=== PATIENT | male | born 1965 | race Caucasian/White ===

== ENCOUNTER 2023-04-11 13:33 | Outpatient (OUT) | payer OTHER, SELFPAY ==
--- NOTE | 2023-04-11 14:00 | CA_ITS ---
Patient: SHELLI MILLIGAN Exam Date: 04/11/2023 : 1965 Gender:M Ordering : [facility] [place] Admission #: [id number] Family : Order #: [id number] CLICK HERE TO VIEW EXAM ECHOCARDIOGRAM REPORT PROCEDURE: CA ECHO DOPPLER COMPLETE INDICATIONS: Chronic diastolic heart failure COMPARISON: None. DESCRIPTION: COMPLETE ECHOCARDIOGRAM Real-time transthoracic echocardiography with 2D, M-mode, spectral and color flow Doppler performed. QUALITY: Technical quality was adequate. LEFT VENTRICLE: Mild dilatation. Thickened septal wall. LV EF: Global left ventricular systolic function is normal; visually estimated ejection fraction is 55 to 60%. DIASTOLIC: Diastolic function is indeterminant. ATRIAL SEPTUM: Inadequately seen. LEFT ATRIUM: Severe dilatation. RIGHT ATRIUM: Severe dilatation. RIGHT VENTRICLE: Mild dilatation. Normal right ventricular systolic function. TRICUSPID VALVE: Normal mobility and thickness. Mild regurgitation. Mild pulmonary hypertension. RVSP 41mmHg MITRAL VALVE: Normal mobility and thickness. No evidence of mitral valve stenosis. There is no mitral annular calcification. Trivial mitral regurgitation. AORTIC VALVE: Normal trileaflet appearance. Thickened aortic valve. Normal leaflet mobility. No evidence of aortic valve stenosis. Trivial aortic regurgitation. AORTIC ROOT: Normal diameter and appearance. PULMONIC VALVE: Normal thickness and mobility. No stenosis. Trivial regurgitation. PERICARDIUM: Anterior free space; trivial effusion versus fat pad. IVC: Collapses with inspirations. Severely dilated measuring 3.1cm. CONCLUSION: 1. Global left ventricular systolic function is normal; visually estimated ejection fraction is 55 to 60%. 2. Diastolic function is indeterminate. 3. Severe biatrial enlargement. 4. The right ventricle is mildly dilated with normal systolic function. 5. Mild tricuspid regurgitation. 6. Mildly elevated right ventricular systolic pressure. 7. Anterior free space; trivial effusion versus fat pad. Adult Echocardiography Procedure Report Left Ventricle LVEDD (3.7 - 5.6 cm): 5.88 cm LVESD (2.2 - 4.0 cm): 4.46 cm LVIVS thickness (0.6 - 1.2 cm): 1.64 cm LVPW thickness (0.5 - 1.0 cm): 1.02 cm e': 0.10 m/s E - e': 4.78 LVOT Max Gradient: 4.45 mm[Hg] LVOT Area (cm2): 1.05 m/s Peak Velocity (LVOT): 1.05 m/s Mean Velocity (LVOT): 0.69 m/s LVOT Diameter 2.23 cm Left Atrium LA Volume Index (2D A2C): 73.31 ml/m2 Left Atrium Systolic Dimension: 5.41 cm Mitral Valve MV E to A Ratio: 1.43 Mitral Valve A-Wave Peak Velocity: 0.35 m/s Mitral Valve E-Wave Peak Velocity: 0.50 m/s Right Ventricle RV Internal Diastolic Dimension: 4.21 cm Aorta AO Root Diam: 3.50 cm Ascending Ao Diam: 3.19 cm Aortic Valve AoV Area (Peak Adryan): 3.52 cm2, 3.52 cm2 AoV Area (VTI): 3.27 cm2, 3.27 cm2 Peak Velocity(Antegrade Flow): 1.17 m/s Peak Gradient(Antegrade Flow): 5.49 mm[Hg] Mean Velocity(Antegrade Flow): 0.83 m/s Mean Gradient(Antegrade Flow): 3.11 mm[Hg] Velocity Time Integral: 26.72 cm Tricuspid Valve Peak Velocity (Regurgitant Flow): 2.45 m/s, 2.85 m/s Pulmonic Valve Peak Velocity: 0.80 m/s Peak Gradient: 2.43 mm[Hg], 2.72 mm[Hg] Right Atrium Right Atrium Systolic Pressure: 112.76 ml, 112.76 ml Dictated by: Sonali Lugo M.D. on 04/12/2023 at 16:52 Approved by: Sonali Lugo M.D. on 04/12/2023 at 16:55
== END 2023-04-11 13:34 ==
LOC: CARD 13:37
PROVIDERS: PCP Family Medicine; Visit Provider Nurse Practitioner Family
DX: I50.32 Chronic diastolic (congestive) heart failure (principal); I07.1 Rheumatic tricuspid insufficiency
CPT/HCPCS: 93306; 93356

== ENCOUNTER 2025-08-12 12:48 | Outpatient (OUT) | payer OTHER, SELFPAY ==
--- OUTSIDE RECORDS SUMMARY | 2025-08-12 12:53 | XMS_ITS | Clinical Summary ---
Author Organization [facility] Address [address] [place] [address] Care Team Providers Care Enrollment Clerk Name Role Phone Nelida Stock HOPPER FILLER-Bi Primary Care Provider [phone] Allergies Active AllergyReactionsCriticalityNoted DateCommentsBee Venom Protein (Honey Bee)Yztpaes3809/05/2023olchicineOther,Lluvaab2910/04/2013 Sleepiness Sleepiness Sleepiness Sleepiness Pollen IiqrkxpqFusrnrz48/14/2023 Medications MedicationSigDispense QuantityRefillsLast FilledStart DateEnd DateStatus buPROPion SR (Wellbutrin SR) 150 mg 12 hr tablet Take 300 mg by mouth in the morning.08/03/2022ctive temazepam (Restoril) 30 mg capsule Take 1 capsule by mouth at bedtime.Active traMADol (Ultram) 50 mg tablet TAKE 1 TABLET BY MOUTH TWICE DAILY NEEDED FOR PAIN (M48.02) DUE NOW 30 DAYS Active baclofen (Lioresal) 20 mg tablet if needed at bedtime.08/10/2022ctive gabapentin (Neurontin) 300 mg capsule 600 mg two times daily.09/06/2023ctive esomeprazole (NexIUM) [address] capsule Take 40 mg by mouth before breakfast. 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 90 tablet 5Active busPIRone (Buspar) 10 mg tablet Take 1 tablet by mouth two times daily.5Active tadalafil (Cialis) 20 mg tablet Take 1 tablet by mouth if needed.5Active apixaban (Eliquis) 5 mg tablet Indications:Cerebrovascular accident (CVA), unspecified mechanism (CMS/HCC)Take 1 tablet (5 mg) by mouth in the morning and at bedtime. 180 tablet ctive furosemide (Lasix) 40 mg tablet Indications:Chronic diastolic heart failure (CMS/HCC)Take 1 tablet (40 mg) by mouth once daily as directed. In addition to 20mg tablets daily = 60mg daily 90 tablet 6Active Additional Information Patient taking differently:40 mg oralAs needed, In addition to 20mg tablets daily = 60mg daily, Reported on 07/23/2025 furosemide (Lasix) 20 mg tablet Indications:Chronic diastolic heart failure (CMS/HCC)Take 1 tablet (20 mg) by mouth once daily as directed. In addition to 40mg tablets = 60mg daily 90 tablet 5Active Additional Information Patient taking differently:20 mg oralAs needed, In addition to 40mg tablets = 60mg daily, Reported on 07/23/2025 metoprolol succinate XL (Toprol-XL) 25 mg 24 hr tablet Indications:Paroxysmal atrial fibrillation (CMS/HCC)Take 1 tablet (25 mg) by mouth in the morning. Do not crush or chew. 90 tablet 506Active dofetilide (Tikosyn) 250 mcg capsule Indications:PAF (paroxysmal atrial fibrillation) (CMS/HCC)TAKE 1 CAPSULE (250 MCG) BY MOUTH TWO TIMES DAILY. 60 capsule 1105Active Active Problems ProblemNoted DateDiagnosed DateCervical niluifytlpuoh09/23/2025Left elbow pain 07/15/2025hest pain07/03/2025ute stress kfbausfi27/10/1975Sioxxxr19/10/2025 Colon cancer ztusphwjg77/10/2025ute ischemia of small intestine due to thrombosis of mesenteric vein10/08/2024trial flxdlitxnkpp82/17/2024History of ecrjqw8310/08/2024Ischemic bowel kkwlgnf4510/08/2024S/P cervical discectomy 10/08/2024Superior mesenteric artery fkuhecgzog31/17/2024trial flutter 08/13/2024cute abdominal pain2024Neck pain06/12/2024t increased risk of exposure to COVID-19 virus04/18/2024trial flutter with rapid ventricular dxeamuni66/27/1437Bmdi97/27/2024Gouty wmonhzcxz01/27/7140Kprbpgld83/27/2024 Ischemia and infarction of iykaqw1304/18/2024Left arm vzaviulg96/27/2024Left shoulder pain04/18/2024Macrocytosis without wergnv1804/18/2024Numbness of fingers 04/18/2024Shortness of cuxujj6804/18/2024cid uclfbt22rthritis arpal tunnel ojibpkfc14hanges in skin aylvgst91DD (degenerative disc disease), qrlsobnt10/08/2023 09/29/2023ysphagia, jxcasnvpete70ystonia musculorum htxvvfstu60MyalgiaRight sided weakness Spasmodic xgjsyiwckts69Stroke due to embolism of basilar zzbsyx65Impairment of kgfhxqw2609/20/2023 09/29/2023Stroke due to occlusion of basilar scfrty21Edema cute on chronic diastolic heart Acute pulmonary edema Overview (09/29/2023): Last Assessment & Plan: Findings on chest x-ray and CT abdomen suggestive of vascular congestion and heart failure. Previous history of heart failure. Reviewed right left heart catheterization from [facility] in 2017. Diastolic heart failure at that time. 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 Can discharge with Lasix 20 mg as needed for 5 pound weight gain or shortness of breath. We can consider spironolactone to help with its potassium sparing effects given his chronic issues with hypokalemia. Also discussed with patient MRI findings suggestive of hypertrophic cardiomyopathy. He has asymmetric septal hypertrophy in the inferior septal wall. He also has scar present. Patient has no obstruction. Patient stated his family history is significant for extensive cardiac disease on his father's s shakila. Said everyone on his father's side has young unfortunately his mother's side she is a [place] immigrant and does not know much about her family history. Elevated dpiddkyp37 Overview (09/29/2023): Last Assessment & Plan: Trivial elevation, unclear etiology Possibly from renal infarct? D-dimer negative, unlikely pulmonary embolism Suspect related to diastolic dysfunction and decompensated diastolic heart failure. No coronary artery disease based on heart catheterization from 12/2016 only with myocardial bridging segments. Renal infarctionHypertensionCHF (congestive heart failure)Coronary-myocardial bridgeAortic root dilationLeft atrial enlargement Encounters DateTypeDepartmentCare ZkbcZrrkjbdfoin54/08/2025Orders Only [facility] V[facility] Center Vascular Lab [address] [place] [address] Bettina Gordon RN Acute on chronic diastolic heart failure (CMS/HCC) (Primary Dx)07/23/2025 8:30 AM EDT - 07/23/2025 12:[address] [facility] Heart and Vascular Center Vascular Lab [address] [place] [address] Jose Miguel Spivey MD Ablation a-fib w/ pvi [41600 (CPT??)]07/23/2025 8:24 AM EDTAnesthesia Event [facility] Heart [facility] [place] [facility] [address] [facility] [place] [address] Luis Alberto David MD Meehl, Austin, MD 07/23/2025 7:22 AM EDT - 07/23/2025 2:25 PM EDTHospital Encounter [facility] [address] [place] [address] Jose Miguel Spivey MD Paroxysmal atrial fibrillation (CMS/HCC) Discharge Disposition: Home or Self Care ()07/23/20253591Avnrtj03/19/2025Telephone [place] [address] [facility] [place] [address] Alecia Rodrigues MA 07/09/20250628Fjqisw72/11/2025[facility] [address] [place] [phone] Jose Miguel Spivey MD PAF (paroxysmal atrial fibrillation) (CMS/HCC)07/01/2025Orders Only [place] [address] [facility] [place] [phone] Alecia Rodrigues MA Paroxysmal atrial fibrillation (CMS/HCC) (Primary Dx)06/30/2025Telephone [facility] [address] [place] [facility] [place] [address] Alecia Rodrigues MA 06/23/2025Orders Only [facility] [address] [place] [phone] Felipe Nathan MD 06/20/2025 8:00 AM EDTAncillary Procedure [facility] [address] [place] [phone] Awareness of xkiglnhctl64/27/2025[facility] [address] [place] [facility] [place] [address] Sabina Lopez MA Chronic diastolic heart failure (CMS/HCC)05/20/2025 6:00 PM EDTAncillary Procedure [facility] [address] [place] [address] Awareness of heartbeatsfrom Last 3 Months Family History Medical HistoryRelationNameCommentsCoronary artery diseaseFatherCancerMaternal GrandfatherCancerMaternal GrandmotherCancerMotherRelationNameStatusComments FatherDeceasedMaternal GrandfatherMaternal GrandmotherMotherAlive Social History Tobacco UseTypesPacks/DayYears UsedDateSmoking Tobacco: FormerCigarettesPassive Smoke Exposure: PastSmokeless Tobacco: Never Tobacco Cessation:Counseling Given: Not Answered Alcohol UseStandard Drinks/WeekCommentsYes3 (1 standard drink = 0.6 oz pure alcohol)3 times per week beerUT Safety & EnvironmentAnswerDate RecordedFear of Current or Ex-PartnerNot on file12/14/2023Emotionally AbusedNot on file 4Physically AbusedNot on file12/14/2023Sexually AbusedNot on file 4Physically or Sexually AbusedNot on file12/14/2023Sex and Gender InformationValueDate RecordedSex Assigned at DefpaAkaj63/01/2025 7:22 AM EDT Legal HupGqed7404/20/2022 11:54 PM EDTGender VytkfwcbQdtk80/01/2025 7:22 AM EDT Sexual OrientationHeterosexual or Mareuznn83/01/2025 7:22 AM EDT Last Filed Vital Signs Vital SignReadingTime TakenCommentsBlood Kakkczvl176/7610 12:15 PM EDT Vmzjs669407/23/2025 12:15 PM JTEEbbdmjtcifr51 ??C (96.8 ??F)07/23/2025 11:15 AM EDTRespiratory Mhnr2210 12:15 PM EDTOxygen Eiqjiswkbb59%07/23/2025 12:15 PM EDTInhaled Oxygen Concentration--Oybldh83.8 kg (220 lb)04/01/2025 10:59 AM KNVXgmfdd953.5 cm (6' 3 )04/01/2025 10:59 AM EDTBody Mass Index27. 10:59 AM EDT Plan of Treatment DateTypeDepartmentCare Team (Latest Contact Info)Egtatvbscbn72/21/2025 1:40 PM EDTFoll-[facility] [address] [place] [facility] [place] [facility] [place] [phone] Jessica Rausch, CLINICAL OPERATIONS CONSULTANT [address] [place] [phone] 08/28/2025 9:00 AM ESTFollow-[facility] [address] [place] [facility] [place] [phone] Cedric Branham, CLINICAL OPERATIONS CONSULTANT [address] [place] [address] Health MaintenanceDue DateLast DoneCommentsCT Sizwdyhaexei1966FIT-DNA 1966FIT1966FOBT07/16/19661932Eoanifhuvyfum1966Depression Screening 1978Pneumococcal Vaccine: Pediatrics (0 to 5 Years) and At-Risk Patients (6 to 64 Years) (1 of 2 - PCV)1985Adult Zfuvayz7007/16/1988Colonoscopy /Colorectal Cancer Whlwiyqme08/14/2024COVID-19 Vaccine ( season)/, 10/21/2021, 01/01/2021, Additional history existsInfluenza Vaccine (#1)06/23/2025Hepatitis B CtbvhctnHsjrqzzup28/30/2008, 11/05/2007, 10/04/2007Zoster JinougmnWcvzhbeeh58/04/2024, 01/09/2024HIB Vaccines Aged OutNo longer eligible based on patient's age to complete this topicHPV VaccinesAged OutNo longer eligible based on patient's age to complete this topic IPV VaccinesAged OutNo longer eligible based on patient's age to complete this topicMeningococcal B VaccineAged OutNo longer eligible based on patient's age to complete this topicMeningococcal VaccineAged OutNo longer eligible based on patient's age to complete this topicRotavirus VaccinesAged OutNo longer eligible based on patient's age to complete this topic Medical Devices ImplantedTypeAreaManufacturerDevice IdentifierShelf Expiration DateModel / Serial / LotMonitor,Cardiac,Lux,Dxii+[facility] - [id number] - [id number] Implanted:Qty: 1 on 09/16/2024 by Jose Miguel Spivey [facility] CenterImplant[facility] Loop RecorderBoston Oatgzmgfjb28/[id number] / [id number] / Procedures Procedure NamePriorityDate/TimeAssociated DiagnosisCommentsECG 12-LEADRoutine 07/23/2025 11:34 AM EDT ABLATION A-FIB W/ XUWJfglvuj93/01/2025 11:07 AM EDT Paroxysmal atrial fibrillation (CMS/HCC) ACTIVATED CLOTTING EJPZUyygfww16/01/2025 10:58 AM EDT NFISCJQXQYUhyaliy98/01/2025 10:32 AM EDT DPCZWSUYSNIDsikwfu01/01/2025 10:32 AM EDT HIGH SENSITIVITY TROPONIN LEcxnrqm28/01/2025 10:32 AM EDT BILIRUBIN, YESIKQFvqyboq84/01/2025 10:32 AM EDT BILIRUBIN, WEOUGYnbkurb11/01/2025 10:32 AM EDT LACTATE AFTYHOVYIREJHAudfhyu92/01/2025 10:32 AM EDT ACTIVATED CLOTTING DFKYUpomqev77/01/2025 10:22 AM EDT ACTIVATED CLOTTING NIMEVlphgjq46/01/2025 10:03 AM EDT ACTIVATED CLOTTING RHQUXtvkbhb17/01/2025 9:43 AM EDT ANESTHESIA ARTERIAL LINE PSETYCMORWyhrgsq65/01/2025 8:56 AM EDT TN AN ELECTIVE ENDOTRACHEAL EMGUHNXvyfvrp36/01/2025 8:46 AM EDT ECG 12-MXHLQrcdpnr17/01/2025 8:31 AM EDT POCT GLUCOSE METER UNSOLICITED CFKVQHIChuvokg11/01/2025 8:00 AM EDT PROTIME-XTKYxbtoni92/01/2025 7:54 AM EDT CARDIAC DEVICE CHECK CHECK - NOVRQBXeuobbp57/04/2025 9:40 AM EDT Awareness of heartbeats CARDIAC DEVICE CHECK - REMOTE - LOOP RECORDER (ILR)Vudurje8906/23/2025 12:00 AM EDTCARDIAC DEVICE CHECK CHECK - MHXBDNFdrtjai30/07/2025 2:54 PM EDT Awareness of heartbeats CARDIAC DEVICE CHECK CHECK - RYMTGAQdiwbzt14/22/2025 12:47 PM EDT Awareness of heartbeats from Last 3 Months Results * ECG 12 lead (07/23/2025 11:34 AM EDT) Only the most recent of2 resultswithin the time period is included. ComponentValueRef RangeTest MethodAnalysis TimePerformed AtPathologist Signature Ventricular Qicf96PZDVK MUSEAtrial Rtnf92LHEPY MUSEPR Jxowdqmy868fyFO MUSEQRS QGXHEXJW477xhPI MUSEQT Oexkqmjs590rpPH MUSEQTC CALCULATION(BAZETT)510msGE MUSEP Ccxf30oltmjtcHV ZDSAX-Swln-05llmuvykSE MUSET Wave Kket173zhdgubiKV MUSESpecimen (Source)Anatomical Location / LateralityCollection Method / VolumeCollection TimeReceived Time07/23/2025 11:29 AM EDT1 4:37 PM EDT Impressions GE MUSE - 07/23/2025 4:37 PM EDT Normal sinus rhythm Incomplete right bundle branch block ST & T wave abnormality, consider anterolateral ischemia Prolonged QT Abnormal ECG When compared with ECG of 23-JUL-2025 08:17, No significant change was found Confirmed by Demetrice NATHAN SAMER J. ([id number]) on 07/23/2025 4:37:20 PM Narrative Procedure Note Felipe Nathan MD - 07/23/2025 IMPRESSION: Normal sinus rhythm Incomplete right bundle branch block ST & T wave abnormality, consider anterolateral ischemia Prolonged QT Abnormal ECG When compared with ECG of 23-JUL-2025 08:17, No significant change was found Confirmed by Demetrice NATHAN SAMER J. (57) on 07/23/2025 4:37:20 PM Authorizing ProviderResult TypeResult StatusPamichelle ZABALA ORDERABLESFinal ResultPerforming OrganizationAddressCity/State/ZIP CodePhone Number GE MUSE * ABLATION A-FIB W/ PVI (07/23/2025 11:07 AM EDT)Anatomical RegionLaterality ModalityOtherSpecimen (Source)Anatomical Location / LateralityCollection Method / VolumeCollection TimeReceived Time Narrative 07/23/2025 11:08 AM EDT Table formatting from the original result was not included. ATRIAL FIBRILLATION ABLATION PROCEDURE NOTE DATE OF PROCEDURE: ??07/23/2025 PERFORMING PHYSICIAN: Dr. Jose Miguel Spivey HOSPICE MANAGER: LORIN CONSENT: Patient NAME OF THE PROCEDURE: Pulmonary Vein Isolation and Comprehensive EP study. INDICATIONS FOR PROCEDURE: 1. Paroxysmal atrial fibrillation. PROCEDURES PERFORMED: 1. Sonosite guided venous access as noted below and images stored. 2. Comprehensive EP study and catheter ablation for persistent atrial fibrillation through the pulmonary vein isolation technique. This includes right atrial recording and pacing, His bundle recording and right ventricular recording and pacing. 3. Intracardiac EP 3D mapping. 4. Intracardiac echocardiogram 5. Left atrial and coronary sinus recording and pacing to assess ablation results. 6. Left heart pressure measurements and LV pacing and recording. 7. Induction of arrhythmia and testing of ablation results using intravenous adenosine infusion. 8. Fluroscopy. FLUROSCOPY: 12.4min/92mGray EBL: 25cc ?? PROCEDURE NOTE: Pt was brought to EP lab and she was in sinus rhythm, so SHIV was deferred. Thereafter, we proceeded to do atrial fibrillation ablation. ??Both the groins were then prepared and draped. Ultrasound was used to determine the course and patency of the femoral veins on both sides and they were noted to be patent and the image stored in PACS. After infiltration with 1% lidocaine, 3 venous sheaths were placed in the right as noted below. RFV: 8Fx1 CS Catheter (EZ Steer) 9Fx1: ICE catheter. 8F -->17F: Faradrive sheath for PFA catheter Heparin bolus was given followed by additional bolus and continuous intravenous drip to target ACT around 350. An intracardiac ultrasound catheter was inserted into the right atrium to examine the right atrial anatomy, atrial septum, pulmonary vein anatomy and to monitor for pericardial effusion and guide transseptal access. ICE revealed that the patient had a significantly dilated right atrium and left atrium and no pericardial effusion. At this point I decided to proceed with the transseptal puncture to perform A. fib ablation. Single transseptal access technique was used to cross to the left side. Following the first transeptal access, which was achieved via puncture of the thinner aspect of the septum using Nicole needle, Octoray catheter was placed in the left atrium. Pulmonary vein and left atrial anatomic mapping were performed using a 3-D CARTO computer-based mapping system. Identification of the pulmonary vein ostia was assisted by the left atrial signals on the ablation catheter, the ICE catheter and the Octoray catheter placed in the individual pulmonary veins. Mapping revealed a small low voltage area in the posterior LA of size 3cms diameter. I then proceeded to exchange the SL1 for 17F Faradrive sheath. Farawave multipolar catheter was advanced over a wire with negative aspiration in periodic fashion to avoid any air bubbles. Thereafter the catheter was advanced to each of the veins over the wire to maintain coaxial placement of catheter. 2-3 PFA energy pulses were given in each position and then position rotated to 36degrees to get new location and repeat PFA energy were provided. Then this process was repeated in the flower configuration in each veins. ??This led to complete isolation of each vein. Repeat mapping with Octoray catheter revealed isolation of all 4 veins. ?? Exit block verified with pacing from each vein as well as different locations around the vein.LV pacing revealed no left sided retrograde accessory pathway. Adenosine did not reveal any reconnection. Burst pacing down to 300ms induced non sustained atrial fibrillation of few beats and then self terminated. I decided to proceed to the right atrium and then proceeded to verify prior CTI ablation which was still noted. Bidirectional block was demonstrated with pacing revealing a timing of 194ms. The ICE catheter was used to reexamine the intracardiac anatomy and this showed no pericardial effusion. ICE catheter and all catheters were removed. Venous sheaths were pulled, and hemostasis achieved with Perclose sutures and Vascade closure device.He was transferred to observation bay for observation.Esophagus was mapped towards the left side with change of temp from basleline of 35.1 to 35.6C. LA baseline (mmHg) ??33/17 HR 53bpm LA 600ms pacing (mmHg) 22/15 LA 500ms pacing (mmHg) 26/15 AHms 73, 77 HVms 46, 47 VERPms 600/310, VA condunction+ AV Wenkebach ms 390ms ?? AH jump ms NA AVNERP ms NA AERP ms 600/320 POST PROCEDURE DIAGNOSIS 1. Paroxysmal atrial fibrillation s/p PVI (WACA) with PFA. ?? 2. CTI flutter s/p prior ablation with bidirectional block demonstrated again 2. EP study revealing no retrograde accessory pathway. 3. Normal LA voltage except small area noted in the posterior aspect that is 2-3cms diameter. 4. Elevated LA pressures. SPECIMEN REMOVED: None PLAN: 1. Anticoagulation after 2 hrs of sheath removal. 2. Protonix 40mg bid x 1 month. 3. Groin precautions. Jose Miguel Spivey MD Cardiac Electrophysiology ?? Authorizing ProviderResult TypeResult StatusPaul Patric [facility] ELECTROPHYSIOLOGY PROCEDURESFinal Result * Activated clotting time (07/23/2025 10:58 AM EDT) Only the most recent of4 resultswithin the time period is included. ComponentValueRef RangeTest MethodAnalysis TimePerformed AtPathologist Signature Activated Clotting Bdrw00736 - 152 07/23/2025 11:00 AM [facility] ([facility])Specimen (Source)Anatomical Location / LateralityCollection Method / VolumeCollection TimeReceived TimeBloodVenous blood specimen / Moleudx3207/23/2025 10:58 AM EDT1 11:00 AM EDT Narrative Authorizing ProviderResult TypeResult Francia BOTELLO POINT OF CARE TEST DOCKED DEVICE UNSOLICITED RESULTSFinal ResultPerforming OrganizationAddress City/State/ZIP CodePhone Number [facility]) [place] [address] * (ABNORMAL) High Sensitivity Troponin I (07/23/2025 10:32 AM EDT)ComponentValue Ref RangeTest MethodAnalysis TimePerformed AtPathologist SignatureHigh Sensitivity Troponin I84(HH)<20 ng/L1 12:25 PM [facility] ([facility])Specimen (Source)Anatomical Location / LateralityCollection Method / VolumeCollection TimeReceived TimeBloodVenous blood specimen / UnknownArterial Line / Oiiutop0107/23/2025 10:32 AM EDT1 10:32 AM EDT Narrative Authorizing ProviderResult TypeResult Francia BOTELLO BLOOD ORDERABLES Final ResultPerforming OrganizationAddressCity/State/ZIP CodePhone Number [facility]) [address] [place] [phone] * (ABNORMAL) Hemoglobin (07/23/2025 10:32 AM EDT)ComponentValueRef RangeTest MethodAnalysis TimePerformed AtPathologist UhgbwvkfzNxyzoangkx81.2(L)13.0 - 17.0 g/dL07/23/2025 10:53 AM [facility] ([facility])Specimen (Source) Anatomical Location / LateralityCollection Method / VolumeCollection Time Received TimeBloodVenous blood specimen / UnknownArterial Line / Unknown 07/23/2025 10:32 AM EDT1 10:32 AM EDT Narrative Authorizing ProviderResult TypeResult StatusJose Miguel BOTELLO BLOOD ORDERABLES Final ResultPerforming OrganizationAddressCity/State/ZIP CodePhone Number [facility]) [address] [place] [phone] * (ABNORMAL) Lactate dehydrogenase (07/23/2025 10:32 AM EDT)ComponentValueRef RangeTest MethodAnalysis TimePerformed AtPathologist JyizratieNF902(L)140 - 271 U/L1 11:11 AM [facility] ([facility])Specimen (Source) Anatomical Location / LateralityCollection Method / VolumeCollection Time Received TimeBloodVenous blood specimen / UnknownArterial Line / Unknown 07/23/2025 10:32 AM EDT1 10:32 AM EDT Narrative Authorizing ProviderResult TypeResult Francai BOTELLO BLOOD ORDERABLES Final ResultPerforming OrganizationAddressCity/State/ZIP CodePhone Number [facility] ([facility]) [address] [place] [address] * Haptoglobin (07/23/2025 10:32 AM EDT)ComponentValueRef RangeTest Method Analysis TimePerformed AtPathologist VgxsmsxckRdnmgvzfara805.032.0 - 197.0 mg/dL07/23/2025 1:17 PM [facility] ([facility])Comment:Testing performed using a new methodology, turbidimetry. Normal ranges have been updated. Old normal range was 26-164 mg/dL.Specimen (Source)Anatomical Location / LateralityCollection Method / VolumeCollection TimeReceived TimeBloodVenous blood specimen / UnknownArterial Line / Zrezxwe8407/23/2025 10:32 AM EDT 07/23/2025 10:32 AM EDT Narrative Authorizing ProviderResult TypeResult Francia BOTELLO BLOOD ORDERABLES Final ResultPerforming OrganizationAddressCity/State/ZIP CodePhone Number [facility]) [address] [place] [address] * Bilirubin, direct (07/23/2025 10:32 AM EDT)ComponentValueRef RangeTest Method Analysis TimePerformed AtPathologist SignatureBilirubin, Direct0.10 - 0.2 mg/dL07/23/2025 11:11 AM [facility] ([facility])Specimen (Source) Anatomical Location / LateralityCollection Method / VolumeCollection Time Received TimeBloodVenous blood specimen / UnknownArterial Line / Unknown 07/23/2025 10:32 AM EDT1 10:32 AM EDT Narrative Authorizing ProviderResult TypeResult Francia BOTELLO BLOOD ORDERABLES Final ResultPerforming OrganizationAddressCity/State/ZIP CodePhone Number [facility]) [place] [address] * Bilirubin, total (07/23/2025 10:32 AM EDT)ComponentValueRef RangeTest Method Analysis TimePerformed AtPathologist SignatureTotal Bilirubin0.60.3 - 1.0 mg/dL07/23/2025 11:11 AM [facility] ([facility])Specimen (Source) Anatomical Location / LateralityCollection Method / VolumeCollection Time Received TimeBloodVenous blood specimen / UnknownArterial Line / Unknown 07/23/2025 10:32 AM EDT1 10:32 AM EDT Narrative Authorizing ProviderResult TypeResult Francia BOTELLO BLOOD ORDERABLES Final ResultPerforming OrganizationAddressCity/State/ZIP CodePhone Number [facility]) [place] [address] * ANESTHESIA ARTERIAL LINE PLACEMENT (07/23/2025 8:56 AM EDT) Narrative Luis Alberto David MD - 07/23/2025 8:56 AM EDT Luis Alberto David MD 07/23/2025 12:28 PM Arterial Line: Date/Time: 07/23/2025 8:56 AM An arterial line was placed Procedure performed using ultrasound guidance.in the OR for the following indication(s): continuous blood pressure monitoring and blood sampling needed. A 20 G (size), 5 cm (length), Angiocath (type) catheter was placed, into the Right radial artery, secured by Tegaderm and tape. Events: patient tolerated procedure well with no complications. Staffing Performed: resident/SITE DIRECTOR/CAA Anesthesiologist: Luis Alberto David MD Resident/SITE DIRECTOR: Jarret Perez MD Performed by: Jarret Perez MD Authorized by: Luis Alberto David MD ?? Authorizing ProviderResult TypeResult Teresita David MDANESTHESIA ORDERABLESFinal Result * TN AN ELECTIVE ENDOTRACHEAL AIRWAY (07/23/2025 8:46 AM EDT) Luis Alberto Gerard MD - 07/23/2025 8:46 AM EDT Luis Alberto David MD 07/23/2025 12:28 PM Airway Date/Time: 07/23/2025 8:46 AM Reason: elective Airway not difficult General Information and Staff Patient location during procedure: OR Anesthesiologist: Luis Alberto David MD Resident/SITE DIRECTOR/CAA: Jarret Perez MD Performed: resident/SITE DIRECTOR/CAA Patient Condition Indications for airway management: anesthesia Patient position: sniffing Planned trial extubation Sedation level: deep Final Airway Details Preoxygenated: yes Final airway type: endotracheal airway Successful airway: ETT Cuffed: yes Successful intubation technique: video laryngoscopy Adjuncts used in placement: intubating stylet Endotracheal tube insertion site: oral Blade: Hamilton Blade size: #4 ETT size (mm): 8.0 Cormack-Lehane Classification: grade I - full view of glottis Placement verified by: chest auscultation and capnometry Measured from: lips ETT to lips (cm): 23 Number of attempts at approach: 1 Number of other approaches attempted: 0 Authorizing ProviderResult TypeResult StatusMutiffany David MDANESTHESIA ORDERABLESFinal Result * POCT glucose meter (07/23/2025 8:00 AM EDT)ComponentValueRef RangeTest Method Analysis TimePerformed AtPathologist SignatureGlucose IMF22717 - 105 mg/dL 07/23/2025 8:15 AM [facility]TM[facility] ([facility])Comment:ngrothaSpecimen (Source)Anatomical Location / LateralityCollection Method / VolumeCollection TimeReceived TimeBloodCapillary blood specimen / Zcbrhup6207/23/2025 8:00 AM EDT 07/23/2025 8:15 AM EDT Narrative [facility] ([facility]) - 07/23/2025 8:15 AM EDT Waived Testing in the ED is performed under the ED CLIA certificate #[id number]. Authorizing ProviderResult TypeResult StatusJose Miguel BOTELLO BLOOD ORDERABLES Final ResultPerforming OrganizationAddressCity/State/ZIP CodePhone Number [facility] ([facility]) [address] [place] [address] * Protime-INR (07/23/2025 7:54 AM EDT)ComponentValueRef RangeTest MethodAnalysis TimePerformed AtPathologist XbhqepszzVgqbbhq49.912.3 - 14.8 Vuyefkb6807/23/2025 8:23 AM EDTMIMBRES [facility] ([place])INR1.070.90 - 1.1010 8:23 AM EDT [facility] ([facility])Comment: [facility] RECOMMENDED INR FOR WARFARIN THERAPY CONDITION ?INR PROPHYLAXIS OF VENOUS THROMBOSIS ? 2-3 (HIGH-RISK SURGERY) TREATMENT OF VENOUS THROMBOSIS ? 2-3 TREATMENT OF PULMONARY EMBOLISM ?2-3 PREVENTION OF SYSTEMIC EMBOLISM: ? 2-3 ?ACUTE MYOCARDIAL INFARCTION ?TISSUE HEART VALVES ?VALVULAR HEART DISEASE ?ATRIAL FIBRILLATION ?RECURRENT SYSTEMIC EMBOLISM MECHANICAL HEART VALVE ? 2.5-3.5 FROM: ORAL ANTICOAGULANTS. ??MECHANISM OF ACTION, CLINICAL EFFECTIVENESS, AND OPTIMAL THERAPEUTIC RANGE. ??CHEST 1995;108:231S-246S. Specimen (Source)Anatomical Location / LateralityCollection Method / Volume Collection TimeReceived TimeBloodVenous blood specimen / UnknownVenipuncture / Cjptqjj4807/23/2025 7:54 AM EDT1 8:04 AM EDT Narrative Authorizing ProviderResult TypeResult StatusJose Miguel Spivey MDLAB BLOOD ORDERABLES Final ResultPerforming OrganizationAddressCity/State/ZIP CodePhone Number [facility] ([facility]) [address] [place] [address] * CARDIAC DEVICE CHECK - REMOTE - LOOP RECORDER (ILR) (06/26/2025 9:40 AM EDT) Only the most recent of3 resultswithin the time period is included. Specimen (Source)Anatomical Location / LateralityCollection Method / Volume Collection TimeReceived Time Narrative Authorizing ProviderResult TypeResult StatusJose Miguel Spivey MDCV IMPLANTABLE CARDIAC DEVICE PROCEDURESFinal ResultPerforming OrganizationAddressCity/State/ZIP Code Phone Number [facility] * Cardiac device check - Remote loop recorder (ILR) (06/23/2025 12:00 AM EDT) Anatomical RegionLateralityModalityOtherSpecimen (Source)Anatomical Location / LateralityCollection Method / VolumeCollection TimeReceived Time06/23/2025 Narrative Authorizing ProviderResult TypeResult StatusFelipe Nathan [facility] IMPLANTABLE CARDIAC DEVICE PROCEDURESFinal Result from Last 3 Months Insurance Advance Directives * Full Code (Latest Code Status on File) Date ActivatedDate PsekgjvrokoAttikehw81/1/2025 11:18 AM07/23/2025 5:38 PM Care Teams Team MemberRelationshipSpecialtyStart DateEnd Date Nelida Stock FNP-C [address] [place], [place] [id number] PCP - GeneralNurse Aqxaxhtiwknr11/20/25
--- OUTSIDE RECORDS SUMMARY | 2025-08-12 12:53 | XMS_ITS | Clinical Summary ---
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 Name Role Phone Taina Colindres MD Primary Care Provider [phone] Allergies Active AllergyReactionsCriticalityNoted DateCommentsBeesOther: See Comments 12/26/2012 Mild, swelling,reddness ColchicineOther: See Mnjzlhxh01/13/2013 Sleepiness Medications MedicationSigDispense QuantityRefillsLast FilledStart DateEnd DateStatus clonazePAM (KLONOPIN) 1 mg tablet Take 1 tablet by mouth twice daily.12/26/2012ctive baclofen 20 mg tablet Take 20 mg by mouth three times daily as needed.12/26/2012ctive methylPREDNISolone (MEDROL, BELL,) 4 mg Dose-Pack Indications:Diarrhea,Weight loss,Elevated serum GGT levelTake by mouth. As Instructed per packageActive lansoprazole (PREVACID) 30 mg capsule Indications:Diarrhea,Weight loss,Elevated serum GGT levelTake 30 mg by mouth once daily.Active oxyCODONE-acetaminophen 7.5-325 mg tablet Indications:Diarrhea,Weight loss,Elevated serum GGT levelTake 1 tablet by mouth every 4 hours as needed.Active ondansetron (ZOFRAN) 4 mg tablet Indications:Diarrhea,Weight loss,Elevated serum GGT levelTake 4 mg by mouth every 8 hours as needed.Active pantoprazole 40 mg tablet Indications:Diarrhea,Weight loss,Elevated serum GGT levelTake 40 mg by mouth once daily.Active LORazepam (ATIVAN) 0.5 mg tab Indications:Diarrhea,Weight loss,Elevated serum GGT levelTake 1 tablet by mouth every 8 hours. 10 tablet ctive Active Problems ProblemNoted DateDiagnosed DateSpasmodic torticollisDysphagia, unspecified(787.20)MyalgiaDDD (degenerative disc disease), lumbarDDD (degenerative disc disease), cervicalLumbar radiculopathyCervical radiculopathy Carpal tunnel syndromeDystonia musculorum deformansAcid refluxArthritis Family History Medical HistoryRelationCommentsHeartMaternal Aunt 1heart attackDiabetesMaternal Aunt 2CancerMaternal Aunt 3HeartMaternal Uncle 1heart attackDiabetesMaternal Uncle 2CancerMaternal Uncle 3ArthritisMotherCancerMotherHeartPaternal Aunt 1 heart attackDiabetesPaternal Aunt 2CancerPaternal Aunt 3HeartPaternal Uncle 1 heart attackDiabetesPaternal Uncle 2CancerPaternal Uncle 3RelationStatusComments FatherDeceasedMaternal Aunt 1Maternal Aunt 2Maternal Aunt 3Maternal Uncle 1 Maternal Uncle 2Maternal Uncle 3MotherDeceasedPaternal Aunt 1Paternal Aunt 2 Paternal Aunt 3Paternal Uncle 1Paternal Uncle 2Paternal Uncle 3 Social History Tobacco UseTypesPacks/DayYears UsedDateSmoking Tobacco: Every DayCigarettes0.820 Alcohol UseStandard Drinks/WeekCommentsYes5 (1 standard drink = 0.6 oz pure alcohol)Sex and Gender InformationValueDate RecordedSex Assigned at BirthNot on fileLegal JviUiof1012/04/2012 4:09 PM ESTGender IdentityNot on fileSexual OrientationNot on file Last Filed Vital Signs Vital SignReadingTime TakenCommentsBlood Tdarkmpt773/8704 2:17 PM EDT Iblbt714101/23/2014 2:17 PM HZLGvvlciknapc86.7 ??C (98.1 ??F)01/23/2014 2:17 PM EDTRespiratory Rate--Oxygen Spymkqoeow82%12/26/2012 11:09 AM ESTInhaled Oxygen Concentration--Zqrwfq93.6 kg (197 lb 9.6 oz)01/23/2014 2:17 PM QMVFxqney995.3 cm (6' 2.92 )01/23/2014 2:17 PM EDTBody Mass Index24.75001/23/2014 2:17 PM EDT Plan of Treatment Health MaintenanceDue DateLast DoneCommentsAnxiety Ujlcksrkh04/24/1984Depression Parzsxqbz61/24/1984HIV Qqqwyuwrd59/24/1984Hepatitis C Ndgvgokod99/24/1984 DTaP,Tdap,Td Vaccine (1 - Tdap)1985Hepatitis B Vaccine (1 of 3 - 19+ 3- dose series)1985Lipid Ziekwmvhf03/24/2001CT Jpotptcnavra75/24/2011 Cologuard (FIT-DNA)07/16/20114796Jnjipiugkvj73/24/2011Colorectal Cancer Screening 2011Diabetes Djirogyth63/24/2011Fecal Occult Blood2011Prostate Cancer Screening Ohpvupziwe85/24/8884Tzfzqephxicyg40/24/2011Pneumococcal Vaccine: 50+ (1 of 1 - PCV)2016Shingrix Vaccine (1 of 2)2016Covid-19 Vaccine (1 - 2024- season)2025Influenza Vaccine (#1)2025 Insurance Care Teams Team MemberRelationshipSpecialtyStart DateEnd Taina Colindres MD [address] [place] [address] PCP - GeneralFamily Medicine12/04/12
--- OUTSIDE RECORDS SUMMARY | 2025-08-12 12:53 | XMS_ITS | Encounter Summary ---
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 Name Role Phone Slim Mosher MD Primary Care Provider [phone] Encounter Details DateTypeDepartmentCare Team (Latest Contact Info)Zfqnotyfeon42/08/2025Orders Only [facility] [address] [place] [address] Bettina Gordon RN Acute on chronic diastolic heart failure (CMS/HCC) (Primary Dx) Social History Tobacco UseTypesPacks/DayYears UsedDateSmoking Tobacco: FormerCigarettesPassive Smoke Exposure: PastSmokeless Tobacco: NeverAlcohol UseStandard Drinks/Week CommentsYes3 (1 standard drink = 0.6 oz pure alcohol)3 times per week beerUT Safety & EnvironmentAnswerDate RecordedFear of Current or Ex-PartnerNot on file 12/14/2023Emotionally AbusedNot on file12/14/2023hysically AbusedNot on file 12/14/2023Sexually AbusedNot on file4Physically or Sexually AbusedNot on file12/14/2023Sex and Gender InformationValueDate RecordedSex Assigned at BykhgUrin01/01/2025 7:22 AM EDTLegal RtrGzbj1404/20/2022 11:54 PM EDTGender AqprqcxxAoov72/01/2025 7:22 AM EDTSexual OrientationHeterosexual or Straight 07/23/2025 7:22 AM EDTdocumented as of this encounter Nursing Notes * Bettina Gordon RN - 07/30/2025 11:31 AM EDT Patient called for 1 week post A-fib ablation follow up. Dr. Spivey made aware of patients concern of retaining fluids. Patient states he takes Lasix 60mg oral daily PRN but yesterday the dose only made him urinate once after he took the Lasix. Patient reports lower extremity swelling (states he has been watching salt intake). He said his weight is usually 215-217 when he gets up in the AM and around 222 at night. However, his weight is staying at 225-226 now. Patient also reports feeling winded walking from his house to his car and has to sit to catch his breath. Patient also talked to staff from his PCP's office this AM and they suggested that he take the Lasix dose daily for now. Per Dr. Spivey, patient can take the Lasix daily and will need a BMP drawn in 1 week. Patient also to be seen by a Cardiology Nurse Practitioner at [facility]. Lab order faxed to [facility] and appointment scheduled with STANDARDS ANALYST in the cardiology clinic. documented in this encounter Plan of Treatment DateTypeDepartmentCare Team (Latest Contact Info)Rtsmopuffjv07/21/2025 1:40 PM EDTFollow-[facility] [address] [facility] [place] [address] Jessica Rausch CNP [address] [place] [phone] 08/28/2025 9:00 AM ESTFollow-[facility] [address] [facility] [place] [address] Cedric Branham CNP [address] [place] [address] NameTypePriorityAssociated DiagnosesOrder ScheduleBasic metabolic panelLab Routine Acute on chronic diastolic heart failure (CMS/HCC) Expected: 07/30/2025 (Approximate), Expires: 07/30/2026documented as of this encounter Visit Diagnoses Diagnosis Acute on chronic diastolic heart failure (CMS/HCC)- Primary Acute on chronic diastolic heart failure documented in this encounter Care Teams Team MemberRelationshipSpecialtyStart DateEnd Date Slim Mosher MD [address] [place] [address] PCP - GeneralFamily Medicine03/27/2310documented as of this encounter
--- OUTSIDE RECORDS SUMMARY | 2025-08-12 12:53 | XMS_ITS | Clinical Summary ---
Author Organization [facility] Address [address] [place] [address] Care Team Providers Care Quad Stayer Name Role Phone No, Physician Primary Care Provider Unavailabl e Allergies Active AllergyReactionsCriticalityNoted DateCommentsBee Venom Protein (Honey Bee)IazoruagsysSgkz05/11/6676XarzzgzwwkDckvcmm43/11/2025 Medications MedicationSigDispense QuantityRefillsLast FilledStart DateEnd DateStatus temazepam (RESTORIL) 15 mg capsule Take 2 (two) capsules (30 mg total) by mouth nightly as needed for sleep .Active esomeprazole magnesium (NEXIUM ORAL) Take by mouth every morning .Active buPROPion (WELLBUTRIN XL) 300 MG 24 hr tablet Take 1 (one) tablet (300 mg total) by mouth daily .Active febuxostat (ULORIC) 40 mg tablet Take 1 (one) tablet (40 mg total) by mouth daily .Active baclofen (LIORESAL) 20 MG tablet Take 1 (one) tablet (20 mg total) by mouth 4 (four) times a day .Active apixaban (ELIQUIS) 5 mg Tab Take 1 (one) tablet (5 mg total) by mouth 2 (two) times a day . 60 tablet 06/29/2019Active lisinopril (PRINIVIL,ZESTRIL) 2.5 MG tablet Take 1 (one) tablet (2.5 mg total) by mouth daily with lunch Start: 06/30/19. 30 tablet 06/30/2019Active metoprolol succinate (TOPROL-XL) 25 MG 24 hr tablet Take 1 (one) tablet (25 mg total) by mouth daily Start: 06/30/19. 30 tablet 06/30/2019Active furosemide (LASIX) 20 MG tablet Take 1 (one) tablet (20 mg total) by mouth daily as needed (SOB /> 5 pounds weight gain) . 10 tablet 06/29/2019Active potassium chloride (K-DUR) 10 MEQ CR tablet Take 1 (one) tablet (10 mEq total) by mouth daily as needed (WITH LASIX) TAKE POTASSIUM IF YOU TAKELASIX, OTHERWISE HOLD IT . 20 tablet 06/29/2019Active atorvastatin (LIPITOR) 40 MG tablet Take 1 (one) tablet (40 mg total) by mouth nightly . 30 tablet 06/29/2019Active ondansetron (ZOFRAN-ODT) 4 MG disintegrating tablet Indications:NauseaDissolve 1 (one) tablet (4 mg total) on top of tongue every 8 (eight) hours as needed for nausea . 20 tablet 4Active allopurinoL (ZYLOPRIM) 300 MG tablet Take 1 (one) tablet (300 mg total) by mouth daily .Active busPIRone (BUSPAR) 10 MG tablet Take 1 (one) tablet (10 mg total) by mouth 3 (three) times a day .03/07/2025 Active gabapentin (NEURONTIN) 600 MG tablet Take 1 (one) tablet (600 mg total) by mouth 3 (three) times a day .05/27/2025 Active pantoprazole (PROTONIX) 40 MG tablet Take 1 (one) tablet (40 mg total) by mouth every night at bedtime .06/18/2025 Active dofetilide (TIKOSYN) 250 MCG capsule Take 1 (one) capsule (250 mcg total) by mouth every 12 (twelve) hours . 5Active aspirin 81 MG EC tablet Take 1 (one) tablet (81 mg total) by mouth daily Start: 07/05/25. 30 tablet 07/04/2025 2:44 PM EDTExpired Active Problems ProblemNoted DateDiagnosed DateChest pain07/03/2025Renal foowxnk5806/26/2019 Assessment & Plan (06/29/2019 3:54 PM EDT): Possibly embolic. Agree with systemic anticoagulation and hypercoagulable work- up. Can be complete as an outpatient. Patient is at high risk for atrial fibrillation given his severe left atrial enlargement. Recommended 30-day event monitor. If this is negative then consider an implantable loop recorder. We will arrange for 30-day event monitor. Elevated acdxnkmg21/04/2019 Assessment & Plan (06/29/2019 3:53 PM EDT): Trivial elevation, unclear etiology Possibly from renal infarct? D-dimer negative, unlikely pulmonary embolism Suspect related to diastolic dysfunction and decompensated diastolic heart failure. No coronary artery disease based on heart catheterization from 12/2016 only with myocardial bridging segments. Acute pulmonary edema06/26/2019 Assessment & Plan (06/29/2019 4:05 PM EDT): Findings on chest x-ray and CT abdomen suggestive of vascular congestion and heart failure. Previous history of heart failure. Reviewed right left heart catheterization from [facility] in 2016. Diastolic heart failure at that time. Elevated [...] unfortunately his mother's side she is a [place] immigrant and does not know much about her family history. Resolved Problems ProblemNoted DateDiagnosed DateResolved DateShortness of didrhz4506/28/2019 06/29/2019 Assessment & Plan (06/28/2019 2:48 PM EDT): Unexplained shortness of breath Mild pulmonary hypertension Mild elevation of troponin Rule out pulmonary embolism. Given renal infarction, will plan ventilation/perfusion scan. Encounters DateTypeDepartmentCare WzedGkebikdbasx42/12/2025 12:25 PM EDT - 07/04/2025 1:40 PM EDTSur[facility] [address] [place] [address] Terrence Medina MD Coronary Yraqhxdwa36/11/2025 12:06 AM EDT - 07/04/2025 6:54 PM EDTHospital Encounter [facility] [address] [place] [address] [facility] Hospitalists, Generic Prashant Taylor MD Kiza, Thiago Anna, DO Discharge Disposition: Homefrom Last 3 Months Social History Tobacco UseTypesPacks/DayYears UsedDateSmoking Tobacco: FormerCigarettes Smokeless Tobacco: Never Tobacco Cessation:Counseling Given: Not Answered Alcohol UseStandard Drinks/WeekCommentsYes4 (1 standard drink = 0.6 oz pure alcohol)only during events and when he goes out every mondaySELECT [facility]ICAL [facility] UtilitiesAnswer Date RecordedIn the past 12 months has the [employer] gas, oil, or water [employer] threatened to shut off services in your home?No07/03/2025Humiliation, Afraid, Rape, and Kick questionnaireAnswerDate RecordedWithin the last year, have you been afraid of your partner or ex-partner?No07/03/2025Within the last year, have you been humiliated or emotionally abused in other ways by your partner or ex-partner?No07/03/2025Within the last year, have you been kicked, hit, slapped, or otherwise physically hurt by your partner or ex-partner?No07/03/2025Within the last year, have you been raped or forced to have any kind of sexual activity by your partner or ex-partner?No07/03/2025PHQ-2AnswerDate RecordedPHQ-2 Score0 06/27/2019Hunger Vital SignAnswerDate RecordedWithin the past 12 months, you worried that your food would run out before you got the money to buymore.Never true07/03/2025Within the past 12 months, the food you bought just didn't last and you didn't have money to get more.Never true07/03/2025PRAPARE - TransportationAnswerDate RecordedIn the past 12 months, has lack of transportation kept you from medical appointments or from getting medications?No 07/03/2025In the past 12 months, has lack of transportation kept you from meetings, work, or from getting things needed for daily living?No07/03/2025 Housing Stability Vital SignAnswerDate RecordedIn the last 12 months, was there a time when you were not able to pay the mortgage or rent on time?No07/03/2025In the past 12 months, how many times have you moved where you were living?1 07/03/2025t any time in the past 12 months, were you homeless or living in a fci (including now)?No07/03/2025Sex and Gender InformationValueDate Recorded Sex Assigned at BirthNot on fileLegal NpmDmap0803/08/2014 3:14 PM EDTGender VxjlmgdnAgpw94/04/2019 8:32 AM EDTSexual DbjtrfxgipkKzvtgkee16/04/2019 9:16 AM EDT Last Filed Vital Signs Vital SignReadingTime TakenCommentsBlood Qwdoolxw151/8209 4:31 PM EDT Boigt637607/04/2025 4:31 PM QWALacgjsbhzro01.4 ??C (97.5 ??F)07/04/2025 3:24 PM EDTRespiratory Nmsb3057 4:31 PM EDTOxygen Euwvxpkkre15%07/04/2025 3:24 PM EDTInhaled Oxygen Concentration--Yovbag64.8 kg (220 lb)07/03/2025 12:21 AM XKNOphocj061.5 cm (6' 3 )07/03/2025 12:21 AM EDTBody Mass Index27.509 12:21 AM EDT Plan of Treatment DateTypeDepartmentCare Team (Latest Contact Info)Mmdwiamfcax25/23/2025 10:20 AM ESTOffice Visit [facility] [address], 3rd [place] [id number] Day, [place] [address] Health MaintenanceDue DateLast DoneCommentsCT Ifdvcnqkdinu1966Fecal DNA 1966Fecal occult blood test (FOBT,FIT)1966PSA Level1966MMR Vaccines (1 of 1 - Standard series)1967Wellness Visit1969HIV Zxeblevma74/24/1981Hepatitis C Cguxmvnex12/24/1984Tetanus/Diphtheria/Pertussis (1 - Tdap)1985Flexible ngmqnsuqtoxbo34/24/2016Pneumococcal Vaccine: 50+ Years (1 of 1 - PCV)2016Depression Screening/Follow-Up (PHQ-12/01)06/26/2020 06/26/20191943Etxpavdrfrv97/14/202402/Colorectal Cancer Screening/Monitoring 4CLASS III : OFFICE VISIT/OVID-19 Vaccine ( season), 10/21/2021, 01/01/2021, Additional history existsInfluenza Vaccine (#1)06/23/2025LASS III : YMBPJRBOXC66/12/2025 07/04/2025, 07/03/2025, 06/29/2019, Additional history existsCLASS III : CDJMJNCGE28, 07/03/2025, 06/29/2019, Additional history exists Class III: Errpmajmc13/12/98252307/04/2025, 5CLASS III : EKG0307/04/2025, 07/03/2025, 07/03/2025, Additional history existsRSV Vaccines (1 - 1-dose 75+ series)2041Hepatitis B NxkukanwOtdvknwhi77/30/2008, 11/05/2007, 10/04/2007Zoster JoqzdipwIaaaggqei26/04/2024, 01/09/2024HIB VaccinesAged OutNo longer eligible based on patient's age to complete this topicHPV VaccinesAged OutNo longer eligible based on patient's age to complete this topicHepatitis A VaccinesAged OutNo longer eligible based on patient's age to complete this topic IPV VaccinesAged OutNo longer eligible based on patient's age to complete this topicMeningococcal ACWY VaccineAged OutNo longer eligible based on patient's age to complete this topicMeningococcal B VaccineAged OutNo longer eligible based on patient's age to complete this topicRotavirus VaccinesAged OutNo longer eligible based on patient's age to complete this topic Procedures Procedure NamePriorityDate/TimeAssociated DiagnosisCommentsLEFT HEART CATH Bivupcb2407/04/2025 1:59 PM EDT CORONARY KYNRLTACYIIMxpgihu56/12/2025 1:59 PM EDT EKG007/04/2025 11:37 AM EDTCBC WITH AUTO ZNFIQQDMPREJSsjqoau35/12/2025 7:30 AM EDT HNKQBcxlm52/12/2025 7:30 AM EDT CBC AND HCHKAJXTUFOXKpzkmxh21/12/2025 7:30 AM EDT BASIC METABOLIC IUATQLouphpv48/12/2025 7:30 AM EDT MAGNESIUM MTFRAJxnprzt51/12/2025 7:30 AM EDT YGMWTSAMWZFimwqjm69/12/2025 7:30 AM EDT JWSYSgoow69/11/2025 11:42 PM EDT ZPEKTpzfa72/11/2025 5:15 PM EDT ECHOCARDIOGRAM 2D VBPSFTSCZpifihs87/11/2025 8:10 AM EDT XUWCGzyvm03/11/2025 6:29 AM EDT ECG 12-QDYRKYCS09/11/2025 5:09 AM EDT CBC WITH AUTO KMULINNJJKVIWggoqkn42/11/2025 2:41 AM EDT CBC AND QSDUDOMUHOLNBwkiolw85/11/2025 2:41 AM EDT BASIC METABOLIC BWXTSWbwjcww62/11/2025 2:41 AM EDT MAGNESIUM FYBJAGkdttnm49/11/2025 2:41 AM EDT YCSUTTXHKGHfgxkcu56/11/2025 2:41 AM EDT TROPONIN X 2 (NOW AND REPEAT IN 2 HOURS)Timed07/03/2025 2:41 AM EDT ECG 12-UWUFKTHV33/11/2025 1:53 AM EDT QSXZqxuhny83/11/2025 12:58 AM EDT HEMOGLOBIN X7HJybldyf90/11/2025 12:58 AM EDT LIPID DRFPLXIZD93/11/2025 12:58 AM EDT TROPONIN X 2 (NOW AND REPEAT IN 2 HOURS)STAT07/03/2025 12:58 AM EDT from Last 3 Months Results * CORONARY ANGIOGRAPHY, LEFT HEART CATH (07/04/2025 1:59 PM EDT)Specimen (Source)Anatomical Location / LateralityCollection Method / VolumeCollection TimeReceived Time Narrative FUJI SYNAPSE CV - 07/04/2025 2:00 PM EDT Impression: Non obstructive coronary artery disease Normal left heart filling pressures Recommendations: Continue medical therapy Follow-up with primary care physician Evaluate for non-cardiac etiologies Coronary Findings Diagnostic Dominance: Right Left Main: The vessel was visualized by angiography and is angiographically normal. Left Anterior Descending: The vessel was visualized by angiography and is angiographically normal. Left Circumflex: The vessel was visualized by angiography and is angiographically normal. Right Coronary Artery: The vessel was visualized by angiography and is angiographically normal. Intervention No interventions have been documented. Left Ventricle LV systolic pressure is normal. LV end diastolic pressure is normal. Authorizing ProviderResult TypeResult StatusCordelia Jade Roberto CNPCV CARDIAC CATH ORDERABLESFinal ResultPerforming OrganizationAddressCity/State/ZIP Code Phone Number GLENYSI BREANNE CV * EKG (07/04/2025 11:37 AM EDT)Specimen (Source)Anatomical Location / Laterality Collection Method / VolumeCollection TimeReceived Time Narrative Authorizing ProviderResult TypeResult StatusGeneric [facility] HospitalistsSCANNED ORDERSFinal Result * (ABNORMAL) APTT Heparin Coverage (07/04/2025 7:30 AM EDT) Only the most recent of4 resultswithin the time period is included. ComponentValueRef RangeTest MethodAnalysis TimePerformed AtPathologist Signature APTT92(H)23 - 34 idbewzz8207/04/2025 8:35 AM EDTMH LABSpecimen (Source)Anatomical Location / LateralityCollection Method / VolumeCollection TimeReceived TimeBlood BLOOD SPECIMEN / UnknownVenipuncture / Phgvdct4507/04/2025 7:30 AM EDT07/04/2025 7:51 AM EDT Narrative LAB - 07/04/2025 8:35 AM EDT Therapeutic range for APTT's is 68 - 104 seconds Authorizing ProviderResult TypeResult StatusPrashant BOTELLO BLOOD ORDERABLES Final ResultPerforming OrganizationAddressCity/State/ZIP CodePhone Number LAB [address] [place] [address] * (ABNORMAL) CBC Auto Differential (07/04/2025 7:30 AM EDT) Only the most recent of2 resultswithin the time period is included. ComponentValueRef RangeTest MethodAnalysis TimePerformed AtPathologist Signature WBC6.004.50 - 11.00 K/mcL07/04/2025 7:55 AM EDTMH LABRBC3.97(L)4.50 - 5.90 M/mcL 07/04/2025 7:55 AM EDTMH SPZXelvxsanny13.113.5 - 17.5 g/dL07/04/2025 7:55 AM EDT BHJBaibhapyuq46.341.0 - 53.0 %07/04/2025 7:55 AM EDTMH URNMGV163.5(H)80.0 - 100.0 fL07/04/2025 7:55 AM EDTM PZZICP03.5(H)26.0 - 34.0 pg07/04/2025 7:55 AM [facility] AUEDDWG51.331.0 - 37.0 g/dL07/04/2025 7:55 AM EDTM LBYAhgtuhcnu550687 - 400 K/[facility]07/04/2025 7:55 AM EDTM LABRDW - CV12.411.6 - 14.8 %07/04/2025 7:55 AM EDTM YIFWTC55.79.4 - 12.4 fL07/04/2025 7:55 AM EDTM ENPXecfxfqxjvk82.8% 07/04/2025 7:55 AM EDTM WKWSyuobplqnfb84.0%07/04/2025 7:55 AM EDTM LAB Monocytes6.7%07/04/2025 7:55 AM EDTM LABEosinophils1.8%07/04/2025 7:55 AM [facility] LABBasophils0.5%07/04/2025 7:55 AM EDTM LABIG Percent0.20%07/04/2025 7:55 AM [facility]AT[facility] LABComment:The IG parameter is the percentage of metamyelocytes, myelocytes and promyelocytes. An immature granulocyte count (IG) of 1% or more suggests the possibility of infection, an IG count of 3% is very likely related to an infection.Neutrophils Abs3.351.70 - 7.00 K/[facility]07/04/2025 7:55 AM EDTM LAB Lymphocytes Abs2.100.90 - 4.00 K/[facility]07/04/2025 7:55 AM EDTM LABMonocytes Abs 0.400.30 - 0.90 K/[facility]07/04/2025 7:55 AM EDTM LABEosinophils Abs0.110.00 - 0.50 K/[facility]07/04/2025 7:55 AM EDTM LABBasophils Abs0.030.00 - 0.30 K/[facility]07/04/2025 7:55 AM EDTM LABIG Absolute0.010.00 - 0.30 K/mcL07/04/2025 7:55 AM [facility] LAB Nucleated RBC0.0%07/04/2025 7:55 AM [facility] LABNucleated RBC Abs0.000.00 - 0.00 K/mcL07/04/2025 7:55 AM [facility]AT[facility] LABSpecimen (Source)Anatomical Location / LateralityCollection Method / VolumeCollection TimeReceived TimeBloodBLOOD SPECIMEN / UnknownVenipuncture / Cdbmtlf9807/04/2025 7:30 AM EDT07/04/2025 7:51 AM EDT Narrative Authorizing ProviderResult TypeResult StatusEric Wilfrido CASTAÑEDA BLOOD ORDERABLESFinal ResultPerforming OrganizationAddressCity/State/ZIP CodePhone Number LAB [address] [place] [address] * Phosphorus (07/04/2025 7:30 AM EDT) Only the most recent of2 resultswithin the time period is included. ComponentValueRef RangeTest MethodAnalysis TimePerformed AtPathologist Signature Phosphorus3.02.7 - 4.5 mg/dL07/04/2025 8:27 AM [facility]AT[facility] LABSpecimen (Source) Anatomical Location / LateralityCollection Method / VolumeCollection Time Received TimeBloodBLOOD SPECIMEN / UnknownVenipuncture / Kdsazhv5207/04/2025 7:30 AM EDT07/04/2025 7:51 AM EDT Narrative Authorizing ProviderResult TypeResult StatusEric Wilfrido CASTAÑEDA BLOOD ORDERABLESFinal ResultPerforming OrganizationAddressty/State/ZIP CodePhone Number LAB [address] [place] [address] * Magnesium Level (07/04/2025 7:30 AM EDT) Only the most recent of2 resultswithin the time period is included. ComponentValueRef RangeTest MethodAnalysis TimePerformed AtPathologist Signature Magnesium1.81.6 - 2.4 mg/dL07/04/2025 8:27 AM [facility]AT[facility] LABSpecimen (Source) Anatomical Location / LateralityCollection Method / VolumeCollection Time Received TimeBloodBLOOD SPECIMEN / UnknownVenipuncture / Lwdohmv5007/04/2025 7:30 AM EDT07/04/2025 7:51 AM EDT Narrative Authorizing ProviderResult TypeResult StatusEric Wilfrido CASTAÑEDA BLOOD ORDERABLESFinal ResultPerforming OrganizationAddressCity/State/ZIP CodePhone Number LAB [address] [place] [address] * (ABNORMAL) Basic Metabolic Panel (07/04/2025 7:30 AM EDT) Only the most recent of2 resultswithin the time period is included. ComponentValueRef RangeTest MethodAnalysis TimePerformed AtPathologist Signature Yyiyod129161 - 145 mmol/L07/04/2025 8:27 AM EDTMH LABPotassium3.93.5 - 5.1 mmol/L07/04/2025 8:27 AM EDTMH HKYZeeunybq10576 - 108 mmol/L07/04/2025 8:27 AM EDTMH GIUGwayiegyrvg1734 - 32 mmol/L07/04/2025 8:27 AM EDTMH LABAnion Uqn7987 - 20 mmol/L07/04/2025 8:27 AM EDTMH SLPJbiymxu213(H)65 - 99 mg/dL07/04/2025 8:27 AM EDTMH YKZYVQ330 - 25 mg/dL07/04/2025 8:27 AM EDTMH LABCreatinine0.950.50 - 1.30 mg/dL07/04/2025 8:27 AM EDTMH FSRgQJB03>=60 mL/min/1.73 m207/04/2025 8:27 AM EDTMH LABComment:Estimated GFR was calculated using the 2020 CKD-EPI creatinine equation.BUN/Creatinine Ratio10.510.0 - 20.009 8:27 AM EDTMH LABCalcium9.28.4 - 10.2 mg/dL07/04/2025 8:27 AM EDTMH LABSpecimen (Source) Anatomical Location / LateralityCollection Method / VolumeCollection Time Received TimeBloodBLOOD SPECIMEN / UnknownVenipuncture / Mbkmgct8807/04/2025 7:30 AM EDT07/04/2025 7:51 AM EDT Narrative LAB - 07/04/2025 8:27 AM EDT [facility] Services has implemented the eGFR calculation approach that does not have a coefficient for race that conforms to the NKF-ASN Task Force Recommendations. Authorizing ProviderResult TypeResult StatusThiago CASTAÑEDA BLOOD ORDERABLESFinal ResultPerforming OrganizationAddressCity/State/ZIP CodePhone Number LAB [address] [place] [address] * Echocardiogram complete w contrast (07/03/2025 8:10 AM EDT)ComponentValueRef RangeTest MethodAnalysis TimePerformed AtPathologist SignatureEF 52.3868225462031%[employer] CVAortic valve area3.24536275550441hp?[employer] CVAV peak gradient3.330661070598rlKnPQKC SYNAPSE CVAV mean gradient 1.6100617598482qqKaHFTU SYNAPSE CVSpecimen (Source)Anatomical Location / LateralityCollection Method / VolumeCollection TimeReceived Time07/03/2025 7:31 AM EDT Narrative [facility] CV - 07/03/2025 9:40 AM EDT Summary ??1. This study was technically limited, Definity IV contrast was used to enhance endocardial definition. ??2. LV is enlarged with mild LVH and segmental wall motion abnormalities as outlined below. ??LVEF 50-55%. ??3. RV is enlarged with normal RV function. ??4. No significant valvular heart disease is present. ??5. There is borderline pulmonary hypertension, estimated right ventricle systolic pressure is 38 mmHg. ??6. The aortic root is dilated measuring 4.1 cm with an index of 1.8 cm/m2. ??7. No atrial level shunt with saline contrast with free breathing or Valsalva. Ordering Physician: ? Thiago Bob Referring Physician: ? Rajan Gallegos Outer Diameter Grinder Tool: ? Jennifer Grace RDCS, RVT Attending Physician: ? Generic [facility] Hospitalists Patient Info Site Location: ? Exam Location: ? [facility] Name: ? Syed Howard Age: ? 59 years : ? 1965 Gender: ? Male Accession #: ? [id number] Ht: ? 191 cm Wt: ? 100 kg BSA: ? 2.31 m2 HR: ? 63 bpm BP: ? 126 / ? 82 mmHg Heart Rhythm: ? Sinus Rhythm Technical Quality: ? Fair, Technically difficult Exam Date: ? 07/03/2025 7:31 AM Patient Status: ? INPATIENT Exam Type: ? ECHOCARDIOGRAM COMPLETE W CONTRAST Study Info Indications ?R07.9 - Chest pain, ??unspecified [id number] BMI: ? 27.50 kg/m2 History/Risk Factors Chest Pain: ? Yes Congestive Heart Failure (CHF): ? Hx CHF Tobacco Use: ? Former Cerebrovascular Disease: ? CVA Atrial Fibrillation: ? Yes History/Risk Factors ??elevated troponin, GERD. Procedure(s): ??Complete two-dimensional, color flow and Doppler transthoracic echocardiogram is performed with contrast. Definity explained to patient. Patient verbalizes understanding and agrees to proceed. Definity 1.3ml/8.7ml normal sterile saline 2.0 ml total given IV over 30-60 seconds. 9ml Saline agitated with 1ml air, injected IV push per Lab Protocol. Left Ventricle ??LV is enlarged with mild LVH and segmental wall motion abnormalities as outlined below. ??LVEF 50-55%. Indeterminate diastolic function. The basal inferolateral wall, and mid inferolateral wall are akinetic. All other domingo appear normal. Left ventricular segmental wall motion is abnormal. The left ventricular diastolic function is indeterminate. Right Ventricle ??RV is enlarged with normal RV function. Left Atria ??Left atrial chamber is severely enlarged with a left atrial volume index of 56 ml/m2 by BP MOD. Right Atria ??Right atrial chamber dimension is enlarged. Atrial Septum ??No atrial level shunt with saline contrast with free breathing or Valsalva. Aortic Valve ??The aortic valve is trileaflet. There is no aortic valve sclerosis. There is no aortic valve stenosis. There is no aortic valve regurgitation. Pulmonic Valve ??The pulmonic valve is normal. There is no pulmonic valve stenosis. There is trace pulmonic regurgitation. Mitral Valve ??The mitral valve has normal leaflets. There is no mitral valve stenosis. There is no mitral valve regurgitation. Tricuspid Valve ??The tricuspid valve leaflets are normal. There is no significant tricuspid valve stenosis. There is trace tricuspid valve regurgitation. There is borderline pulmonary hypertension, estimated right ventricle systolic pressure is 38 mmHg. Pericardium/Pleural ??There is no pericardial effusion. Inferior Vena Cava ??Inferior vena cava is not well visualized. Aorta ??The aortic measurements are indexed to age and body surface area. The aortic root is dilated measuring 4.1 cm with an index of 1.8 cm/m2. The proximal ascending aorta is normal measuring 3.7 cm with an index of 1.6 cm/m2. Left Ventricular Outflow Tract Name ? Value ?Normal LVOT 2D LVOT Diameter ? 2.1 cm ? LVOT Ejection Time ?317 ms ? LVOT Doppler LVOT Peak Velocity ? 1.0 m/s ? LVOT Peak Gradient ?4 mmHg ? LVOT Mean Gradient ?2 mmHg ? LVOT VTI ? 20 cm ? LVOT VTI/AV VTI Ratio ?1.0 ? LVOT Stroke Volume ? 70 ml ? LVOT Stroke Index ? 30.44 ml/m2 Pulmonic Valve Name ? Value ?Normal RVOT Doppler RVOT Peak Velocity ? 56 cm/s ? RVOT Peak Gradient ?1 mmHg ? RVOT Mean Gradient ?1 mmHg ? RVOT VTI ? 16 cm ? PV Doppler PV Peak Velocity ?0.56 m/s ? PV Peak Gradient ?1 mmHg ? PV Mean Gradient ?1 mmHg ? PV VTI ? 12 cm ? PV Regurgitation Doppler MD Peak Gradient ?7 mmHg ? MD Peak End Diastolic Velocity ?133 cm/s Mitral Valve Name ? Value ?Normal MV Doppler MV Peak Velocity ?0.57 m/s ? MV Peak Gradient ?1 mmHg ? MV Mean Gradient ?0 mmHg ? MV VTI ? 15 cm ? MV Decel [place] ? 401 cm/s2 ? MV PHT ? 39 ms ? MV Area (PHT) ?5.7 cm2 ? 4.0-5.0 MV Area (Cont Eq VTI) ?4.6 cm2 ? MV Area Index (Cont Eq VTI) ? 2.00 cm2/m2 ? MV DVI ?0.75 ? MV Diastolic Function MV E Peak Velocity ?0.54 m/s ? MV A Peak Velocity ?0.22 m/s ? MV E/A ? 2.4 ? MV Decel Time ? 134 ms ? MV Annular TDI MV Septal e' Velocity ? 4.8 cm/s ? MV E/e' (Septal) ?11.1 ? MV Lateral e' Velocity 6.8 cm/s >=9.5 MV E/e' (Lateral) ?7.9 ? MV e' Average ?5.80 cm/s ? MV E/e' (Average) 9.5 <=13.5 Tricuspid Valve Name ? Value ?Normal TV Regurgitation Doppler TR Peak Velocity 2.73 m/s <=2.80 TR Peak Gradient ? 30 mmHg ? Estimated PAP/RSVP RA Pressure 8 mmHg <=5 PA Systolic Pressure 38 mmHg <=36 RV Systolic Pressure 38 mmHg <36 TV Annular TDI RV s' Velocity 0.1 m/s >=0.1 Aorta Name ? Value ?Normal Ascending Aorta Ao Root Diameter (2D) ? 4.1 cm ? 3.1-3.7 Ao Root Diam Index (2D) ?1.8 cm/m2 ? 1.5-1.9 Prox Asc Ao Diameter ?3.7 cm ? 2.6-3.4 Prox Asc Ao Diameter Index ? 1.6 cm/m2 ? 1.3-1.7 Aortic Valve Name ? Value ?Normal AV Doppler AV Peak Velocity ? 0.9 m/s ? AV Peak Gradient ?4 mmHg ? AV Mean Gradient ?2 mmHg ? AV VTI ? 20 cm ? AV Area (Cont Eq VTI) ?3.5 cm2 ? AV Area Index (Cont Eq VTI) ? 2 cm2/m2 ? AV Area (Cont Eq Adryan) ?3.7 cm2 ? AV Area Index (Cont Eq Adrayn) ? 2 cm2/m2 ? LVOT Vmax/AV Vmax ? 1.07 ? LVOT VTI/AV VTI Ratio ?1.0 ? AV Regurgitation 2D LVOT Area ?3.5 cm2 Ventricles Name ? Value ?Normal LV Dimensions 2D/MM IVS Diastolic Thickness (2D) ?1.1 cm ? 0.6-1.0 LVID Diastole (2D) ?6.1 cm ? 4.2-5.8 LVIW Diastolic Thickness (2D) ?1.2 cm ? 0.6-1.0 LVID Systole (2D) ? 4.5 cm ? 2.5-4.0 LVOT Diameter ? 2.1 cm ? LV Mass (2D Cubed) ?303.94 g ??88.00-224.00 LV Mass Index (2D Cubed) ?132 g/m2 ?49-115 Relative Wall Thickness (2D) 0.38 <=0.42 LV Fractional Shortening/Ejection Fraction 2D/MM LV Fractional Shortening (2D) ?26 % ? 25-43 LV EF (2D Teichholz) ?50 % ? LV Diastolic Volume (4C MOD) ?139 ml ? LV Systolic Volume (4C MOD) ?73 ml ? LV EF (4C MOD) ?48 % ? LV Diastolic Volume (2C MOD) ?151 ml ? LV Systolic Volume (2C MOD) ?71 ml ? LV EF (2C MOD) ?53 % ? LV Diastolic Volume (BP MOD) ?153 ml ?62-150 LV Diastolic Volume Index (BP MOD) ?66 ml/m2 ? 34-74 LV Systolic Volume (BP MOD) ?72 ml ? 21-61 LV Systolic Volume Index (BP MOD) ?31 ml/m2 ? 11-31 LV EF (BP MOD) ?53 % ? 52-72 LV Diastolic Length (4C) ?7.5 cm ? LV Systolic Length (4C) ? 6.6 cm ? LV Stroke Volume (4C MOD) ?67 ml ? LV Stroke Index (4C MOD) ?28.81 ml/m2 ? RV Dimensions 2D/MM RVID Diastole (2D) 4.4 cm <3.5 RV Diastolic Length (4C) ?6.8 cm ? 5.9-8.3 RV Basal Diastolic Dimension ? 4.4 cm ? 2.5-4.1 RV Mid-Cavity Diastolic Dimension ? 2.6 cm ? 1.9-3.5 TAPSE 2.9 cm >=1.7 RV Systolic Function RV s' Velocity 0.13 m/s >=0.10 Diastology TR Peak Velocity 2.73 m/s <=2.80 MV Septal e' Velocity ? 4.8 cm/s ? LA Volume Index (BP A-L) ?60 ml/m2 ? 16-34 LA Volume Index (2C MOD) ?56 ml/m2 ? LA Volume Index (4C MOD) ?56 ml/m2 ? LA Volume Index (BP MOD) ?56 ml/m2 ? 16-34 MV Lateral e' Velocity 6.8 cm/s >=9.5 MV E/e' (Average) 9.5 <=13.5 MV E/A ? 2.4 ? MV E/e' (Lateral) ?7.9 ? MV E/e' (Septal) ?11.1 ? MV e' Average ?5.80 cm/s Atria Name ? Value ?Normal LA Dimensions LA Area (4C) ?34.8 cm2 ? LA Volume (4C MOD) ?129 ml ? LA Volume (2C MOD) ?129 ml ? LA Volume (2C A-L) ?136 ml ? LA Volume (BP A-L) ?139 ml ? LA Volume Index (BP A-L) ?60 ml/m2 ? 16-34 LA Volume (BP MOD) ?131 ml ? LA Volume Index (BP MOD) ?56 ml/m2 ? 16-34 RA Dimensions RA Systolic [place] Length (4C) ? 6.6 cm ? 2.1-2.7 RA Area (4C) 27.8 cm2 <=18.0 RA Area (4C) Index ? 12 cm2/m2 ? RA ESV (4C MOD) ?98 ml ? RA ESV Index (4C MOD) ? 43 ml/m2 ? Report Signatures Finalized by Taina Mireles ?? on 07/03/2025 09:40 AM Procedure Note Taina Mireles MD - 07/03/2025 Summary 1. This study was technically limited, Definity IV contrast was usedto enhance endocardial definition. 2. LV is enlarged with mild LVH and segmental wall motion abnormalitiesas outlined below. LVEF 50-55%. 3. RV is enlarged with normal RV function. 4. No significant valvular heart disease is present. 5. There is borderline pulmonary hypertension, estimated rightventricle systolic pressure is 38 mmHg. 6. The aortic root is dilated measuring 4.1 cm with an index of 1.8cm/m2. 7. No atrial level shunt with saline contrast with free breathing or Valsalva. Ordering Physician: Thiago Bob Referring Physician: Rajan Gallegos Outer Diameter Grinder Tool: Jennifer Grace RDCS, RVT Attending Physician: [facility] Patient Info Site Location: Exam Location: [facility] Name: Syed Howard Age: 59 years : 1965 Gender: Male Ht: 191 cm Wt: 100 kg BSA: 2.31 m2 HR: 63 bpm BP: 126 / 82 mmHg Heart Rhythm: Sinus Rhythm Technical Quality: Fair, Technically difficult Exam Date: 07/03/2025 7:31 AM Patient Status: INPATIENT Exam Type: ECHOCARDIOGRAM COMPLETE W CONTRAST Study Info Indications R07.9 - Chest pain, unspecified [id number] BMI: 27.50 kg/m2 History/Risk Factors Chest Pain: Yes Congestive Heart Failure (CHF): Hx CHF Tobacco Use: Former Cerebrovascular Disease: CVA Atrial Fibrillation: Yes History/Risk Factors elevated troponin, GERD. Procedure(s): Complete two-dimensional, color flow and Doppler transthoracic echocardiogram is performed with contrast. Definity explained topatient. Patient verbalizes understanding and agrees to proceed. Definity1.3ml/8.7ml normal sterile saline 2.0 ml total given IV over 30-60 seconds. 9mlSaline agitated with 1ml air, injected IV push per Lab Protocol. Left Ventricle LV is enlarged with mild LVH and segmental wall motion abnormalitiesas outlined below. LVEF 50-55%. Indeterminate diastolic function. Thebasal inferolateral wall, and mid inferolateral wall are akinetic. All otherwalls appear normal. Left ventricular segmental wall motion is abnormal. Theleft ventricular diastolic function is indeterminate. Right Ventricle RV is enlarged with normal RV function. Left Atria Left atrial chamber is severely enlarged with a left atrial volume indexof 56 ml/m2 by BP MOD. Right Atria Right atrial chamber dimension is enlarged. Atrial Septum No atrial level shunt with saline contrast with free breathing orValsalva. Aortic Valve The aortic valve is trileaflet. There is no aortic valve sclerosis.There is no aortic valve stenosis. There is no aortic valve regurgitation. Pulmonic Valve The pulmonic valve is normal. There is no pulmonic valve stenosis. Thereis trace pulmonic regurgitation. Mitral Valve The mitral valve has normal leaflets. There is no mitral valvestenosis. There is no mitral valve regurgitation. Tricuspid Valve The tricuspid valve leaflets are normal. There is no significanttricuspid valve stenosis. There is trace tricuspid valve regurgitation. There is borderline pulmonary hypertension, estimated right ventricle systolicpressure is 38 mmHg. Pericardium/Pleural There is no pericardial effusion. Inferior Vena Cava Inferior vena cava is not well visualized. Aorta The aortic measurements are indexed to age and body surface area. Theaortic root is dilated measuring 4.1 cm with an index of 1.8 cm/m2. Theproximal ascending aorta is normal measuring 3.7 cm with an index of 1.6 cm/m2. Left Ventricular Outflow Tract Name Value Normal LVOT 2D LVOT Diameter 2.1 cm LVOT Ejection Time 317 ms LVOT Doppler LVOT Peak Velocity 1.0 m/s LVOT Peak Gradient 4 mmHg LVOT Mean Gradient 2 mmHg LVOT VTI 20 cm LVOT VTI/AV VTI Ratio 1.0 LVOT Stroke Volume 70 ml LVOT Stroke Index 30.44 ml/m2 Pulmonic Valve Name Value Normal RVOT Doppler RVOT Peak Velocity 56 cm/s RVOT Peak Gradient 1 mmHg RVOT Mean Gradient 1 mmHg RVOT VTI 16 cm PV Doppler PV Peak Velocity 0.56 m/s PV Peak Gradient 1 mmHg PV Mean Gradient 1 mmHg PV VTI 12 cm PV Regurgitation Doppler MD Peak Gradient 7 mmHg MD Peak End Diastolic Velocity 133 cm/s Mitral Valve Name Value Normal MV Doppler MV Peak Velocity 0.57 m/s MV Peak Gradient 1 mmHg MV Mean Gradient 0 mmHg MV VTI 15 cm MV Decel [place] 401 cm/s2 MV PHT 39 ms MV Area (PHT) 5.7 cm2 4.0-5.0 MV Area (Cont Eq VTI) 4.6 cm2 MV Area Index (Cont Eq VTI) 2.00 cm2/m2 MV DVI 0.75 MV Diastolic Function MV E Peak Velocity 0.54 m/s MV A Peak Velocity 0.22 m/s MV E/A 2.4 MV Decel Time 134 ms MV Annular TDI MV Septal e' Velocity 4.8 cm/s MV E/e' (Septal) 11.1 MV Lateral e' Velocity 6.8 cm/s >=9.5 MV E/e' (Lateral) 7.9 MV e' Average 5.80 cm/s MV E/e' (Average) 9.5 <=13.5 Tricuspid Valve Name Value Normal TV Regurgitation Doppler TR Peak Velocity 2.73 m/s <=2.80 TR Peak Gradient 30 mmHg Estimated PAP/RSVP RA Pressure 8 mmHg <=5 PA Systolic Pressure 38 mmHg <=36 RV Systolic Pressure 38 mmHg <36 TV Annular TDI RV s' Velocity 0.1 m/s >=0.1 Aorta Name Value Normal Ascending Aorta Ao Root Diameter (2D) 4.1 cm 3.1-3.7 Ao Root Diam Index (2D) 1.8 cm/m2 1.5-1.9 Prox Asc Ao Diameter 3.7 cm 2.6-3.4 Prox Asc Ao Diameter Index 1.6 cm/m2 1.3-1.7 Aortic Valve Name Value Normal AV Doppler AV Peak Velocity 0.9 m/s AV Peak Gradient 4 mmHg AV Mean Gradient 2 mmHg AV VTI 20 cm AV Area (Cont Eq VTI) 3.5 cm2 AV Area Index (Cont Eq VTI) 2 cm2/m2 AV Area (Cont Eq Adryan) 3.7 cm2 AV Area Index (Cont Eq Adryan) 2 cm2/m2 LVOT Vmax/AV Vmax 1.07 LVOT VTI/AV VTI Ratio 1.0 AV Regurgitation 2D LVOT Area 3.5 cm2 Ventricles Name Value Normal LV Dimensions 2D/MM IVS Diastolic Thickness (2D) 1.1 cm 0.6-1.0 LVID Diastole (2D) 6.1 cm 4.2-5.8 LVIW Diastolic Thickness (2D) 1.2 cm 0.6-1.0 LVID Systole (2D) 4.5 cm 2.5-4.0 LVOT Diameter 2.1 cm LV Mass (2D Cubed) 303.94 g 88.00-224.00 LV Mass Index (2D Cubed) 132 g/m2 49-115 Relative Wall Thickness (2D) 0.38 <=0.42 LV Fractional Shortening/Ejection Fraction 2D/MM LV Fractional Shortening (2D) 26 % 25-43 LV EF (2D Teichholz) 50 % LV Diastolic Volume (4C MOD) 139 ml LV Systolic Volume (4C MOD) 73 ml LV EF (4C MOD) 48 % LV Diastolic Volume (2C MOD) 151 ml LV Systolic Volume (2C MOD) 71 ml LV EF (2C MOD) 53 % LV Diastolic Volume (BP MOD) 153 ml 62-150 LV Diastolic Volume Index (BP MOD) 66 ml/m2 34-74 LV Systolic Volume (BP MOD) 72 ml 21-61 LV Systolic Volume Index (BP MOD) 31 ml/m2 11-31 LV EF (BP MOD) 53 % 52-72 LV Diastolic Length (4C) 7.5 cm LV Systolic Length (4C) 6.6 cm LV Stroke Volume (4C MOD) 67 ml LV Stroke Index (4C MOD) 28.81 ml/m2 RV Dimensions 2D/MM RVID Diastole (2D) 4.4 cm <3.5 RV Diastolic Length (4C) 6.8 cm 5.9-8.3 RV Basal Diastolic Dimension 4.4 cm 2.5-4.1 RV Mid-Cavity Diastolic Dimension 2.6 cm 1.9-3.5 TAPSE 2.9 cm >=1.7 RV Systolic Function RV s' Velocity 0.13 m/s >=0.10 Diastology TR Peak Velocity 2.73 m/s <=2.80 MV Septal e' Velocity 4.8 cm/s LA Volume Index (BP A-L) 60 ml/m2 16-34 LA Volume Index (2C MOD) 56 ml/m2 LA Volume Index (4C MOD) 56 ml/m2 LA Volume Index (BP MOD) 56 ml/m2 16-34 MV Lateral e' Velocity 6.8 cm/s >=9.5 MV E/e' (Average) 9.5 <=13.5 MV E/A 2.4 MV E/e' (Lateral) 7.9 MV E/e' (Septal) 11.1 MV e' Average 5.80 cm/s Atria Name Value Normal LA Dimensions LA Area (4C) 34.8 cm2 LA Volume (4C MOD) 129 ml LA Volume (2C MOD) 129 ml LA Volume (2C A-L) 136 ml LA Volume (BP A-L) 139 ml LA Volume Index (BP A-L) 60 ml/m2 16-34 LA Volume (BP MOD) 131 ml LA Volume Index (BP MOD) 56 ml/m2 16-34 RA Dimensions RA Systolic [place] Length (4C) 6.6 cm 2.1-2.7 RA Area (4C) 27.8 cm2 <=18.0 RA Area (4C) Index 12 cm2/m2 RA ESV (4C MOD) 98 ml 18-32 RA ESV Index (4C MOD) 43 ml/m2 18-32 Report Signatures Finalized by Taina Mireles MD on 07/03/2025 09:40 AM Authorizing ProviderResult TypeResult StatusEric Wilfrido DAMON [place] ORDERABLESFinal ResultPerforming OrganizationAddressCity/State/ZIP CodePhone Number FUJI SYNAPSE CV * ECG 12 Lead NOW (07/03/2025 5:09 AM EDT) Only the most recent of2 resultswithin the time period is included. ComponentValueRef RangeTest MethodAnalysis TimePerformed AtPathologist Signature Ventricular Ocwc45YAHRASXSkxvio Tcrs69BGQSAUET-S Krvzsnnn989mhHPSPLVG Duration 110msMUSEQ-T Brvepvoo312rcMYYLSUX Calculation (Bezet)462msMUSEP Llyb32losbwln MUSER [place]-21degreesMUSET Zlkb01bktjuqrZBCLMgrovnkd (Source)Anatomical Location / LateralityCollection Method / VolumeCollection TimeReceived Time07/03/2025 5:09 AM EDT07/03/2025 2:12 PM EDT Narrative MUSE - 07/03/2025 2:12 PM EDT Sinus rhythm with 1st degree AV block Minimal voltage criteria for LVH, may be normal variant Nonspecific ST and T wave abnormality Prolonged QT Abnormal ECG Confirmed by Taina Mireles MD ([id number]) on 07/03/2025 2:12:28 PM Authorizing ProviderResult TypeResult StatusEric Wilfrido Bob DOECG ORDERABLESFinal ResultPerforming OrganizationAddressCity/State/ZIP CodePhone Number MUSE * (ABNORMAL) Troponin x 2 (Now and Repeat in 2 Hours) (07/03/2025 2:41 AM EDT) Only the most recent of2 resultswithin the time period is included. ComponentValueRef RangeTest MethodAnalysis TimePerformed AtPathologist Signature Troponin T32(HH)<=22 ng/L07/03/2025 3:39 AM EDTMH LABInterp Troponin T Delta ChangeDelta troponin requires at least 2 hours between collections.07/03/2025 3:39 AM EDTMH LABSpecimen (Source)Anatomical Location / LateralityCollection Method / VolumeCollection TimeReceived TimeBloodBLOOD SPECIMEN / Unknown Venipuncture / Jejrcig5007/03/2025 2:41 AM EDT07/03/2025 2:46 AM EDT Narrative Authorizing ProviderResult TypeResult StatusEric Wilfrido Bob DOLAB BLOOD ORDERABLESFinal ResultPerforming OrganizationAddressCity/State/ZIP CodePhone Number LAB [address] [place] [phone] * (ABNORMAL) CBC (07/03/2025 12:58 AM EDT)ComponentValueRef RangeTest Method Analysis TimePerformed AtPathologist SignatureWBC6.104.50 - 11.00 K/mcL 07/03/2025 1:08 [facility] LABRBC4.00(L)4.50 - 5.90 M/mcL07/03/2025 1:08 AM EDT LGCJrudetyems94.213.5 - 17.5 g/dL07/03/2025 1:08 AM [facility] XPSApokqycdre89.8 41.0 - 53.0 %07/03/2025 1:08 AM EDTM YFENYF966.5(H)80.0 - 100.0 fL07/03/2025 1:08 AM EDTM GCHIBI42.5(H)26.0 - 34.0 pg07/03/2025 1:08 [facility] GUVHLLC93.0 31.0 - 37.0 g/dL07/03/2025 1:08 AM [facility] ZDLVhnufqdoz531624 - 400 K/[facility] 07/03/2025 1:08 AM [facility] LABRDW - CV12.511.6 - 14.8 %07/03/2025 1:08 AM [facility] GQZERH73.69.4 - 12.4 fL07/03/2025 1:08 AM EDTM LABNucleated RBC0.0%07/03/2025 1:08 AM [facility] LABNucleated RBC Abs0.000.00 - 0.00 K/[facility]07/03/2025 1:08 AM EDT LABSpecimen (Source)Anatomical Location / LateralityCollection Method / VolumeCollection TimeReceived TimeBloodBLOOD SPECIMEN / UnknownVenipuncture / Mjbnwce8407/03/2025 12:58 AM EDT07/03/2025 1:03 AM EDT Narrative Authorizing ProviderResult TypeResult StatusEric Tamelaelsagianna [employer]ke [email or web address] BLOOD ORDERABLESFinal ResultPerforming OrganizationAddressCity/State/ZIP CodePhone Number LAB [address] [place] [address] * Hemoglobin A1c (07/03/2025 12:58 AM EDT)ComponentValueRef RangeTest Method Analysis TimePerformed AtPathologist SignatureHemoglobin A1C5.04.2 - 5.6 % 07/03/2025 2:12 AM EDTM LABEstimated Average Ubifnhn7829 - 114 mg/dL 07/03/2025 2:12 AM [facility] LABComment:Specimen (Source)Anatomical Location / LateralityCollection Method / VolumeCollection TimeReceived TimeBloodBLOOD SPECIMEN / UnknownVenipuncture / Ubytmda2907/03/2025 12:58 AM EDT07/03/2025 1:03 AM EDT Narrative Authorizing ProviderResult TypeResult StatusEric Brittza Kiza DOLAB BLOOD ORDERABLESFinal ResultPerforming OrganizationAddressCity/State/ZIP CodePhone Number LAB [address] [place] [address] * (ABNORMAL) Lipid Panel (07/03/2025 12:58 AM EDT)ComponentValueRef RangeTest MethodAnalysis TimePerformed AtPathologist AdvhrcgeaQhzoilmfqka322403 - 199 mg/dL07/03/2025 1:40 AM [facility] LABComment: National Cholesterol Education Program Guidelines: Cholesterol Desirable: <200 mg/dL Borderline High: ?200-239 mg/dL High: ? greater than or equal to 240 mg/dL Ogcqfetzbdqcl160(H)30 - 150 mg/dL07/03/2025 1:40 AM [facility] LABComment: National Cholesterol Education Program Guidelines: ??Triglyceride Normal: <150 mg/dL Borderline High: ?150-199 mg/dL High: ? 200-499 mg/dL Very High: ?greater than or equal to 500 mg/dL ABA4421 - 59 mg/dL07/03/2025 1:40 AM [facility] LABComment: National Cholesterol Education Program Guidelines: HDL Cholesterol Low: <40 mg/dL Near Optimal: ?40-59 mg/dL High: ?greater than or equal to 60 mg/dL Chol/HDL Ratio2.3vwcmx4607/03/2025 1:40 AM [facility] LABComment: Males Cholesterol/HDL Ratio: Average risk: ? 5.0 1/2 average risk: ?? 3.4 2 x average risk: ?? 9.6 LDL Icvwryanwr5645 - 130 mg/dL07/03/2025 1:40 AM [facility] LABComment: National Cholesterol Education Program Guidelines: LDL Cholesterol Optimal: <100 mg/dL Near Optimal/above Optimal: ?100-129 mg/dL Borderline High: ? 130-159 mg/dL High: ?160-189 mg/dL Very High: ? greater than or equal to 190 mg/dL Non HDL Ndynhopdpbm96gp/dL07/03/2025 1:40 AM EDH LABComment: National Cholesterol Education Program Guidelines: NON HDL Cholesterol Desirable: <130 mg/dL Borderline High: ? 130-159 mg/dL High: ?160-189 mg/dL Very High: > or = 190 mg/dL Specimen (Source)Anatomical Location / LateralityCollection Method / Volume Collection TimeReceived TimeBloodBLOOD SPECIMEN / UnknownVenipuncture / Unknown 07/03/2025 12:58 AM EDT07/03/2025 1:03 AM EDT Narrative Authorizing ProviderResult TypeResult StatusEric Wilfrido CASTAÑEDA BLOOD ORDERABLESFinal ResultPerforming OrganizationAddressCity/State/ZIP CodePhone Number LAB [address] [facility] [place] [place] [address] from Last 3 Months Insurance Advance Directives For more information, please contact: [phone] * Full Code (Latest Code Status on File) Date ActivatedDate InactivatedComments07/04/2025 1:56 PM07/04/2025 9:05 PM * Full Code Date ActivatedDate InactivatedComments07/03/2025 12:30 AM07/04/2025 1:56 PM * Full Code Date ActivatedDate InactivatedComments06/26/2019 1:45 PM07/03/2025 12:06 AM Care Teams Team MemberRelationshipSpecialtyStart DateEnd Date No, Physician [facility] PCP - General07/03/25
--- OUTSIDE RECORDS SUMMARY | 2025-08-12 12:53 | XMS_ITS | Continuity of Care Document ---
Author Organization [facility], Teresa benoit. Address [address] [place] [id number] Phone [phone] Care Team Providers Care Automobile Service Writer Name Role Phone Taina Colindres Care Team Information Metaphysics Teacher + [phone] Assessments Date Code Description Provider 06/28/2019 N28.0 Ischemia and infarction of k augustinaney Don Hunter MD 06/28/2019 E87.6 Hypokalemia Tish Wilson 06/28/2019 I50.9 Heart failure, unspecified S ankur Hunter MD 06/28/2019 R74.8 Abnormal levels of other ser um enzymes Don Hunter MD
--- OUTSIDE RECORDS SUMMARY | 2025-08-12 12:53 | XMS_ITS | Patient Health Record ---
Author Organization [facility] Address [address] [place] [address] Care Team Providers Care Health Teacher Name Role Phone Flaco Molinaie Primary Care Provider [phone] Reason For Referral No Information Problems Problem Type SNOMED Code ICD Code Onset Dates Problem Status W/U Status Risk Notes Problem Acute stress disorder (47938656) Acute st ress disorder (F43.0) Activeconfirmed Plan Of Treatment No Information Insurance Providers Payer Name Payer Address Payer Phone Subscriber Number Group Number Insured Name Patient Relationship to Insured Coverage Start Date Coverage End Date [employer] [address] [place] [address] [id number] SHELLI MILLIGAN Self - patient is the insured 3
--- OUTSIDE RECORDS SUMMARY | 2025-08-12 12:54 | XMS_ITS | Clinical Summary ---
Author Organization [facility] Address [address] [place] [address] Phone Care Team Providers Care Nitrate Operator Name Role Phone Nelida Stock APRN-SINGER SONGWRITER Primary Care Provider [phone] Allergies Active AllergyReactionsCriticalityNoted DateCommentsBee Venom Protein (Honey Bee)Bwhdyoe0109/05/20238416MxugyiwbtoJoxjk41/13/2013 Sleepiness Pollen MovdgocuYbofkfl66/14/2023 Medications MedicationSigDispense QuantityRefillsLast FilledStart DateEnd DateStatus traMADol (Ultram) 50 mg tablet Take 1 tablet (50 mg) by mouth 2 times a day as needed.Active temazepam (Restoril) 30 mg capsule Take 1 capsule (30 mg) by mouth as needed at bedtime for sleep.Active baclofen (Lioresal) 20 mg tablet Take 2 tablets (40 mg) by mouth once daily at bedtime.Active buPROPion XL (Wellbutrin XL) 300 mg 24 hr tablet Take 1 tablet (300 mg) by mouth once daily in the morning. 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 Do not start before September 13, 2023. 60 tablet ctive atorvastatin (Lipitor) 40 mg tablet Indications:Status post CVATake 1 tablet (40 mg) by mouth once daily. No fill hx 30 tablet 10/12/2023ctive tadalafil (Cialis) 20 mg tablet Take 1 tablet (20 mg) by mouth once daily.Active pantoprazole (ProtoNix) 40 mg EC tablet Take 1 tablet (40 mg) by mouth early in the morning..5Active metoprolol succinate XL (Toprol-XL) 25 mg 24 hr tablet Take 1 tablet (25 mg) by mouth once daily.5Active dofetilide (Tikosyn) 250 mcg capsule Take 1 capsule (250 mcg) by mouth every 12 hours.Active busPIRone (Buspar) 10 mg tablet Take 1 tablet (10 mg) by mouth 3 times a day.Active allopurinol (Zyloprim) 300 mg tablet Take 1 tablet (300 mg) by mouth once daily.Active gabapentin (Neurontin) 600 mg tablet Indications: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 (Multi),Thalamic pain syndromeTAKE 1 TABLET BY MOUTH THREE TIMES A DAY 90 tablet 5Active gabapentin (Neurontin) 600 mg tablet Indications: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 (Multi),Thalamic pain syndromeTAKE 1 TABLET BY MOUTH THREE TIMES A DAY 90 tablet Discontinued Active Problems ProblemNoted DateDiagnosed DateCerebrovascular accident (CVA)09/20/2023 Impairment of nbyzrxq1909/20/2023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 09/04/2023 Resolved Problems ProblemNoted DateDiagnosed DateResolved DateTIA (transient ischemic attack) /Status post CVA1/ Encounters DateTypeDepartmentCare SxxzOgmtyrnqwqe47/04/2025Refill [facility] [address] [facility] [address] [place] [id number] Terell Enriquez MD 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 (Multi); Thalamic pain vjsyncxn59/10/2025 3:11 PM EDT - 07/02/2025 11:22 PM EDTEmergency [facility] [address] [place] [address] Rajan Gallegos, NSTEMI (non-ST elevated myocardial infarction) (Multi) (Primary Dx) Discharge Disposition: Short Term Acute Eknzpgln42/10/3881Fksfod41/03/2025Refill [facility] [address] [facility] [address] [place] [phone] Terell Enriquez MD 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 (Multi); Thalamic pain syndromefrom Last 3 Months Immunizations ImmunizationAdministration DatesNext DueHepatitis B vaccine, adult *Check Product/Dose*03/21/2008,11/05/2007,10/04/2007Pfizer COVID-19 vaccine, bivalent, age 12 years and older (30 mcg/0.3 mL)07/18/2022 Social History Tobacco UseTypesPacks/DayYears UsedDateSmoking Tobacco: FormerCigarettesQuit: 2018Smokeless Tobacco: Never Tobacco Cessation:Counseling Given: Not Answered Alcohol UseStandard Drinks/WeekCommentsYes0 (1 standard drink = 0.6 oz pure alcohol)beer dailyAUDIT-CAnswerDate RecordedQ1: How often do you have a drink containing alcohol?Patient jmtdytuh56/20/2023Q2: How many drinks containing alcohol do you have on a typical day when you are drinking?Patient declined 10/11/2023Q3: How often do you have six or more drinks on one occasion?Patient myxgadqj25/20/2023Overall Financial Resource Strain (CARDIA)AnswerDate Recorded How hard is it for you to pay for the very basics like food, housing, medical care, and heating?Not hard at all3PHQ-2AnswerDate RecordedPatient Health Questionnaire-2 Tuiwg602/20/2023PRAPARE - TransportationAnswerDate RecordedIn the past 12 months, has lack of transportation kept you from medical appointments or from getting medications?No10/12/2023In the past 12 months, has lack of transportation kept you from meetings, work, or from getting things needed for daily living?No10/12/2023Housing Stability Vital SignAnswerDate RecordedIn the last 12 months, was there a time when you were not able to pay the mortgage or rent on time?No10/12/2023In the last 12 months, how many places have you lived?In the last 12 months, was there a time when you did not have a steady place to sleep or slept in ashelter (including now)?No 10/12/2023Sex and Gender InformationValueDate RecordedSex Assigned at BirthNot on fileLegal ZriJnfx97/25/2022 1:29 PM ESTGender IdentityNot on fileSexual OrientationNot on file Last Filed Vital Signs Vital SignReadingTime TakenCommentsBlood Wpxemlcs347/8109 11:00 PM EDT Gtlcr643707/02/2025 11:00 PM GJKMkjbtzzmawg70.6 ??C (97.9 ??F)07/02/2025 3:24 PM EDTRespiratory Arqz946807/02/2025 11:00 PM EDTOxygen Ucfqpoluhq11%07/02/2025 11:00 PM EDTInhaled Oxygen Concentration--Opbzzt50.8 kg (220 lb)07/02/2025 3:24 PM EDT Xucwre263.5 cm (6' 3 )07/02/2025 3:24 PM EDTBody Mass Index27.509 3:24 PM EDT Plan of Treatment Health MaintenanceDue DateLast DoneCommentsCT Vvrprjsmpuab1966FIT-DNA (Cologuard)1966FIT1966HIV Qfjckvcia93/24/1067Oooczkwqflhao1966 Yearly Adult Xbwepzto1966MMR Vaccines (1 of 1 - Standard series)1967 Hepatitis C Xkivihaib80/24/1984Pneumococcal Vaccine (1 of 2 - PCV)1985 DTaP/Tdap/Td Vaccines (1 - Tdap)1988PSA Prostate Cancer Screening 07/16/20166448Kwsulqcnxem33/14/202402/Colorectal Cancer Axsrujoyr94/14/2024 Opiwrdhyrofdqn08/19/202506/, 10/12/2023, 09/05/2023Influenza Vaccine (#1) 5COVID-19 Vaccine (2 - season)09/01/reatinine Level/07/2025, 09/11/2024, 10/11/2023, Additional history exists Diabetes Khbeesloy16, 09/11/2024, 10/12/2023, Additional history existsPotassium Level, 09/11/2024, 10/11/2023, Additional history existsLipid Panel, 09/04/2023Hepatitis B DbieblwxObrnkmgex49/30/2008, 11/05/2007, 10/04/2007Zoster VaccinesCompleted 03/26/2024, 01/09/2024HIB VaccinesAged OutNo longer eligible based on patient's age to complete this topicHPV VaccinesAged OutNo longer eligible based on patient's age to complete this topicHepatitis A VaccinesAged OutNo longer eligible based on patient's age to complete this topicIPV VaccinesAged OutNo longer eligible based on patient's age to complete this topicMeningococcal VaccineAged OutNo longer eligible based on patient's age to complete this topic Rotavirus VaccinesAged OutNo longer eligible based on patient's age to complete this topic Procedures Procedure NamePriorityDate/TimeAssociated DiagnosisCommentsSERIAL TROPONIN, 1 DBFGNPYN78/10/2025 4:34 PM EDT ECG 12-CJTLPFNW16/10/2025 4:15 PM EDT SERIAL TROPONIN-ZSYPGJVYBCF66/10/2025 3:37 PM EDT PROTIME-DCYXIDA7507/02/2025 3:37 PM EDT TROPONIN SERIES- (INITIAL, 1 HR)STAT07/02/2025 3:37 PM EDT COMPREHENSIVE METABOLIC ZWMMHMZMD08/10/2025 3:37 PM EDT CBC WITH AUTO QNCMLJDCBTFFHHLH23/10/2025 3:37 PM EDT XR CHEST 1 LCZBGBFC56/10/2025 3:32 PM EDT ECG 12-JHZZESCD84/10/2025 3:20 PM EDT QMLRJTCHIUUKBL06/19/2024 LIPID RJMIKTMLM60/20/2023 5:24 PM EST from Last 3 Months or Most Recently Relevant to Health Maintenance Results * (ABNORMAL) Troponin, High Sensitivity, 1 Hour (07/02/2025 4:34 PM EDT) ComponentValueRef RangeTest MethodAnalysis TimePerformed AtPathologist SignatureTroponin I, High Bqvrhbsccgv77(HH)0 - 20 ng/L LAB IMMUNOASSAY METHOD 07/02/2025 5:[address] [facility] [place] LABComment:Previous result verified on 07/02/2025 1559 on specimen/case [id number] called with component RUST for procedure Troponin I, High Sensitivity, Initial with value 89 ng/L.Specimen (Source)Anatomical Location / LateralityCollection Method / VolumeCollection TimeReceived TimeBloodVenous blood specimen / Unknown Venipuncture / Oackolb5707/02/2025 4:34 PM EDT07/02/2025 4:43 PM EDT [facility] - 07/02/2025 5:24 PM EDT Less than 99th percentile of normal range cutoff- Female and children under 18 years old <14 ng/L; Male <21 ng/L: Negative Repeat testing should be performed if clinically indicated. Female and children under 18 years old 14-50 ng/L; Male 21-50 ng/L: Consistent with possible cardiac damage and possible increased clinical risk. Serial measurements may help to assess extent of myocardial damage. >50 ng/L: Consistent with cardiac damage, increased clinical risk and myocardial infarction. Serial measurements may help assess extent of myocardial damage. NOTE: Children less than 1 year old may have higher baseline troponin levels and results should be interpreted in conjunction with the overall clinical context. NOTE: Troponin I testing is performed using a different testing methodology at [facility] than at other [facility]. Direct result comparisons should only be made within the same method. Authorizing ProviderResult TypeResult StatusRajan Gallegos [facility] BLOOD ORDERABLESFinal ResultPerforming OrganizationAddressCity/State/ZIP CodePhone Number [facility] [address] [place] [address] * ECG 12 lead (07/02/2025 4:15 PM EDT) Only the most recent of2 resultswithin the time period is included. ComponentValueRef RangeTest MethodAnalysis TimePerformed AtPathologist Signature Ventricular Mgog05ZGJSXUSXpurlu Ajyi97XDBKKOQQG Vamrybxm660lgCQTBJUQ Sizyuywr175 msMUSEQT Ftpittrg918cbPODKEOP Calculation(Bazett)494msMUSEP Bdza50febbsjgXQNKP Morton-36degreesMUSET Mllj29clcxzqxGHCUGHQ Vwsmo86vicexINCTT Vflnr717vzSMKFV Onset 114msMUSEP Kxntrx328gbKNOKF Gtjdqt987pxCXBWJVW Jrrpbrwslu363orEDHVAucyxwlv (Source)Anatomical Location / LateralityCollection Method / VolumeCollection TimeReceived Time07/02/2025 4:10 PM EDT07/03/2025 6:06 PM EDT Narrative MUSE - 07/03/2025 6:06 PM EDT Normal sinus rhythm Left axis deviation Incomplete right bundle branch block Nonspecific ST and T wave abnormality QTcB >= 480 msec Abnormal ECG When compared with ECG of 02-JUL-2025 15:15, (unconfirmed) Nonspecific T wave abnormality no longer evident in Lateral leads See ED provider note for full interpretation and clinical correlation Confirmed by Estephanie Gomez ([id number]) on 07/03/2025 6:06:16 PM Procedure Note Estephanie Gomez PA-C - 07/03/2025 Normal sinus rhythm Left axis deviation Incomplete right bundle branch block Nonspecific ST and T wave abnormality QTcB >= 480 msec Abnormal ECG When compared with ECG of 02-JUL-2025 15:15, (unconfirmed) Nonspecific T wave abnormality no longer evident in Lateral leads See ED provider note for full interpretation and clinical correlation Confirmed by Estephanie Gomez ([id number]) on 07/03/2025 6:06:16 PM Authorizing ProviderResult TypeResult StatusCameron Becca Gallegos DOECG ORDERABLES Final ResultPerforming OrganizationAddressCity/State/ZIP CodePhone Number MUSE * (ABNORMAL) CBC with Differential (07/02/2025 3:37 PM EDT)ComponentValueRef RangeTest MethodAnalysis TimePerformed AtPathologist SignatureWBC6.24.4 - 11.3 x10*3/uL LAB HEMATOLOGY METHOD 07/02/2025 3:[address] [facility] [place] LABnRBC0.00.0 - 0.0 /100 WBCs LAB HEMATOLOGY METHOD 07/02/2025 3:[address] [facility] [place] LABRBC4.09(L)4.50 - 5.90 x10*6/uL LAB HEMATOLOGY METHOD 07/02/2025 3:[address] [facility] [place] CVSEywtrwovqt70.513.5 - 17.5 g/dL LAB HEMATOLOGY METHOD 07/02/2025 3:[address] [facility] [place] YLSZmdkrkixiv40.041.0 - 52.0 % LAB HEMATOLOGY METHOD 07/02/2025 3:[address] [facility] [place] NUFZUK463(H)80 - 100 fL LAB HEMATOLOGY METHOD 07/02/2025 3:[address] [facility] [place] AROHOK82.5(H)26.0 - 34.0 pg LAB HEMATOLOGY METHOD 07/02/2025 3:[address] [facility] [place] WLJZZRN39.532.0 - 36.0 g/dL LAB HEMATOLOGY METHOD 07/02/2025 3:[address] [facility] [place] MIHGFS65.211.5 - 14.5 % LAB HEMATOLOGY METHOD 07/02/2025 3:[address] [facility] [place] LGQVtykfhyae054358 - 450 x10*3/uL LAB HEMATOLOGY METHOD 07/02/2025 3:[address] [facility] [place] LABNeutrophils %68.040.0 - 80.0 % LAB HEMATOLOGY METHOD 07/02/2025 3:[address] [facility] [place] LABImmature Granulocytes %, Automated0.30.0 - 0.9 % LAB HEMATOLOGY METHOD 07/02/2025 3:[address] [facility] [place] LABComment:Immature Granulocyte Count (IG) includes promyelocytes, myelocytes and metamyelocytes but does not i nclude bands. Percent differential counts (%) should be interpreted in the context of the absolute cell counts (cells/UL).Lymphocytes %23.213.0 - 44.0 % LAB HEMATOLOGY METHOD 07/02/2025 3:[address] [facility] [place] LABMonocytes %7.72.0 - 10.0 % LAB HEMATOLOGY METHOD 07/02/2025 3:[address] [facility] [place] LABEosinophils %0.50.0 - 6.0 % LAB HEMATOLOGY METHOD 07/02/2025 3:[address] [facility] [place] LABBasophils %0.30.0 - 2.0 % LAB HEMATOLOGY METHOD 07/02/2025 3:[address] [facility] [place] LABNeutrophils Absolute4.231.20 - 7.70 x10*3/uL LAB HEMATOLOGY METHOD 07/02/2025 3:[address] [facility] [place] LABComment:Percent differential counts (%) should be interpreted in the context of the absolute cell counts (ce lls/uL).Immature Granulocytes Absolute, Automated0.020.00 - 0.70 x10*3/uL LAB HEMATOLOGY METHOD 07/02/2025 3:[address] [facility] [place] LABLymphocytes Absolute1.441.20 - 4.80 x10*3/uL LAB HEMATOLOGY METHOD 07/02/2025 3:[address] [facility] [place] LABMonocytes Absolute0.480.10 - 1.00 x10*3/uL LAB HEMATOLOGY METHOD 07/02/2025 3:[address] [facility] [place] LABEosinophils Absolute0.030.00 - 0.70 x10*3/uL LAB HEMATOLOGY METHOD 07/02/2025 3:[address] [facility] [place] LABBasophils Absolute0.020.00 - 0.10 x10*3/uL LAB HEMATOLOGY METHOD 07/02/2025 3:[address] [facility] [place] LABSpecimen (Source)Anatomical Location / LateralityCollection Method / VolumeCollection TimeReceived TimeBlood Venous blood specimen / UnknownVenipuncture / Iujexyo3907/02/2025 3:37 PM EDT 07/02/2025 3:37 PM EDT Narrative Authorizing ProviderResult TypeResult StatusCameron D Lemantonio DOLAB BLOOD ORDERABLESFinal ResultPerforming OrganizationAddressCity/State/ZIP CodePhone Number [facility] [address] [place] [address] * (ABNORMAL) Troponin I, High Sensitivity, Initial (07/02/2025 3:37 PM EDT) ComponentValueRef RangeTest MethodAnalysis TimePerformed AtPathologist SignatureTroponin I, High Jwbfxeilhtz96(HH)0 - 20 ng/L LAB IMMUNOASSAY METHOD 07/02/2025 3:59 PM [facility] LABSpecimen (Source)Anatomical Location / LateralityCollection Method / VolumeCollection TimeReceived TimeBlood Venous blood specimen / UnknownVenipuncture / Bosmykb1307/02/2025 3:37 PM EDT 07/02/2025 3:37 PM EDT Narrative [facility] - 07/02/2025 3:59 PM EDT Less than 99th percentile of normal range cutoff- Female and children under 18 years old <14 ng/L; Male <21 ng/L: Negative Repeat testing should be performed if clinically indicated. Female and children under 18 years old 14-50 ng/L; Male 21-50 ng/L: Consistent with possible cardiac damage and possible increased clinical risk. Serial measurements may help to assess extent of myocardial damage. >50 ng/L: Consistent with cardiac damage, increased clinical risk and myocardial infarction. Serial measurements may help assess extent of myocardial damage. NOTE: Children less than 1 year old may have higher baseline troponin levels and results should be interpreted in conjunction with the overall clinical context. NOTE: Troponin I testing is performed using a different testing methodology at [facility] than at other [facility]. Direct result comparisons should only be made within the same method. Authorizing ProviderResult TypeResult StatusCameron Becca El DOL[facility] BLOOD ORDERABLESFinal ResultPerforming OrganizationAddressCity/State/ZIP CodePhone Number [facility] [address] [place] [address] * (ABNORMAL) Protime-INR (07/02/2025 3:37 PM EDT)ComponentValueRef RangeTest MethodAnalysis TimePerformed AtPathologist CkhvlgxrmDejjaxf31.8(H)9.8 - 12.4 seconds LAB COAGULATION METHOD 07/02/2025 3:[address] [facility] [place] LABINR1.3(H)0.9 - 1.1 LAB COAGULATION METHOD 07/02/2025 3:[address] [facility] [place] LABSpecimen (Source)Anatomical Location / LateralityCollection Method / VolumeCollection TimeReceived TimeBlood Venous blood specimen / UnknownVenipuncture / Wntiybv1407/02/2025 3:37 PM EDT 07/02/2025 3:37 PM EDT Narrative Authorizing ProviderResult TypeResult StatusCamerokonrad Gallegos [facility] BLOOD ORDERABLESFinal ResultPerforming OrganizationAddressCity/State/ZIP CodePhone Number [facility] [address] [place] [address] * (ABNORMAL) Comprehensive Metabolic Panel (07/02/2025 3:37 PM EDT)Component ValueRef RangeTest MethodAnalysis TimePerformed AtPathologist SignatureGlucose 9774 - 99 mg/dL LAB CHEMISTRY METHOD 07/02/2025 3:[address] [facility] [place] APCOtoulq657351 - 145 mmol/L LAB CHEMISTRY METHOD 07/02/2025 3:[address] [facility] [place] LABPotassium4.13.5 - 5.3 mmol/L LAB CHEMISTRY METHOD 07/02/2025 3:[address] [facility] LCWGpyoytpu12876 - 107 mmol/L LAB CHEMISTRY METHOD 07/02/2025 3:[address] [facility] EBLOwmuwbwhqxu8857 - 32 mmol/L LAB CHEMISTRY METHOD 07/02/2025 3:[address] [facility] [place] LABAnion Voi4628 - 20 mmol/L LAB CHEMISTRY METHOD 07/02/2025 3:[address] [facility] [place] LABUrea Uzpszmfj590 - 23 mg/dL LAB CHEMISTRY METHOD 07/02/2025 3:[address] [facility] [place] LABCreatinine0.950.50 - 1.30 mg/dL LAB CHEMISTRY METHOD 07/02/2025 3:[address] [facility] [place] LABeGFR>90>60 mL/min/1.73m*2 LAB CHEMISTRY METHOD 07/02/2025 3:[address] [facility] [place] LABComment: Calculations of estimated GFR are performed using the 2020 CKD-EPI Study Refit equation without therace variable for the IDMS-Traceable creatinine methods. https://jasn.asnjournals.org/content//ASN.7073413779 Calcium9.08.6 - 10.3 mg/dL LAB CHEMISTRY METHOD 07/02/2025 3:[address] [facility] [place] LABAlbumin4.13.4 - 5.0 g/dL LAB CHEMISTRY METHOD 07/02/2025 3:[address] [facility] [place] LABAlkaline Afkjqtqayxd7986 - 120 U/L LAB CHEMISTRY METHOD 07/02/2025 3:[address] [facility] [place] LABTotal Protein6.0(L)6.4 - 8.2 g/dL LAB CHEMISTRY METHOD 07/02/2025 3:[address] [facility] XFIUWX96(H)9 - 39 U/L LAB CHEMISTRY METHOD 07/02/2025 3:[address] [facility] [place] LABBilirubin, Total1.00.0 - 1.2 mg/dL LAB CHEMISTRY METHOD 07/02/2025 3:[address] [facility] EDRINP9074 - 52 U/L LAB CHEMISTRY METHOD 07/02/2025 3:[address] [facility] [place] LABComment:Patients treated with Sulfasalazine may generate falsely decreased results for ALT.Specimen (Source) Anatomical Location / LateralityCollection Method / VolumeCollection Time Received TimeBloodVenous blood specimen / UnknownVenipuncture / Unknown 07/02/2025 3:37 PM EDT07/02/2025 3:37 PM EDT Narrative Authorizing ProviderResult TypeResult StatusCamdallin SARMIENTOAB BLOOD ORDERABLESFinal ResultPerforming OrganizationAddressCity/State/ZIP CodePhone Number [facility] [address] [place] [address] * XR chest 1 view (07/02/2025 3:32 PM EDT)Anatomical RegionLateralityModality Thoracic, ChestComputed RadiographySpecimen (Source)Anatomical Location / LateralityCollection Method / VolumeCollection TimeReceived Time07/02/2025 3:57 PM EDT07/02/2025 3:57 PM EDT Impressions 07/02/2025 3:56 PM EDT 1. No evidence of acute cardiopulmonary process. ? MACRO: None ?? Signed by: Fidel Trevino 07/02/2025 3:56 PM Dictation workstation: ?? [id number] Narrative 07/02/2025 3:56 PM EDT Interpreted By: Fidel Trevino, STUDY: XR CHEST 1 VIEW; ??07/02/2025 3:32 pm ?? INDICATION: Signs/Symptoms:chest pain. ? COMPARISON: 09/04/2023 ?? ACCESSION NUMBER(S): [id number] ?? ORDERING CLINICIAN: RAJAN GALLEGOS ?? FINDINGS: ? CARDIOMEDIASTINAL SILHOUETTE: Cardiomediastinal silhouette is mildly enlarged. ?? LUNGS: Lungs are clear. ?? ABDOMEN: No remarkable upper abdominal findings. ?? BONES: No acute osseous changes. Prior ACDF partially visualized. ?? Procedure Note Fidel Trevino MD - 07/02/2025 Interpreted By: Fidel Trevino, STUDY: XR CHEST 1 VIEW; 07/02/2025 3:32 pm INDICATION: Signs/Symptoms:chest pain. COMPARISON: 09/04/2023 ACCESSION NUMBER(S): [id number] ORDERING CLINICIAN: RAJAN GALLEGOS FINDINGS: CARDIOMEDIASTINAL SILHOUETTE: Cardiomediastinal silhouette is mildly enlarged. LUNGS: Lungs are clear. ABDOMEN: No remarkable upper abdominal findings. BONES: No acute osseous changes. Prior ACDF partially visualized. IMPRESSION: 1. No evidence of acute cardiopulmonary process. MACRO: None Signed by: Fidel Trevino 07/02/2025 3:56 PM Dictation workstation: [id number] Authorizing ProviderResult TypeResult StatusCamerokonrad Gallegos [facility] XR PROCEDURESFinal Result * Echocardiogram (04/10/2024) Narrative 04/10/2024 Ordered by an unspecified provider. Authorizing ProviderResult TypeResult StatusGeneric Provider ScanningCV ECHO PROCEDURESFinal Result * Lipid Panel (10/11/2023 5:24 PM EST)ComponentValueRef RangeTest MethodAnalysis TimePerformed AtPathologist YmtelxamhMqlzetfjugg5769 - 199 mg/dL LAB CHEMISTRY METHOD 10/12/2023 12:18 [facility] LABComment: ?Age ?Desirable ?? Borderline High ?? High 0-19 Y 0 - 169 170 - 199 >/= 200 20-24 Y 0 - 189 190 - 224 >/= 225 >24 Y 0 - 199 200 - 239 >/= 240 All ranges are based on fasting samples. Specific therapeutic targets will vary based on patient-specific cardiac risk. Pediatric guidelines reference:Pediatrics 2011, 128(S5).Adult guidelines reference: NCEP ATPIII Guidelines,JOHN 2001, 258:2486-97 Venipuncture immediately after or during the administration of Metamizole may lead to falsely low results. Testing should be performed immediately prior to Metamizole dosing. HDL-Bslahrohqfv11.0mg/dL LAB CHEMISTRY METHOD 10/12/2023 12:18 [facility] LABComment: Age ? Very Low ?? Low ? Normal ?High ?? 0-19 Y < 35 < 40 40-45 ---- 20-24 Y ---- < 40 >45 ---- >24 Y ---- < 40 40-60 >60 Cholesterol/HDL Ratio1.9 LAB CHEMISTRY METHOD 10/12/2023 12:18 [facility] LABComment: Ref Values Desirable < 3.4 High Risk > 5.0 LDL Xcbcsmdqtt08<=99 mg/dL LAB CHEMISTRY METHOD 10/12/2023 12:18 [facility] LABComment: ?Near ?? Borderline ?AGE ?Desirable ??Optimal ?High ? High ? Very High 0-19 Y 0 - 109 --- 110-129 >/= 130 ---- 20-24 Y 0 - 119 --- 120-159 >/= 160 ---- >24 Y 0 - 99 100-129 130-159 160-189 >/=190 LRRN310 - 40 mg/dL LAB CHEMISTRY METHOD 10/12/2023 12:18 [facility] PNAAczfijukmrmja1860 - 149 mg/dL LAB CHEMISTRY METHOD 10/12/2023 12:18 [facility] LABComment: Age ? Desirable ?? Borderline High ?? High ? Very High 0 D-90 D ?19 - 174 ? ---- ? ---- ?---- 91 D- 9 Y 0 - 74 75 - 99 >/= 100 ---- 10-19 Y 0 - 89 90 - 129 >/= 130 ---- 20-24 Y 0 - 114 115 - 149 >/= 150 ---- >24 Y 0 - 149 150 - 199 200- 499 >/= 500 Venipuncture immediately after or during the administration of Metamizole may lead to falsely low results. Testing should be performed immediately prior to Metamizole dosing. Non HDL Tqknytkqieo534 - 149 mg/dL LAB CHEMISTRY METHOD 10/12/2023 12:18 [facility]Comment: ?Age ? Desirable ?? Borderline High ?? High ? Very High 0-19 Y 0 - 119 120 - 144 >/= 145 >/= 160 20-24 Y 0 - 149 150 - 189 >/= 190 ---- >24 Y 30 mg/dL above LDL Cholesterol goal Specimen (Source)Anatomical Location / LateralityCollection Method / Volume Collection TimeReceived TimeBloodVenous blood specimen / UnknownVenipuncture / Vxxucnd0010/11/2023 5:24 PM EST10/11/2023 5:28 PM EST Narrative Authorizing ProviderResult TypeResult StatusJeff Aguilera DOLAB BLOOD ORDERABLESFinal ResultPerforming OrganizationAddressCity/State/ZIP CodePhone Number [facility] [address] [place] [address] from Last 3 Months or Most Recently Relevant to Health Maintenance Insurance * Guarantor: Syed Howard Yonathan TypeRelation to PatientDate of BirthPhone Billing AddressPersonal/[address] [place] [address] * Guarantor: LeeSyed Yonathan TypeRelation to PatientDate of BirthPhone Billing AddressPersonal/[address] [place] [address] MemberSubscriberPlan / Payer (Effective 2019-Present)Name:Syed Howard Konrad Relation to Subscriber:SelfName:Syed Howard Konrad Payer ID:Not on file Type:Not on file Address: [address] [place] [id number] Advance Directives For more information, please contact: [phone] (Available ) * Full Code (Latest Code Status on File) Date ActivatedDate NnscfhgwlwjAvbnhriz20/20/2023 8:24 PMQuestionAnswerComments Plan of Care:* Code Status Discussion Not Completed Decision Maker:* Provider Rationale:* Patient condition does not warrant discussion * Full Code Date ActivatedDate LxyewvdupeqWfdxbsad00/13/2023 7:07 PM09/06/2023 3:29 PM QuestionAnswerCommentsPlan of Care:* Code Status Discussion Completed Decision Maker:* Proxy Care Teams Team MemberRelationshipSpecialtyStart DateEnd Date Nelida Stock, CHIEF DEPUTY CORONER-SINGER SONGWRITER Didi [place] [facility] [place] [address] PCP - Mkewxye62/20/23
--- OUTSIDE RECORDS SUMMARY | 2025-08-12 12:54 | XMS_ITS | Clinical Summary ---
Author Organization [facility] Address [address] [place] [address] Care Team Providers Care Bit Tapper Name Role Phone Nelida Stock LIVE TRUCK OPERATOR Unavailable ToiGiovana turner Unavailable [phone] Allergies Active AllergyReactionsCriticalityNoted DateCommentsBee OeglpEgxfbko94/14/2023 ColchicineOther,Wfdfztx5510/04/2013 Sleepiness Sleepiness Medications MedicationSigDispense QuantityRefillsLast FilledStart DateEnd DateStatus allopurinol (Zyloprim) 300 MG tablet Take 300 mg by mouth DailyActive apixaban (Eliquis) 5 MG tablet Twice daily09/13/2023ctive Aspirin Low Dose 81 MG EC tablet Take 81 mg by mouth Daily10/17/2023ctive atorvastatin (Lipitor) 80 MG tablet Every djacubm4404/12/2024ctive buPROPion SR (Wellbutrin SR) 150 MG 12 hr tablet Take 150 mg by mouth DailyActive dofetilide (Tikosyn) 250 MCG capsule TAKE 1 CAPSULE (250 MCG) BY MOUTH IN THE MORNING AND AT BEDTIME.Active esomeprazole (NexIUM) [address] capsule Take 40 mg by mouth in the morning. Take before meals.Active furosemide (Lasix) 40 MG tablet Take 40 mg by mouth in the morning.04/26/2023ctive gabapentin (Neurontin) 300 MG capsule Take 600 mg by mouth in the morning and 600 mg in the evening and 600 mg before bedtime.Active baclofen (Lioresal) 20 MG tablet Indications:Cervical dystoniaTAKE 1 TABLET BY MOUTH 4 TIMES DAILY NEEDED 120 tablet tive traMADol (Ultram) 50 MG tablet Indications:Cervical paraspinal muscle spasmTAKE 1 TABLET BY MOUTH IN THE MORNING AND 1 TABLET BEFORE BEDTIME 60 tablet 5Active temazepam (Restoril) 30 MG capsule Indications:Insomnia, unspecified typeTake 1 capsule (30 mg) by mouth as needed at bedtime for sleep 30 capsule 5Active Active Problems ProblemNoted DateDiagnosed DateAcute abdominal pain2024Superior mesenteric artery thrombosis (HHS-HCC) Social History Tobacco UseTypesPacks/DayYears UsedDateSmoking Tobacco: NeverSmokeless Tobacco: Never Tobacco Cessation:Counseling Given: Not Answered Alcohol UseStandard Drinks/WeekCommentsYes3 (1 standard drink = 0.6 oz pure alcohol)Sex and Gender InformationValueDate RecordedSex Assigned at BirthMale 02/12/2024 11:52 AM EDTLegal OrjYokf7201/04/2023 7:07 PM EDTGender IdentityMale 02/12/2024 11:52 AM EDTSexual EnofnckgvcrJkbvjbc92/22/2024 11:52 AM EDT Last Filed Vital Signs Vital SignReadingTime TakenCommentsBlood Nowkfpgu212/7602 1:39 PM EST Efaip9052 1:39 PM ESTTemperature--Respiratory Rate--Oxygen Nuzteitgyh19% 11/28/2024 1:39 PM ESTInhaled Oxygen Concentration--Vyzlho68.9 kg (220 lb 3.2 oz)08/14/2024 1:49 PM WVGXouiyg792.4 cm (6' 1 )08/14/2024 1:49 PM EDTBody Mass Index29.0508/14/2024 1:49 PM EDT Plan of Treatment Not on file Insurance Care Teams Team MemberRelationshipSpecialtyStart DateEnd Date Nelida Stock NP [address] [place] [address] Referring PhysicianFamily Medicine07/16/24 Giovana Cm DO [address] [place] [address] Referring PhysicianNeurolog11/28/24
[2025-08-12 13:28] LABS: Anion Gap 12.0; Blood Urea Nitrogen 14.0 mg/dL (7.0-18.0); Calcium 8.8 mg/dL (8.5-10.1); Carbon Dioxide 31.3 mmol/L (21.0-32.0); Chloride 102 mmol/L (98-107); Estimated GFR (African America >60 (>=60 mL/min/1.73m^2); Estimated GFR (Non-African Ame 58 (>=60 mL/min/1.73m^2); Glucose 115 mg/dL (74-106); Potassium 4.3 mmol/L (3.5-5.1); Sodium 141 mmol/L (136-145)
== END 2025-08-12 12:49 | disposition home or self-care (01) ==
LOC: LAB 12:51
PROVIDERS: PCP Nurse Practitioner; Visit Provider Internal Medicine Cardiovascular Disease
DX: I50.33 Acute on chronic diastolic (congestive) heart failure (principal)
CPT/HCPCS: 36415; 80048; 83880

== ENCOUNTER 2025-08-12 14:50 | Outpatient (REF) | payer OTHER, SELFPAY ==
--- OUTSIDE RECORDS SUMMARY | 2025-08-12 13:40 | XMS_ITS | Encounter Summary ---
Author Organization [facility] Address [address] [place] [address] Care Team Providers Care Industrial Engineer Name Role Phone Nelida Stock-Bi Primary Care Provider Reason for Visit * ReasonCommentsFollow-upPatient is here today S/P ablation. Patient states his body is holding water and it got to the point to where he couldn't breath. Per patient Dr had him restart Lasix, patient states he has been taking the Lasix 2 to 3 times per for the last 8 day. Patient is taking 40 in am and 60 in the afternoon.Before than he was taking them as needed.HypertensionEdemaCongestive Heart FailureLeft atrial enlargmentStrokeAtrial FibrillationDizziness Dizziness/lightheaded with standing and with urinating. Encounter Details DateTypeDepartmentCare Team (Latest Contact Info)Emiwbdtzsbq81/21/2025 1:40 PM EDTFollow-[facility] [address] [place] [address] Jessica Rausch, JOYCE [address] [place] [phone] Paroxysmal atrial fibrillation (CMS/HCC) (Primary Dx); Chronic diastolic heart failure (CMS/HCC) Social History Tobacco UseTypesPacks/DayYears UsedDateSmoking Tobacco: FormerCigarettesPassive Smoke Exposure: PastSmokeless Tobacco: NeverAlcohol UseStandard Drinks/Week CommentsYes3 (1 standard drink = 0.6 oz pure alcohol)3 times per week beerUT Safety & EnvironmentAnswerDate RecordedFear of Current or Ex-PartnerNot on file 12/14/2023Emotionally AbusedNot on file12/14/2023hysically AbusedNot on file 12/14/2023Sexually AbusedNot on file12/14/2023hysically or Sexually AbusedNot on file12/14/2023Sex and Gender InformationValueDate RecordedSex Assigned at TiaatHfjb57/01/2025 7:22 AM EDTLegal AgoYpiu6404/20/2022 11:54 PM EDTGender XozffcljImhe03/01/2025 7:22 AM EDTSexual OrientationHeterosexual or Straight 07/23/2025 7:22 AM EDTdocumented as of this encounter Last Filed Vital Signs Vital SignReadingTime TakenCommentsBlood Pieltvre126/ 1:42 PM EDT Ttkqi085608/12/2025 1:42 PM EDTTemperature--Respiratory Rate--Oxygen Zlrtamjoec19% 08/12/2025 1:42 PM EDTInhaled Oxygen Concentration--Vczlhg416 kg (225 lb) 08/12/2025 1:42 PM OBNIstqhx834.5 cm (6' 3 )08/12/2025 1:42 PM EDTBody Mass Index28.121 1:42 PM EDTdocumented in this encounter Functional Status * BPAnswerDate of PqayprxqfeNgiqcq776/7808/12/2025 1:42 PM Laurita Sebastian MA * PulseAnswerDate of FnekuggvelVbuaew0649/21/2025 1:42 PM Laurita Sebastian MA * Patient PositionAnswerDate of VuvlfdhtjuCcoyayXagsxum59/21/2025 1:42 PM EDT Laurita Turcios MA * BPAnswerDate of MvbxcbsbxjAtltyh997/7808/12/2025 1:42 PM Laurita Sebastian MA * PulseAnswerDate of FpukaeylqyPafvuw3333/21/2025 1:42 PM Laurita Sebastian MA * ObH9WebdkjPjdu of NomvhcpouqAbwbbc0542/21/2025 1:42 PM EDTCLaurita chairez MA * BP LocationAnswerDate of AssessmentAuthorLeft arm08/12/2025 1:42 PM EDT Laurita Turcios MA * Patient PositionAnswerDate of AafdzfutorZufkpmJirnxbv98/21/2025 1:42 PM EDT Laurita Turcios MA documented as of this encounter Plan of Treatment DateTypeDepartmentCare Team (Latest Contact Info)Qjwsxaskqhw08/30/2025 9:40 AM EDTFollow-Up [facility] [address] [place] [phone] Jessica Rausch CNP [address] [place] [phone] documented as of this encounter Procedures Procedure NamePriorityDate/TimeAssociated DiagnosisCommentsECG 12 LEAD UNIT TWZRFWVEXOedqpdr91/21/2025 2:06 PM EDT Paroxysmal atrial fibrillation (CMS/HCC) documented in this encounter Results * ECG 12 lead unit performed (08/12/2025 2:06 PM EDT)Specimen (Source)Anatomical Location / LateralityCollection Method / VolumeCollection TimeReceived Time Narrative Authorizing ProviderResult TypeResult StatusMelsybil Rausch [facility] ORDERABLES Final Result documented in this encounter Visit Diagnoses Diagnosis Paroxysmal atrial fibrillation (CMS/HCC)- Primary Atrial fibrillation Chronic diastolic heart failure (CMS/HCC) Chronic diastolic heart failure documented in this encounter Care Teams Team MemberRelationshipSpecialtyStart DateEnd Date Nelida Stock FNP-C [address] [place] [address] PCP - GeneralNurse Bgmyhcozhveb08/20/25documented as of this encounter
--- OUTSIDE RECORDS SUMMARY | 2025-08-12 14:55 | XMS_ITS | Encounter Summary ---
Author Organization [facility] Address [address] [place] [address] Care Team Providers Care Compressed Air Pile Driver Operator Name Role Phone Nelida Stock EAR MOLD LABORATORY TECHNICIAN-Bi Primary Care Provider [phone] Encounter Details DateTypeDepartmentCare Team (Latest Contact Info)Rmridggnvoj42/21/2025Orders Only [facility] at [place] [address] [place] [address] Alecia Rodrigues MA Acute on chronic diastolic heart failure (CMS/HCC) [...] file12/14/2023Sex and Gender InformationValueDate RecordedSex Assigned at ApkzmVkih72/01/2025 7:22 AM EDTLegal HogJnce5104/20/2022 11:54 PM EDTGender QigzmbthQgsy46/01/2025 7:22 AM EDTSexual OrientationHeterosexual or Straight 07/23/2025 7:22 AM EDTdocumented as of this encounter Functional Status * BPAnswerDate of FsqbbkzfeiAylwlm258/7810/ 1:42 PM Lauriat Sebastian MA * PulseAnswerDate of SgwntlrdwuSygteb7276 1:42 PM Laurita Sebastain MA * Patient PositionAnswerDate of NrzdygunywSoogvnSjxuhif85/21/2025 1:42 PM EDT Lauriat Turcios MA * BPAnswerDate of MfwwzvlqxaMvmlos880/7810 1:42 PM Laurita Sebastian MA * PulseAnswerDate of SpkjkcbnugGfgtma9832 1:42 PM Laurita Sebastian MA * GiC0BvdfhwHbjm of RbitkcqkblXctwjl0870/21/2025 1:42 PM Laurita Sebastian MA * BP LocationAnswerDate of AssessmentAuthorLeft arm08/12/2025 1:42 PM EDT Laurita Turcios MA * Patient PositionAnswerDate of VmdbnldlkhWvygorCsfsvmt69/21/2025 1:42 PM EDT Laurita Turcios MA documented as of this encounter Plan of Treatment DateTypeDepartmentCare Team (Latest Contact Info)Avwgrdhpvvg72/30/2025 9:40 AM EDTFollow-Up [facility] at [address] [phone] Jessica Rausch, INSTALL TECHNICIAN [address] [place] [address] NameTypePriorityAssociated DiagnosesOrder ScheduleB-type natriuretic peptideLab Routine Acute on chronic diastolic heart failure (CMS/HCC) Expected: 08/12/2025 (Approximate), Expires: 08/12/2026documented as of this encounter Visit Diagnoses Diagnosis Acute on chronic diastolic heart failure (CMS/HCC)- Primary Acute on chronic diastolic heart failure documented in this encounter Care Teams Team MemberRelationshipSpecialtyStart DateEnd Date Nelida Stock FNP-C [address] [place] [id number] PCP - GeneralNurse Oqoyxipdosxq24/20/25documented as of this encounter
--- OUTSIDE RECORDS SUMMARY | 2025-08-12 14:56 | XMS_ITS | Clinical Summary ---
Author Organization [facility] Address [address] [place] [address] Care Team Providers Care Hide Tanner Name Role Phone Nelida Stock PERMANENT MOLD SUPERVISOR Unavailable ToiGiovana turner Unavailable [phone] Allergies Active AllergyReactionsCriticalityNoted DateCommentsBee QsumdIpmcikh96/14/2023 ColchicineOther,Zltlxfm2810/04/2013 Sleepiness Sleepiness Medications MedicationSigDispense QuantityRefillsLast FilledStart DateEnd DateStatus allopurinol (Zyloprim) 300 MG tablet Take 300 mg by mouth DailyActive apixaban (Eliquis) 5 MG tablet Twice daily09/13/2023ctive Aspirin Low Dose 81 MG EC tablet Take 81 mg by mouth Daily10/17/2023ctive atorvastatin (Lipitor) 80 MG tablet Every rkepbfb5904/12/2024ctive buPROPion SR (Wellbutrin SR) 150 MG 12 [...] Assigned at BirthMale 02/12/2024 11:52 AM EDTLegal HytQfzi6201/04/2023 7:07 PM EDTGender IdentityMale 02/12/2024 11:52 AM EDTSexual XlngddidgdkYnbpoda26/22/2024 11:52 AM EDT Last Filed Vital Signs Vital SignReadingTime TakenCommentsBlood Tftynziq199/7602 1:39 PM EST Txria0137 1:39 PM ESTTemperature--Respiratory Rate--Oxygen Rvoeayjuou02% 11/28/2024 1:39 PM ESTInhaled Oxygen Concentration--Nqccqu49.9 kg (220 lb 3.2 oz)08/14/2024 1:49 PM IURQwwaya172.4 cm (6' 1 )08/14/2024 1:49 PM EDTBody Mass Index29.0508/14/2024 1:49 PM EDT Plan of Treatment Not on file Insurance Care Teams Team MemberRelationshipSpecialtyStart DateEnd Date Nelida Stock NP [address] [place] [address] Referring PhysicianFamily Medicine07/16/24 Giovana Cm DO [address] [place] [address] Referring PhysicianNeurolog11/28/24
--- OUTSIDE RECORDS SUMMARY | 2025-08-12 14:56 | XMS_ITS | Clinical Summary ---
Author Organization [facility] Address [address] [place] [address] Care Team Providers Care Welfare Officer Name Role Phone No, Physician Primary Care Provider Unavailabl e Allergies Active AllergyReactionsCriticalityNoted DateCommentsBee Venom Protein (Honey Bee)BltyjchdbtzWvvt07/11/2269PebcyrjzqmNxsmily03/11/2025 Medications MedicationSigDispense QuantityRefillsLast FilledStart DateEnd DateStatus temazepam [...] EDTExpired Active Problems ProblemNoted DateDiagnosed DateChest pain07/03/2025Renal uwrdgpn7306/26/2019 Assessment & Plan (06/29/2019 3:54 PM EDT): Possibly embolic. Agree with systemic anticoagulation and hypercoagulable work- up. Can be complete as an outpatient. Patient is at high risk for atrial fibrillation given his severe left atrial enlargement. Recommended 30-day event monitor. If this is negative then consider an implantable loop recorder. We will arrange for 30-day event monitor. Elevated twiypbpr43/04/2019 Assessment & Plan (06/29/2019 3:53 PM EDT): [...] failure. Reviewed right left heart catheterization from [facility] in 2016. Diastolic heart failure at [...] unfortunately his mother's side she is a [place] immigrant and does not know much about her family history. Resolved Problems ProblemNoted DateDiagnosed DateResolved DateShortness of prwjwe8506/28/2019 06/29/2019 Assessment & Plan (06/28/2019 2:48 PM EDT): Unexplained shortness of breath Mild pulmonary hypertension Mild elevation of troponin Rule out pulmonary embolism. Given renal infarction, will plan ventilation/perfusion scan. Encounters DateTypeDepartmentCare JezvHzxqqsrarfk85/12/2025 12:25 PM EDT - 07/04/2025 1:40 PM EDTSurgery [facility] [address] [place] [address] Terrence Medina MD Coronary Blgbbourd47/11/2025 12:06 AM EDT - 07/04/2025 6:54 PM EDTHospital Encounter [facility] [address] [place] [address] [facility] Hospitalists, Generic Prashant Taylor MD Kiza, Thiago Anna, DO Discharge Disposition: Homefrom Last 3 Months Social History Tobacco UseTypesPacks/DayYears UsedDateSmoking Tobacco: FormerCigarettes Smokeless Tobacco: Never Tobacco Cessation:Counseling Given: Not Answered Alcohol UseStandard Drinks/WeekCommentsYes4 (1 standard drink = 0.6 oz pure alcohol)only during events and when he goes out every mondayOHIOHEALTH [facility] UtilitiesAnswer Date RecordedIn the past 12 months has the [employer], gas, oil, or water [email or web address] threatened to shut off services in your [...] were you homeless or living in a jail (including now)?No07/03/2025Sex and Gender InformationValueDate Recorded Sex Assigned at BirthNot on fileLegal QsdCnpn8603/08/2014 3:14 PM EDTGender CvfxvgovRiui81/04/2019 8:32 AM EDTSexual MmyrxviibzgNeaeqmjt33/04/2019 9:16 AM EDT Last Filed Vital Signs Vital SignReadingTime TakenCommentsBlood Uxswpeel881/8209 4:31 PM EDT Wonaw754407/04/2025 4:31 PM RFYElwkbrthasm06.4 ??C (97.5 ??F)07/04/2025 3:24 PM EDTRespiratory Ysrr2205 4:31 PM EDTOxygen Fkbukuuxtc60%07/04/2025 3:24 PM EDTInhaled Oxygen Concentration--Cunkkh61.8 kg (220 lb)07/03/2025 12:21 AM ALJNlwemf522.5 cm (6' 3 )07/03/2025 12:21 AM EDTBody Mass Index27.509 12:21 AM EDT Plan of Treatment DateTypeDepartmentCare Team (Latest Contact Info)Jgplbwcodor09/23/2025 10:20 AM ESTOffice Visit [facility] [address], 3rd [place] [phone] Day, [place] [address] Health MaintenanceDue DateLast DoneCommentsCT Adyzmfboazcz1966Fecal DNA 1966Fecal occult blood test (FOBT,FIT)1966PSA Level1966MMR Vaccines (1 of 1 - Standard series)1967Wellness Visit1969HIV Qojxgpjrx02/24/1981Hepatitis C Cnjkohieq39/24/1984Tetanus/Diphtheria/Pertussis (1 - Tdap)1985Flexible avqeepiwnskfw78/24/2016Pneumococcal Vaccine: 50+ Years (1 of 1 - PCV)2016Depression Screening/Follow-Up (PHQ-12/01)06/26/2020 06/26/20192931Waautcdpael30/14/202402/Colorectal Cancer Screening/Monitoring 4CLASS III : OFFICE VISIT/OVID-19 Vaccine ( season), 10/21/2021, 01/01/2021, Additional history existsInfluenza Vaccine (#1)06/23/2025LASS III : AVEJUXCVPV24/12/2025 07/04/2025, 07/03/2025, 06/29/2019, Additional history existsCLASS III : SNKCIRJMP89, 07/03/2025, 06/29/2019, Additional history exists Class III: Hfzhlgfll92/12/43439607/04/2025, 5CLASS III : EKG0307/04/2025, 07/03/2025, 07/03/2025, Additional history existsRSV Vaccines (1 - 1-dose 75+ series)2041Hepatitis B PsaiuozzBdfcqlrnx44/30/2008, 11/05/2007, 10/04/2007Zoster GfuvkveuNywhfsadl25/04/2024, 01/09/2024HIB VaccinesAged OutNo longer eligible based on [...] topic Procedures Procedure NamePriorityDate/TimeAssociated DiagnosisCommentsLEFT HEART CATH Gwzsdev0707/04/2025 1:59 PM EDT CORONARY AWYIXSYTZSXNtdphsi19/12/2025 1:59 PM EDT EKG007/04/2025 11:37 AM EDTCBC WITH AUTO GHWLFARVMAUEYmjysln93/12/2025 7:30 AM EDT SIBULnmje32/12/2025 7:30 AM EDT CBC AND AGENKYCBSUCBPoeatfb36/12/2025 7:30 AM EDT BASIC METABOLIC ELNEONbdemuy77/12/2025 7:30 AM EDT MAGNESIUM GAZEZLpsjfhl89/12/2025 7:30 AM EDT HVEPMQRFTYXnzktzf73/12/2025 7:30 AM EDT TFBONrhcc16/11/2025 11:42 PM EDT RNHSZldpz00/11/2025 5:15 PM EDT ECHOCARDIOGRAM 2D XZHLWQBTYawjeua44/11/2025 8:10 AM EDT FDVOOhhci08/11/2025 6:29 AM EDT ECG 12-XQHIJYGQ07/11/2025 5:09 AM EDT CBC WITH AUTO DHZROVACNYZRCiqlrsy95/11/2025 2:41 AM EDT CBC AND ZVMZBIBNZVCRUeegnsw74/11/2025 2:41 AM EDT BASIC METABOLIC RZPVEHbzdgbm73/11/2025 2:41 AM EDT MAGNESIUM KJUFYHevjfgg23/11/2025 2:41 AM EDT GVNYPTVDFQRjviugl52/11/2025 2:41 AM EDT TROPONIN X 2 (NOW AND REPEAT IN 2 HOURS)Timed07/03/2025 2:41 AM EDT ECG 12-JXUPOOXU54/11/2025 1:53 AM EDT ZDQLllmsyb18/11/2025 12:58 AM EDT HEMOGLOBIN H3PNwbghwj92/11/2025 12:58 AM EDT LIPID SXRLWYODU01/11/2025 12:58 AM EDT TROPONIN X 2 (NOW [...] TimeReceived Time Narrative Authorizing ProviderResult TypeResult StatusGeneric [facility] HospitalistsSCANNED ORDERSFinal Result * (ABNORMAL) APTT Heparin Coverage (07/04/2025 7:30 AM EDT) Only the most recent of4 resultswithin the time period is included. ComponentValueRef RangeTest MethodAnalysis TimePerformed AtPathologist Signature APTT92(H)23 - 34 elucxhb2507/04/2025 8:35 AM EDTMH LABSpecimen (Source)Anatomical Location / LateralityCollection Method / VolumeCollection TimeReceived TimeBlood BLOOD SPECIMEN / UnknownVenipuncture / Jxdmozm4807/04/2025 7:30 AM EDT07/04/2025 7:51 AM EDT Narrative LAB - 07/04/2025 8:35 AM EDT Therapeutic range for APTT's is 68 - 104 seconds Authorizing ProviderResult TypeResult StatusPrashant BOTELLO BLOOD ORDERABLES Final ResultPerforming OrganizationAddressCity/State/ZIP CodePhone Number LAB [address] [place] [address] * (ABNORMAL) CBC Auto Differential (07/04/2025 7:30 AM EDT) Only the most recent of2 resultswithin the time period is included. ComponentValueRef RangeTest MethodAnalysis TimePerformed AtPathologist Signature WBC6.004.50 - 11.00 K/mcL07/04/2025 7:55 AM EDTMH LABRBC3.97(L)4.50 - 5.90 M/mcL 07/04/2025 7:55 AM EDTMH JEWIdbazlrfwt51.113.5 - 17.5 g/dL07/04/2025 7:55 AM EDT NMYUjatmapsnf17.341.0 - 53.0 %07/04/2025 7:55 AM EDTMH FHJGWZ325.5(H)80.0 - 100.0 fL07/04/2025 7:55 AM EDTM BEPSDI97.5(H)26.0 - 34.0 pg07/04/2025 7:55 AM EDFORMERLY [facility] OORXVCQ75.331.0 - 37.0 g/dL07/04/2025 7:55 AM EDTM EAVIxgwzedee114156 - 400 K/[facility]07/04/2025 7:55 AM EDTM LABRDW - CV12.411.6 - 14.8 %07/04/2025 7:55 AM EDTM TXQSIM31.79.4 - 12.4 fL07/04/2025 7:55 AM EDTM EMKZigrgwyxvik58.8% 07/04/2025 7:55 AM EDTM AQXDerppimhizy95.0%07/04/2025 7:55 AM EDTM LAB Monocytes6.7%07/04/2025 7:55 AM EDTM LABEosinophils1.8%07/04/2025 7:55 AM EDFORMERLY [facility] LABBasophils0.5%07/04/2025 7:55 AM EDTM LABIG Percent0.20%07/04/2025 7:55 AM EDFORMERLY [facility] LABComment:The IG parameter is the percentage of metamyelocytes, myelocytes and promyelocytes. An immature granulocyte count (IG) of 1% or more suggests the possibility of infection, an IG count of 3% is very likely related to an infection.Neutrophils Abs3.351.70 - 7.00 K/[facility]07/04/2025 7:55 AM EDTM LAB Lymphocytes Abs2.100.90 - 4.00 K/[facility]07/04/2025 7:55 AM EDTM LABMonocytes Abs 0.400.30 - 0.90 K/[facility]07/04/2025 7:55 AM EDTM LABEosinophils Abs0.110.00 - 0.50 K/[facility]07/04/2025 7:55 AM EDTM LABBasophils Abs0.030.00 - 0.30 K/[facility]07/04/2025 7:55 AM EDTM LABIG Absolute0.010.00 - 0.30 K/mcL07/04/2025 7:55 AM EDFORMERLY [facility] LAB Nucleated RBC0.0%07/04/2025 7:55 AM EDFORMERLY [facility] LABNucleated RBC Abs0.000.00 - 0.00 K/mcL07/04/2025 7:55 AM EDFORMERLY [facility] LABSpecimen (Source)Anatomical Location / LateralityCollection Method / VolumeCollection TimeReceived TimeBloodBLOOD SPECIMEN / UnknownVenipuncture / Wudjazk4307/04/2025 7:30 AM EDT07/04/2025 7:51 AM EDT Narrative Authorizing ProviderResult TypeResult StatusEric Wilfrido CASTAÑEDA BLOOD ORDERABLESFinal ResultPerforming OrganizationAddressCity/State/ZIP CodePhone Number LAB [address] [place] [address] * Phosphorus (07/04/2025 7:30 AM EDT) Only the most recent of2 resultswithin the time period is included. ComponentValueRef RangeTest MethodAnalysis TimePerformed AtPathologist Signature Phosphorus3.02.7 - 4.5 mg/dL07/04/2025 8:27 AM EDFORMERLY [facility] LABSpecimen (Source) Anatomical Location / LateralityCollection Method / VolumeCollection Time Received TimeBloodBLOOD SPECIMEN / UnknownVenipuncture / Vcyeyjx6107/04/2025 7:30 AM EDT07/04/2025 7:51 AM EDT Narrative Authorizing ProviderResult TypeResult StatusEric Wilfrido CASTAÑEDA BLOOD ORDERABLESFinal ResultPerforming OrganizationAddressty/State/ZIP CodePhone Number LAB [address] [place] [address] * Magnesium Level (07/04/2025 7:30 AM EDT) Only the most recent of2 resultswithin the time period is included. ComponentValueRef RangeTest MethodAnalysis TimePerformed AtPathologist Signature Magnesium1.81.6 - 2.4 mg/dL07/04/2025 8:27 AM EDFORMERLY [facility] LABSpecimen (Source) Anatomical Location / LateralityCollection Method / VolumeCollection Time Received TimeBloodBLOOD SPECIMEN / UnknownVenipuncture / Twxrzqs1307/04/2025 7:30 AM EDT07/04/2025 7:51 AM EDT Narrative Authorizing ProviderResult TypeResult StatusEric Wilfrido CASTAÑEDA BLOOD ORDERABLESFinal ResultPerforming OrganizationAddressCity/State/ZIP CodePhone Number LAB [address] [place] [address] * (ABNORMAL) Basic Metabolic Panel (07/04/2025 7:30 AM EDT) Only the most recent of2 resultswithin the time period is included. ComponentValueRef RangeTest MethodAnalysis TimePerformed AtPathologist Signature Cqbhpk517361 - 145 mmol/L07/04/2025 8:27 AM EDTMH LABPotassium3.93.5 - 5.1 mmol/L07/04/2025 8:27 AM EDTMH SHFRhmgazlx94602 - 108 mmol/L07/04/2025 8:27 AM EDTMH ZXCGqokonyqpbe5784 - 32 mmol/L07/04/2025 8:27 AM EDTMH LABAnion Uvt3074 - 20 mmol/L07/04/2025 8:27 AM EDTMH AQIEvgqsox341(H)65 - 99 mg/dL07/04/2025 8:27 AM EDTMH WWYHYZ368 - 25 mg/dL07/04/2025 8:27 AM EDTMH LABCreatinine0.950.50 - 1.30 mg/dL07/04/2025 8:27 AM EDTMH JCMeOTY44>=60 mL/min/1.73 m207/04/2025 8:27 AM EDTMH LABComment:Estimated GFR was calculated using the 2020 CKD-EPI creatinine equation.BUN/Creatinine Ratio10.510.0 - 20.009 8:27 AM EDTMH LABCalcium9.28.4 - 10.2 mg/dL07/04/2025 8:27 AM EDTMH LABSpecimen (Source) Anatomical Location / LateralityCollection Method / VolumeCollection Time Received TimeBloodBLOOD SPECIMEN / UnknownVenipuncture / Amclgtb3907/04/2025 7:30 AM EDT07/04/2025 7:51 AM EDT Narrative LAB - 07/04/2025 8:27 AM EDT [facility] Laboratory Services has implemented the eGFR calculation approach that does not have a coefficient for race that conforms to the NKF-ASN Task Force Recommendations. Authorizing ProviderResult TypeResult StatusThiago CASTAÑEDA BLOOD ORDERABLESFinal ResultPerforming OrganizationAddressCity/State/ZIP CodePhone Number LAB [address] [place] [address] * Echocardiogram complete w contrast (07/03/2025 8:10 AM EDT)ComponentValueRef RangeTest MethodAnalysis TimePerformed AtPathologist SignatureEF 52.2235964415034%[employer] CVAortic valve area3.86548237144409rf?[employer] CVAV peak gradient3.850453327824btCfCHMR SYNAPSE CVAV mean gradient 1.9209093648819wzCmTIQF SYNAPSE CVSpecimen (Source)Anatomical Location / LateralityCollection Method / VolumeCollection TimeReceived Time07/03/2025 7:31 AM EDT Narrative [facility] [employer] [facility] CV - 07/03/2025 9:40 AM EDT Summary [...] Thiago Bob Referring Physician: ? Rajan Gallegos Surveying Crew Rodman: ? Jennifer Grace RDCS, RVT Attending Physician: ? Generic [facility] Hospitalists Patient Info Site Location: ? Exam Location: ? [facility] Name: ? Syed Howard Age: ? 59 years : ? 1965 Gender: ? Male Accession #: ? [id number] Ht: ? 191 cm Wt: ? 100 kg BSA: ? 2.31 m2 HR: ? 63 bpm BP: ? 126 / ? 82 mmHg Heart Rhythm: ? Sinus Rhythm Technical Quality: ? Fair, Technically difficult Exam Date: ? 07/03/2025 7:31 AM Patient Status: ? INPATIENT Exam Type: ? ECHOCARDIOGRAM COMPLETE W CONTRAST Study Info Indications ?R07.9 - Chest pain, ??unspecified [id number] BMI: ? 27.50 kg/m2 History/Risk Factors Chest [...] ? 12 cm ? PV Regurgitation Doppler NJ Peak Gradient ?7 mmHg ? NJ Peak End Diastolic Velocity ?133 cm/s Mitral Valve Name ? Value ?Normal MV Doppler MV Peak Velocity ?0.57 m/s ? MV Peak Gradient ?1 mmHg ? MV Mean Gradient ?0 mmHg ? MV VTI ? 15 cm ? MV Decel [place] ? 401 cm/s2 ? MV PHT ? [...] cm2 ? AV Area Index (Cont Eq Adryan) ? 2 cm2/m2 ? LVOT Vmax/AV Vmax [...] ? 16-34 RA Dimensions RA Systolic Major Crawford Length (4C) ? 6.6 cm ? 2.1-2.7 [...] with free breathing or Valsalva. Ordering Physician: Thiaog Bob Referring Physician: Rajan Gallegos Surveying [employer] Rodman: Jennifer Grace RDCS, RVT Attending Physician: Mesfin [facility] Hospitalists Patient Info Site Location: Exam Location: [facility] Name: Syed Howard Age: 59 years : 1965 Gender: Male Ht: 191 cm Wt: 100 kg BSA: 2.31 m2 HR: 63 bpm BP: 126 / 82 mmHg Heart Rhythm: Sinus Rhythm Technical Quality: Fair, Technically difficult Exam Date: 07/03/2025 7:31 AM Patient Status: INPATIENT Exam Type: ECHOCARDIOGRAM COMPLETE W CONTRAST Study Info Indications R07.9 - Chest pain, unspecified [id number] BMI: 27.50 kg/m2 History/Risk Factors Chest Pain: [...] PV VTI 12 cm PV Regurgitation Doppler NJ Peak Gradient 7 mmHg NJ Peak End Diastolic Velocity 133 cm/s Mitral Valve Name Value Normal MV Doppler MV Peak Velocity 0.57 m/s MV Peak Gradient 1 mmHg MV Mean Gradient 0 mmHg MV VTI 15 cm MV Decel [place] 401 cm/s2 MV PHT 39 ms MV [...] ml/m2 16-34 RA Dimensions RA Systolic Major Crawford Length (4C) 6.6 cm 2.1-2.7 RA Area [...] ComponentValueRef RangeTest MethodAnalysis TimePerformed AtPathologist Signature Ventricular Jowp72EGGWLFSZyqmee Hccb50XFOLUKWP-R Ksuetqqe727whVHIROXQ Duration 110msMUSEQ-T Fkfthbog570icYCKZJDP Calculation (Bezet)462msMUSEP Hhqt16kjrlyxw MUSER Crawford-21degreesMUSET Qqft27rlejtetOKZDJhdoegmn (Source)Anatomical Location / LateralityCollection Method / VolumeCollection [...] TimeReceived TimeBloodBLOOD SPECIMEN / Unknown Venipuncture / Pwsiifr1207/03/2025 2:41 AM EDT07/03/2025 2:46 AM EDT Narrative Authorizing ProviderResult TypeResult StatusEric Wilrfido Bob DOLAB BLOOD ORDERABLESFinal ResultPerforming OrganizationAddressCity/State/ZIP CodePhone Number LAB [address] [place] [phone] * (ABNORMAL) CBC (07/03/2025 12:58 AM EDT)ComponentValueRef RangeTest Method Analysis TimePerformed AtPathologist SignatureWBC6.104.50 - 11.00 K/mcL 07/03/2025 1:08 AM EDFORMERLY [facility] LABRBC4.00(L)4.50 - 5.90 M/mcL07/03/2025 1:08 AM EDT RWGUxznginogj65.213.5 - 17.5 g/dL07/03/2025 1:08 AM EDFORMERLY [facility] ZUSMhqybvbmat35.8 41.0 - 53.0 %07/03/2025 1:08 AM EDTM KEJSIC156.5(H)80.0 - 100.0 fL07/03/2025 1:08 AM EDTM YUYDDI72.5(H)26.0 - 34.0 pg07/03/2025 1:08 AM EDFORMERLY [facility] XPEEQVI08.0 31.0 - 37.0 g/dL07/03/2025 1:08 AM EDFORMERLY [facility] TKBUcnguzsdf298818 - 400 K/[facility] 07/03/2025 1:08 AM EDFORMERLY [facility] LABRDW - CV12.511.6 - 14.8 %07/03/2025 1:08 AM EDFORMERLY [facility] UKJLVA52.69.4 - 12.4 fL07/03/2025 1:08 AM EDTM LABNucleated RBC0.0%07/03/2025 1:08 AM EDFORMERLY [facility] LABNucleated RBC Abs0.000.00 - 0.00 K/[facility]07/03/2025 1:08 AM EDT LABSpecimen (Source)Anatomical Location / LateralityCollection Method / VolumeCollection TimeReceived TimeBloodBLOOD SPECIMEN / UnknownVenipuncture / Ykjcbzo6107/03/2025 12:58 AM EDT07/03/2025 1:03 AM EDT Narrative Authorizing ProviderResult TypeResult StatusEric Tamelaelsagianna Ebrun.comclarke DOLWindgap Medical BLOOD ORDERABLESFinal ResultPerforming OrganizationAddressCity/State/ZIP CodePhone Number LAB [address] [place] [address] * Hemoglobin A1c (07/03/2025 12:58 AM EDT)ComponentValueRef RangeTest Method Analysis TimePerformed AtPathologist SignatureHemoglobin A1C5.04.2 - 5.6 % 07/03/2025 2:12 AM EDTM LABEstimated Average Icaapaa5615 - 114 mg/dL 07/03/2025 2:12 AM EDFORMERLY [facility] LABComment:Specimen (Source)Anatomical Location / LateralityCollection Method / VolumeCollection TimeReceived TimeBloodBLOOD SPECIMEN / UnknownVenipuncture / Zqlvpas2707/03/2025 12:58 AM EDT07/03/2025 1:03 AM EDT Narrative Authorizing ProviderResult TypeResult StatusEric Brittza Kiza DOLAB BLOOD ORDERABLESFinal ResultPerforming OrganizationAddressCity/State/ZIP CodePhone Number LAB [address] [place] [address] * (ABNORMAL) Lipid Panel (07/03/2025 12:58 AM EDT)ComponentValueRef RangeTest MethodAnalysis TimePerformed AtPathologist JmqitmkqjCnxzpuxjamk308641 - 199 mg/dL07/03/2025 1:40 AM [facility] LABComment: National Cholesterol Education Program Guidelines: Cholesterol Desirable: <200 mg/dL Borderline High: ?200-239 mg/dL High: ? greater than or equal to 240 mg/dL Xhmvcxjsgdlhe853(H)30 - 150 mg/dL07/03/2025 1:40 AM [facility] LABComment: National Cholesterol Education Program Guidelines: ??Triglyceride Normal: <150 mg/dL Borderline High: ?150-199 mg/dL High: ? 200-499 mg/dL Very High: ?greater than or equal to 500 mg/dL FEG1000 - 59 mg/dL07/03/2025 1:40 AM EDFORMERLY [facility] LABComment: National Cholesterol Education Program Guidelines: HDL Cholesterol Low: <40 mg/dL Near Optimal: ?40-59 mg/dL High: ?greater than or equal to 60 mg/dL Chol/HDL Ratio2.0uokyt8907/03/2025 1:40 AM EDFORMERLY [facility] LABComment: Males Cholesterol/HDL Ratio: Average risk: ? 5.0 1/2 average risk: ?? 3.4 2 x average risk: ?? 9.6 LDL Afiqelzecs1720 - 130 mg/dL07/03/2025 1:40 AM [facility] LABComment: National Cholesterol Education Program Guidelines: LDL Cholesterol Optimal: <100 mg/dL Near Optimal/above Optimal: ?100-129 mg/dL Borderline High: ? 130-159 mg/dL High: ?160-189 mg/dL Very High: ? greater than or equal to 190 mg/dL Non HDL Lahwzsqpknl71nd/dL07/03/2025 1:40 AM EDH LABComment: National Cholesterol Education [...] ORDERABLESFinal ResultPerforming OrganizationAddressCity/State/ZIP CodePhone Number LAB [address] [facility] [place] [address] from Last 3 Months Insurance Advance Directives For more information, please contact: [phone] * Full Code (Latest Code Status on File) Date ActivatedDate InactivatedComments07/04/2025 1:56 PM07/04/2025 9:05 PM * Full Code Date ActivatedDate InactivatedComments07/03/2025 12:30 AM07/04/2025 1:56 PM * Full Code Date ActivatedDate InactivatedComments06/26/2019 1:45 PM07/03/2025 12:06 AM Care Teams Team MemberRelationshipSpecialtyStart DateEnd Date No, Physician [facility] PCP - General07/03/25
--- OUTSIDE RECORDS SUMMARY | 2025-08-12 14:56 | XMS_ITS | Clinical Summary ---
Author Organization [facility] Address [address] [place] [address] Phone Care Team Providers Care Black Jack Dealer Name Role Phone Nelida Stock APRN-LOG LOADER HELPER Primary Care Provider [phone] Allergies Active AllergyReactionsCriticalityNoted DateCommentsBee Venom Protein (Honey Bee)Jhoyhyb7609/05/20235650PtcpifvtwyDzvcs31/13/2013 Sleepiness Pollen DadxwhtnCczqgca28/14/2023 Medications MedicationSigDispense QuantityRefillsLast FilledStart DateEnd DateStatus traMADol [...] ProblemNoted DateDiagnosed DateCerebrovascular accident (CVA)09/20/2023 Impairment of lgrzbez5509/20/2023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 09/04/2023 Resolved Problems ProblemNoted DateDiagnosed DateResolved DateTIA (transient ischemic attack) /Status post CVA1/ Encounters DateTypeDepartmentCare YxciZwovlafmkhm25/04/2025Refill [facility] [address] [facility] 5th [place] [phone] Terell Enriquez MD 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 [facility] [address] [place] [address] Rajan Gallegos, NSTEMI (non-ST elevated myocardial infarction) (Multi) (Primary Dx) Discharge Disposition: Short Term Acute Xqcldkip52/10/4170Hwzdsc13/03/2025Refill [facility] [address] [facility] 5th [place] [phone] Terell Enriquez MD Stroke due to occlusion [...] do you have a drink containing alcohol?Patient zjivedhu30/20/2023Q2: How many drinks containing alcohol do you have on a typical day when you are drinking?Patient declined 10/11/2023Q3: How often do you have six or more drinks on one occasion?Patient abkriouc09/20/2023Overall Financial Resource Strain (CARDIA)AnswerDate Recorded How hard is it for you to pay for the very basics like food, housing, medical care, and heating?Not hard at all3PHQ-2AnswerDate RecordedPatient Health Questionnaire-2 Pyoou797/20/2023PRAPARE - TransportationAnswerDate RecordedIn the past 12 months, [...] InformationValueDate RecordedSex Assigned at BirthNot on fileLegal RcsAlcv63/25/2022 1:29 PM ESTGender IdentityNot on fileSexual OrientationNot on file Last Filed Vital Signs Vital SignReadingTime TakenCommentsBlood Rqroupzz149/8109 11:00 PM EDT Jbcfv626507/02/2025 11:00 PM XETIwofkttvctv99.6 ??C (97.9 ??F)07/02/2025 3:24 PM EDTRespiratory Qxce710107/02/2025 11:00 PM EDTOxygen Lsmqdjpyqo25%07/02/2025 11:00 PM EDTInhaled Oxygen Concentration--Uxaxbh89.8 kg (220 lb)07/02/2025 3:24 PM EDT Tvzgpb315.5 cm (6' 3 )07/02/2025 3:24 PM EDTBody Mass Index27.509 3:24 PM EDT Plan of Treatment Health MaintenanceDue DateLast DoneCommentsCT Lldxuururqrz1966FIT-DNA (Cologuard)1966FIT1966HIV Jhffmyxrf51/24/9408Ucgcbbrydmmzm1966 Yearly Adult Efntthhs1966MMR Vaccines (1 of 1 - Standard series)1967 Hepatitis C Pulhhgmot60/24/1984Pneumococcal Vaccine (1 of 2 - PCV)1985 DTaP/Tdap/Td Vaccines (1 - Tdap)1988PSA Prostate Cancer Screening 07/16/20167247Ytiliumntey14/14/202402/Colorectal Cancer Vryxqujud03/14/2024 Ddcfilyurbviyh71/19/202506/, 10/12/2023, 09/05/2023Influenza Vaccine (#1) 5COVID-19 Vaccine (2 - season)09/01/reatinine Level/07/2025, 09/11/2024, 10/11/2023, Additional history exists Diabetes Jsxycltfl10, 09/11/2024, 10/12/2023, Additional history existsPotassium Level, 09/11/2024, 10/11/2023, Additional history existsLipid Panel, 09/04/2023Hepatitis B CuiuhxtpRgrnlksdv14/30/2008, 11/05/2007, 10/04/2007Zoster VaccinesCompleted 03/26/2024, 01/09/2024HIB VaccinesAged OutNo [...] topic Procedures Procedure NamePriorityDate/TimeAssociated DiagnosisCommentsSERIAL TROPONIN, 1 LYWVNVPK24/10/2025 4:34 PM EDT ECG 12-KUIYIVYL20/10/2025 4:15 PM EDT SERIAL TROPONIN-AWSZMEIKGLB04/10/2025 3:37 PM EDT PROTIME-PEGGBXC1307/02/2025 3:37 PM EDT TROPONIN SERIES- (INITIAL, 1 HR)STAT07/02/2025 3:37 PM EDT COMPREHENSIVE METABOLIC OLQAAXBGW70/10/2025 3:37 PM EDT CBC WITH AUTO BJDEMBPDFSYYKRJL93/10/2025 3:37 PM EDT XR CHEST 1 IYJZTVHW79/10/2025 3:32 PM EDT ECG 12-JWZPSPVB18/10/2025 3:20 PM EDT GKIKCEYOWWVEOC94/19/2024 LIPID FFHZCVAZE15/20/2023 5:24 PM EST from Last 3 Months or Most Recently Relevant to Health Maintenance Results * (ABNORMAL) Troponin, High Sensitivity, 1 Hour (07/02/2025 4:34 PM EDT) ComponentValueRef RangeTest MethodAnalysis TimePerformed AtPathologist SignatureTroponin I, High Mrcmcgkvuyp23(HH)0 - 20 ng/L LAB IMMUNOASSAY METHOD 07/02/2025 5:[address] [facility] LABComment:Previous result verified on 07/02/2025 1559 on specimen/case [id number] called with component [facility] for procedure Troponin I, High Sensitivity, Initial with value 89 ng/L.Specimen (Source)Anatomical Location / LateralityCollection Method / VolumeCollection TimeReceived TimeBloodVenous blood specimen / Unknown Venipuncture / Nplrfrv9907/02/2025 4:34 PM EDT07/02/2025 4:43 PM EDT [facility] LAB - 07/02/2025 5:24 PM [...] performed using a different testing methodology at [facility] than at other [facility]. Direct result comparisons should only be made within the same method. Authorizing ProviderResult TypeResult StatusRajan Gallegos [facility] BLOOD ORDERABLESFinal ResultPerforming OrganizationAddressCity/State/ZIP CodePhone Number [facility] [address] [place] [address] * ECG 12 lead (07/02/2025 4:15 PM EDT) Only the most recent of2 resultswithin the time period is included. ComponentValueRef RangeTest MethodAnalysis TimePerformed AtPathologist Signature Ventricular Brpd09WZZCQUFHxhaok Atog78DKAAZGTHB Artlktrk114lePJZZXHE Ewbdltwv603 msMUSEQT Pucperek748aeBLUWPPW Calculation(Bazett)494msMUSEP Yevo79mkkpzngDTBJL [place]-36degreesMUSET Neir07yxwgokyLFRJMMH Vhsie41iplhmTBUFE Yqsqx652cpOWRXG Onset 114msMUSEP Trizxq482afLDQRP Vjvtxz558ouYVNZMGY Wkygnenqqx274kbYZGFFivplcgf (Source)Anatomical Location / LateralityCollection Method / VolumeCollection [...] and clinical correlation Confirmed by Estephanie Gomez ([id number]) on 07/03/2025 6:06:16 PM Procedure Note Estephanie [...] LAB HEMATOLOGY METHOD 07/02/2025 3:[address] [facility] LABnRBC0.00.0 - 0.0 /100 WBCs LAB HEMATOLOGY METHOD 07/02/2025 3:[address] [facility] LABRBC4.09(L)4.50 - 5.90 x10*6/uL LAB HEMATOLOGY METHOD 07/02/2025 3:[address] [facility] XBLHaihjslbag56.513.5 - 17.5 g/dL LAB HEMATOLOGY METHOD 07/02/2025 3:[address] [facility] REJTxclrxdtxk79.041.0 - 52.0 % LAB HEMATOLOGY METHOD 07/02/2025 3:[address] [facility] VAXIFH282(H)80 - 100 fL LAB HEMATOLOGY METHOD 07/02/2025 3:[address] [facility] SRKNOD92.5(H)26.0 - 34.0 pg LAB HEMATOLOGY METHOD 07/02/2025 3:[address] [facility] XOJQTHP94.532.0 - 36.0 g/dL LAB HEMATOLOGY METHOD 07/02/2025 3:[address] [facility] CDILOE22.211.5 - 14.5 % LAB HEMATOLOGY METHOD 07/02/2025 3:[address] [facility] HQGQgjyhltww677062 - 450 x10*3/uL LAB HEMATOLOGY METHOD 07/02/2025 3:[address] [facility] LABNeutrophils %68.040.0 - 80.0 % LAB HEMATOLOGY METHOD 07/02/2025 3:[address] [facility] LABImmature Granulocytes %, Automated0.30.0 - 0.9 % LAB HEMATOLOGY METHOD 07/02/2025 3:[address] [facility] LABComment:Immature Granulocyte Count (IG) includes promyelocytes, myelocytes and metamyelocytes but does not i nclude bands. Percent differential counts (%) should be interpreted in the context of the absolute cell counts (cells/UL).Lymphocytes %23.213.0 - 44.0 % LAB HEMATOLOGY METHOD 07/02/2025 3:[address] [facility] LABMonocytes %7.72.0 - 10.0 % LAB HEMATOLOGY METHOD 07/02/2025 3:[address] [facility] LABEosinophils %0.50.0 - 6.0 % LAB HEMATOLOGY METHOD 07/02/2025 3:[address] [facility] LABBasophils %0.30.0 - 2.0 % LAB HEMATOLOGY METHOD 07/02/2025 3:[address] [facility] LABNeutrophils Absolute4.231.20 - 7.70 x10*3/uL LAB HEMATOLOGY METHOD 07/02/2025 3:[address] [facility] LABComment:Percent differential counts (%) should be interpreted in the context of the absolute cell counts (ce lls/uL).Immature Granulocytes Absolute, Automated0.020.00 - 0.70 x10*3/uL LAB HEMATOLOGY METHOD 07/02/2025 3:[address] [facility] LABLymphocytes Absolute1.441.20 - 4.80 x10*3/uL LAB HEMATOLOGY METHOD 07/02/2025 3:[address] [facility] LABMonocytes Absolute0.480.10 - 1.00 x10*3/uL LAB HEMATOLOGY METHOD 07/02/2025 3:[address] [facility] LABEosinophils Absolute0.030.00 - 0.70 x10*3/uL LAB HEMATOLOGY METHOD 07/02/2025 3:[address] [facility] LABBasophils Absolute0.020.00 - 0.10 x10*3/uL LAB HEMATOLOGY METHOD 07/02/2025 3:[address] [facility] LABSpecimen (Source)Anatomical Location / LateralityCollection Method / VolumeCollection TimeReceived TimeBlood Venous blood specimen / UnknownVenipuncture / Cgkwxeh5107/02/2025 3:37 PM EDT 07/02/2025 3:37 PM EDT Narrative Authorizing ProviderResult TypeResult StatusCameron D Lemantonio DOLAB BLOOD ORDERABLESFinal ResultPerforming OrganizationAddressCity/State/ZIP CodePhone Number [facility] [address] [place] [address] * (ABNORMAL) Troponin I, High Sensitivity, Initial (07/02/2025 3:37 PM EDT) ComponentValueRef RangeTest MethodAnalysis TimePerformed AtPathologist SignatureTroponin I, High Fbnywtshbjy88(HH)0 - 20 ng/L LAB IMMUNOASSAY METHOD 07/02/2025 3:59 PM [facility] LABSpecimen (Source)Anatomical Location / LateralityCollection Method / VolumeCollection TimeReceived TimeBlood Venous blood specimen / UnknownVenipuncture / Fyezjcr5007/02/2025 3:37 PM EDT 07/02/2025 3:37 PM EDT Narrative [facility] - 07/02/2025 3:59 PM EDT [...] performed using a different testing methodology at [facility] than at other [facility]. Direct result comparisons should only be made within the same method. Authorizing ProviderResult TypeResult StatusCameron Becca El DOLAB BLOOD ORDERABLESFinal ResultPerforming OrganizationAddressCity/State/ZIP CodePhone Number [facility] [address] [place] [address] * (ABNORMAL) Protime-INR (07/02/2025 3:37 PM EDT)ComponentValueRef RangeTest MethodAnalysis TimePerformed AtPathologist BiuywhgcuEwhbpak61.8(H)9.8 - 12.4 seconds LAB COAGULATION METHOD 07/02/2025 3:[address] [facility] LABINR1.3(H)0.9 - 1.1 LAB COAGULATION METHOD 07/02/2025 3:[address] [facility] LABSpecimen (Source)Anatomical Location / LateralityCollection Method / VolumeCollection TimeReceived TimeBlood Venous blood specimen / UnknownVenipuncture / Uyflamt0507/02/2025 3:37 PM EDT 07/02/2025 3:37 PM EDT Narrative Authorizing ProviderResult TypeResult StatusCamerokonrad Gallegos [facility] BLOOD ORDERABLESFinal ResultPerforming OrganizationAddressCity/State/ZIP CodePhone Number [facility] [address] [place] [address] * (ABNORMAL) Comprehensive Metabolic Panel (07/02/2025 3:37 PM EDT)Component ValueRef RangeTest MethodAnalysis TimePerformed AtPathologist SignatureGlucose 9774 - 99 mg/dL LAB CHEMISTRY METHOD 07/02/2025 3:[address] [facility] IKCLqtkwh516669 - 145 mmol/L LAB CHEMISTRY METHOD 07/02/2025 3:[address] [facility] LABPotassium4.13.5 - 5.3 mmol/L LAB CHEMISTRY METHOD 07/02/2025 3:[address] [facility] SZDMczxhbfp09149 - 107 mmol/L LAB CHEMISTRY METHOD 07/02/2025 3:[address] [facility] DYFOzzjkmfgzuj2199 - 32 mmol/L LAB CHEMISTRY METHOD 07/02/2025 3:[address] [facility] LABAnion Ezt8715 - 20 mmol/L LAB CHEMISTRY METHOD 07/02/2025 3:[address] [facility] LABUrea Pwjzncmq627 - 23 mg/dL LAB CHEMISTRY METHOD 07/02/2025 3:[address] [facility] LABCreatinine0.950.50 - 1.30 mg/dL LAB CHEMISTRY METHOD 07/02/2025 3:[address] [facility] LABeGFR>90>60 mL/min/1.73m*2 LAB CHEMISTRY METHOD 07/02/2025 3:[address] [facility] LABComment: Calculations of estimated GFR are performed using the 2020 CKD-EPI Study Refit equation without therace variable for the IDMS-Traceable creatinine methods. https://jasn.asnjournals.org/content//ASN.1950154744 Calcium9.08.6 - 10.3 mg/dL LAB CHEMISTRY METHOD 07/02/2025 3:[address] [facility] LABAlbumin4.13.4 - 5.0 g/dL LAB CHEMISTRY METHOD 07/02/2025 3:[address] [facility] LABAlkaline Fktpgegbyem1026 - 120 U/L LAB CHEMISTRY METHOD 07/02/2025 3:[address] [facility] LABTotal Protein6.0(L)6.4 - 8.2 g/dL LAB CHEMISTRY METHOD 07/02/2025 3:[address] [facility] IZUDHL32(H)9 - 39 U/L LAB CHEMISTRY METHOD 07/02/2025 3:[address] [facility] LABBilirubin, Total1.00.0 - 1.2 mg/dL LAB CHEMISTRY METHOD 07/02/2025 3:[address] [facility] EFEFDR0451 - 52 U/L LAB CHEMISTRY METHOD 07/02/2025 3:[address] [facility] LABComment:Patients treated with Sulfasalazine may generate falsely decreased results for ALT.Specimen (Source) Anatomical Location / LateralityCollection Method / VolumeCollection Time Received TimeBloodVenous blood specimen / UnknownVenipuncture / Unknown 07/02/2025 3:37 PM EDT07/02/2025 3:37 PM EDT Narrative Authorizing ProviderResult TypeResult StatusCamdallin SARMIENTOAB BLOOD ORDERABLESFinal ResultPerforming OrganizationAddressCity/State/ZIP CodePhone Number [facility] [address] [place] [address] * XR chest 1 view (07/02/2025 3:32 PM EDT)Anatomical RegionLateralityModality Thoracic, ChestComputed RadiographySpecimen (Source)Anatomical Location / LateralityCollection Method / VolumeCollection TimeReceived Time07/02/2025 3:57 PM EDT07/02/2025 3:57 PM EDT Impressions 07/02/2025 3:56 PM EDT 1. No evidence of acute cardiopulmonary process. ? MACRO: None ?? Signed by: Fidel Trevino 07/02/2025 3:56 PM Dictation workstation: ?? [id number] Narrative 07/02/2025 3:56 PM EDT Interpreted By: Fidel Trevino, STUDY: XR CHEST 1 VIEW; ??07/02/2025 3:32 pm ?? INDICATION: Signs/Symptoms:chest pain. ? COMPARISON: 09/04/2023 ?? ACCESSION NUMBER(S): [id number] ?? ORDERING CLINICIAN: RAJAN GALLEGOS ?? FINDINGS: [...] INDICATION: Signs/Symptoms:chest pain. COMPARISON: 09/04/2023 ACCESSION NUMBER(S): [id number] ORDERING CLINICIAN: RAJAN GALLEGOS FINDINGS: CARDIOMEDIASTINAL SILHOUETTE: Cardiomediastinal silhouette is mildly enlarged. LUNGS: Lungs are clear. ABDOMEN: No remarkable upper abdominal findings. BONES: No acute osseous changes. Prior ACDF partially visualized. IMPRESSION: 1. No evidence of acute cardiopulmonary process. MACRO: None Signed by: Fidel Trevino 07/02/2025 3:56 PM Dictation workstation: [id number] Authorizing ProviderResult TypeResult StatusCamerokonrad Gallegos [facility] XR PROCEDURESFinal Result * Echocardiogram (04/10/2024) Narrative 04/10/2024 Ordered by an unspecified provider. Authorizing ProviderResult TypeResult StatusGeneric Provider ScanningCV ECHO PROCEDURESFinal Result * Lipid Panel (10/11/2023 5:24 PM EST)ComponentValueRef RangeTest MethodAnalysis TimePerformed AtPathologist WxxueyadqDplprgpobds7870 - 199 mg/dL LAB CHEMISTRY METHOD 10/12/2023 12:18 [facility] LABComment: ?Age ?Desirable ?? Borderline High ?? [...] be performed immediately prior to Metamizole dosing. HDL-Lcaemezpmhm35.0mg/dL LAB CHEMISTRY METHOD 10/12/2023 12:18 [facility] LABComment: Age ? Very Low ?? Low ? Normal ?High ?? 0-19 Y < 35 < 40 40-45 ---- 20-24 Y ---- < 40 >45 ---- >24 Y ---- < 40 40-60 >60 Cholesterol/HDL Ratio1.9 LAB CHEMISTRY METHOD 10/12/2023 12:18 [facility] LABComment: Ref Values Desirable < 3.4 High Risk > 5.0 LDL Zqkemcnhcl10<=99 mg/dL LAB CHEMISTRY METHOD 10/12/2023 12:18 [facility] LABComment: ?Near ?? Borderline ?AGE ?Desirable ??Optimal ?High ? High ? Very High 0-19 Y 0 - 109 --- 110-129 >/= 130 ---- 20-24 Y 0 - 119 --- 120-159 >/= 160 ---- >24 Y 0 - 99 100-129 130-159 160-189 >/=190 QCGV066 - 40 mg/dL LAB CHEMISTRY METHOD 10/12/2023 12:18 [facility] YAZAxjrzjzzfpzje7160 - 149 mg/dL LAB CHEMISTRY METHOD 10/12/2023 12:18 [facility] LABComment: Age ? Desirable ?? Borderline High [...] immediately prior to Metamizole dosing. Non HDL Iprzxqtfuxr486 - 149 mg/dL LAB CHEMISTRY METHOD 10/12/2023 12:18 [facility] LABComment: ?Age ? Desirable ?? Borderline High ?? High ? Very High 0-19 Y 0 - 119 120 - 144 >/= 145 >/= 160 20-24 Y 0 - 149 150 - 189 >/= 190 ---- >24 Y 30 mg/dL above LDL Cholesterol goal Specimen (Source)Anatomical Location / LateralityCollection Method / Volume Collection TimeReceived TimeBloodVenous blood specimen / UnknownVenipuncture / Ycjtjth0910/11/2023 5:24 PM EST10/11/2023 5:28 PM EST Narrative Authorizing ProviderResult TypeResult StatusJeff Aguilera DOLAB BLOOD ORDERABLESFinal ResultPerforming OrganizationAddressCity/State/ZIP CodePhone Number [facility] [address] [place] [address] from Last 3 Months or Most Recently Relevant to Health Maintenance Insurance * Guarantor: Syed Howard Yonathan TypeRelation to PatientDate of BirthPhone Billing AddressPersonal/XwrkzqGbui1965 [place] [address] * Guarantor: LeeSyed Yonathan TypeRelation to PatientDate of BirthPhone Billing AddressPersonal/FyjxjgHnfb1965 [place] [address] MemberSubscriberPlan / Payer (Effective 2019-Present)Name:Syed Howard Konrad Relation to Subscriber:SelfName:Syed Howard Konrad Payer ID:Not on file Type:Not on file Address: [address] [place] [id number] Advance Directives For more information, please contact: [phone] (Available ) * Full Code (Latest Code Status on File) Date ActivatedDate CxjfllzhdjzRkqzldsy48/20/2023 8:24 PMQuestionAnswerComments Plan of Care:* Code Status Discussion Not Completed Decision Maker:* Provider Rationale:* Patient condition does not warrant discussion * Full Code Date ActivatedDate IkdiedualjiUpigxblt71/13/2023 7:07 PM09/06/2023 3:29 PM QuestionAnswerCommentsPlan of Care:* Code Status Discussion Completed Decision Maker:* Proxy Care Teams Team MemberRelationshipSpecialtyStart DateEnd Date Nelida Stock, BAR EXAMINER-LOG LOADER HELPER Didi Muro [facility] [address] PCP - Ialewfp20/20/23
--- OUTSIDE RECORDS SUMMARY | 2025-08-12 14:56 | XMS_ITS | Encounter Summary ---
Author Organization [facility] Address [address] [place] [address] Care Team Providers Care Manager Of Distribution Name Role Phone Slim Mosher MD Primary Care Provider [phone] Encounter Details DateTypeDepartmentCare Team (Latest Contact Info)Kqtkvfkojgi89/08/2025Orders Only [facility] Vascular Lab [address] [place] [address] Bettina Gordon RN Acute on chronic [...] file12/14/2023Sex and Gender InformationValueDate RecordedSex Assigned at NpmhuVana15/01/2025 7:22 AM EDTLegal UtmCwfs0704/20/2022 11:54 PM EDTGender XfyoxmroPfsp73/01/2025 7:22 AM EDTSexual OrientationHeterosexual or Straight 07/23/2025 [...] seen by a Cardiology Nurse Practitioner at [facility]. Lab order faxed to and appointment scheduled with [employer]IVE [employer]ATING in the cardiology clinic. documented in this encounter Plan of Treatment DateTypeDepartmentCare Team (Latest Contact Info)Lwvmsxzamwu64/30/2025 9:40 AM EDTFollow[facility] [address] [place] [address] Jessica Rausch, PROTECTIVE CLOTHING ISSUER [address] [place] [address] NameTypePriorityAssociated DiagnosesOrder ScheduleBasic metabolic panelLab Routine Acute on chronic diastolic heart failure (CMS/HCC) Expected: 07/30/2025 (Approximate), Expires: 07/30/2026documented as of this encounter Visit Diagnoses Diagnosis Acute on chronic diastolic heart failure (CMS/HCC)- Primary Acute on chronic diastolic heart failure documented in this encounter Care Teams Team MemberRelationshipSpecialtyStart DateEnd Date Slim Mosher MD [address] [place] [address] PCP - GeneralFamily Medicine03/27/2310documented as of this encounter
--- OUTSIDE RECORDS SUMMARY | 2025-08-12 14:56 | XMS_ITS | Clinical Summary ---
Author Organization [facility] Address [address] [place], [place] [address] Care Team Providers Care Teacher Vocal Name Role Phone Taina Colindres MD Primary Care Provider [phone] Allergies Active AllergyReactionsCriticalityNoted DateCommentsBeesOther: See Comments 12/26/2012 Mild, swelling,reddness ColchicineOther: See Mifhfbok16/13/2013 Sleepiness Medications MedicationSigDispense QuantityRefillsLast FilledStart DateEnd DateStatus [...] InformationValueDate RecordedSex Assigned at BirthNot on fileLegal CsqXzap7512/04/2012 4:09 PM ESTGender IdentityNot on fileSexual OrientationNot on file Last Filed Vital Signs Vital SignReadingTime TakenCommentsBlood Vfdergdd983/8704 2:17 PM EDT Wvyke059801/23/2014 2:17 PM SFLNabwcpupsvb58.7 ??C (98.1 ??F)01/23/2014 2:17 PM EDTRespiratory Rate--Oxygen Jleuguhudk35%12/26/2012 11:09 AM ESTInhaled Oxygen Concentration--Zjntli33.6 kg (197 lb 9.6 oz)01/23/2014 2:17 PM YBWPdtnld171.3 cm (6' 2.92 )01/23/2014 2:17 PM EDTBody Mass Index24.75001/23/2014 2:17 PM EDT Plan of Treatment Health MaintenanceDue DateLast DoneCommentsAnxiety Owjtslajf40/24/1984Depression Udctchzvn21/24/1984HIV Ksrtuceqd54/24/1984Hepatitis C Lbpwrnxth24/24/1984 DTaP,Tdap,Td Vaccine (1 - Tdap)1985Hepatitis B Vaccine (1 of 3 - 19+ 3- dose series)1985Lipid Cojhpeivz57/24/2001CT Nffskacwmwqi54/24/2011 Cologuard (FIT-DNA)07/16/20112135Uphwizjhqhp45/24/2011Colorectal Cancer Screening 2011Diabetes Krmhjgoql19/24/2011Fecal Occult Blood2011Prostate Cancer Screening Nekdsxzseh01/24/0167Rknbhjghzcnhs95/24/2011Pneumococcal Vaccine: 50+ (1 of 1 - PCV)2016Shingrix Vaccine (1 of 2)2016Covid-19 Vaccine (1 - 2024- season)2025Influenza Vaccine (#1)2025 Insurance Care Teams Team MemberRelationshipSpecialtyStart DateEnd Taina Colindres MD [address] [place] [address] PCP - GeneralFamily Medicine12/04/12
--- OUTSIDE RECORDS SUMMARY | 2025-08-12 14:56 | XMS_ITS | Continuity of Care Document ---
Author Organization [facility]. Address [address] [place] [address] Phone [phone] Care Team Providers Care Production Miner Name Role Phone Taina Colindres Care Team Information Uniform Force Captain [phone] Assessments Date Code Description Provider 06/28/2019 N28.0 Ischemia and infarction of k augustinaney Don Hunter MD 06/28/2019 E87.6 Hypokalemia Tish Wilson 06/28/2019 I50.9 Heart failure, unspecified S ankur Hunter MD 06/28/2019 R74.8 Abnormal levels of other ser um enzymes Don Hunter MD
--- OUTSIDE RECORDS SUMMARY | 2025-08-12 14:56 | XMS_ITS | Clinical Summary ---
Author Organization [facility] Address [address] [place] [address] Care Team Providers Care Deck Mechanic Name Role Phone Nelida Stock SECURITY ATTENDANT-Bi Primary Care Provider Allergies Active AllergyReactionsCriticalityNoted DateCommentsBee Venom Protein (Honey Bee)Pjfqdrr9209/05/2023olchicineOther,Vlgrxju6010/04/2013 Sleepiness Sleepiness Sleepiness Sleepiness Pollen TblelbpeBylqpdx94/14/2023 Medications MedicationSigDispense QuantityRefillsLast FilledStart DateEnd DateStatus buPROPion [...] the morning and at bedtime. 180 tablet 6Active metoprolol succinate XL (Toprol-XL) 25 mg 24 hr tablet Indications:Paroxysmal atrial fibrillation (CMS/HCC)Take 1 tablet (25 mg) by mouth in the morning. Do not crush or chew. 90 tablet ctive Additional Information Patient not taking.Reported on 08/12/2025 dofetilide (Tikosyn) 250 mcg capsule Indications:PAF (paroxysmal atrial fibrillation) (CMS/HCC)TAKE 1 CAPSULE (250 MCG) BY MOUTH TWO TIMES DAILY. 60 capsule 1105Active pantoprazole (ProtoNix) 40 mg EC tablet Take 40 mg by mouth in the morning.5Active furosemide (Lasix) 40 mg tablet Indications:Chronic diastolic heart failure (CMS/HCC)Take 1 tablet (40 mg) by mouth two times daily. Can take an additional tablet as needed 225 tablet 6Active furosemide (Lasix) 40 mg tablet Indications:Chronic diastolic heart failure (CMS/HCC)Take 1 tablet (40 mg) by mouth once daily as directed. In addition to 20mg tablets daily = 60mg daily 90 tablet Discontinued(Reorder) furosemide (Lasix) 20 mg tablet Indications:Chronic diastolic heart failure (CMS/HCC)Take 1 tablet (20 mg) by mouth once daily as directed. In addition to 40mg tablets = 60mg daily 90 tablet Discontinued Active Problems ProblemNoted DateDiagnosed TfetBljdhewb71/21/9939Bodxibty27/21/2025Fatigue 08/12/2025Night sweat08/12/2025ervical hdpkgabykxjnh76/23/2025Left elbow pain 07/15/2025hest pain07/03/2025ute stress pxmgvulh33/10/9122Bdoaxpd19/10/2025 Colon cancer lbpyalqxk42/10/2025ute ischemia of small intestine due to thrombosis of mesenteric vein10/08/2024trial svmaasohtuxx67/17/2024History of hfbfjl9110/08/2024Ischemic bowel szxozfk3510/08/2024S/P cervical discectomy 10/08/2024Superior mesenteric artery grhaawewby60/17/2024trial flutter 08/13/2024cute abdominal pain2024Neck pain06/12/2024t increased risk of exposure to COVID-19 virus04/18/2024trial flutter with rapid ventricular /27/1973Ctrg96/27/2024Gouty bptkeznha74/27/6306Efodhote98/27/2024 Ischemia and infarction of zurfrj9504/18/2024Left arm yjdmnnqp85/27/2024Left shoulder pain04/18/2024Macrocytosis without cliilg4004/18/2024Numbness of fingers 04/18/2024Shortness of vcuauu1204/18/2024cid yafhay06rthritis arpal tunnel cgamiygv82hanges in skin qqbsxrm13DD (degenerative disc disease), hnnazhwt08/08/2023 09/29/2023ysphagia, mhyxkmtivni07ystonia musculorum lzepybnsj52MyalgiaRight sided weakness Spasmodic bnpvyvibbjc53Stroke due to embolism of basilar onchgh58Impairment of sfihmgh6309/20/2023 09/29/2023Stroke due to occlusion of basilar iexsuh18Edema /cute on chronic diastolic heart tgsuoxz36 Acute pulmonary edema Overview (09/29/2023): Last Assessment & Plan: Findings on chest x-ray and CT abdomen suggestive of vascular congestion and heart failure. Previous history of heart failure. Reviewed right left heart catheterization from [facility] in 2017. Diastolic heart failure at that [...] unfortunately his mother's side she is a Bengali immigrant and does not know much about her family history. Elevated Overview (09/29/2023): Last Assessment & Plan: Trivial elevation, unclear etiology Possibly from renal infarct? D-dimer negative, unlikely pulmonary embolism Suspect related to diastolic dysfunction and decompensated diastolic heart failure. No coronary artery disease based on heart catheterization from 12/2016 only with myocardial bridging segments. Renal infarctionHypertensionCHF (congestive heart failure)Coronary-myocardial bridgeAortic root dilationLeft atrial enlargement Encounters DateTypeDepartmentCare PopiDoyxajebjfz76/21/2025 1:40 PM EDTFollow-Up [facility] [place] [address] [place] [address] Jessica Rausch CNP Paroxysmal atrial fibrillation (CMS/HCC) (Primary Dx); Chronic diastolic heart failure (CMS/HCC)08/12/2025Orders Only [facility] [address] [place] [address] Alecia Rodrigues MA Acute on chronic diastolic heart failure (CMS/HCC) (Primary Dx)07/30/2025Orders Only [facility] [place] [facility] [address] [place] [address] Bettina Gordon RN Acute on chronic diastolic heart failure (CMS/HCC) (Primary Dx)07/23/2025 8:30 AM EDT - 07/23/2025 12:00 PM EDTSurgery [facility] [address] [place] [address] Jose Miguel Spivey MD Ablation a-fib w/ pvi [40967 (CPT??)]07/23/2025 8:24 AM EDTAnesthesia Event [facility] [address] [place] [address] [facility] 07/23/2025 7:22 AM EDT - 07/23/2025 2:25 PM EDTHospital Encounter [facility] [address] [place] [address] Jose Miguel Spivey MD Paroxysmal atrial fibrillation ([facility]) Discharge Disposition: Home or Self Care ()07/23/20252506Xwqzzv01/19/2025Telephone [facility] [address] [place] [address] Alecia Rodrigues MA 07/09/20255480Jueyyh78/11/2025Refill [facility] [address] [place] [address] Jose Miguel Spivey MD PAF (paroxysmal atrial fibrillation) ([facility]/HCC)07/01/2025Orders Only [facility] [address] [place] [address] Alecia Rodrigues MA Paroxysmal atrial fibrillation (CMS/HCC) (Primary Dx)06/30/2025Telephone [facility] [address] [place] [facility] [address] Alecia Rodrigues MA 06/23/2025Orders Only [facility] [place] [facility] [address] [place] [address] Felipe Nathan MD 06/20/2025 8:00 AM EDTAncillary Procedure [facility] [address] [place] [address] Awareness of cpjgxusmzx39/27/2025Refill [facility] [address] [place] [facility] [address] Sabina Lopez MA Chronic diastolic heart failure (CMS/HCC)05/20/2025 6:00 PM EDTAncillary Procedure [facility] [address] [place] [address] Awareness of heartbeatsfrom Last 3 Months Family [...] file12/14/2023Sex and Gender InformationValueDate RecordedSex Assigned at [employer]29/01/2025 7:22 AM EDT Legal WoaHhtd2204/20/2022 11:54 PM EDTGender WxctrlpvLrac21/01/2025 7:22 AM EDT Sexual OrientationHeterosexual or Zyeawwda92/01/2025 7:22 AM EDT Last Filed Vital Signs Vital SignReadingTime TakenCommentsBlood Qrwqgefy697/7808/12/2025 1:42 PM EDT Bwfuj709408/12/2025 1:42 PM KTDEexsebhgyrs56 ??C (96.8 ??F)07/23/2025 11:15 AM EDT Respiratory Zvdq4359 12:15 PM EDTOxygen Ikiuwikvsr62%08/12/2025 1:42 PM EDTInhaled Oxygen Concentration--Gxzcyc517 kg (225 lb)08/12/2025 1:42 PM EDT Uyqsxj564.5 cm (6' 3 )08/12/2025 1:42 PM EDTBody Mass Index28.121 1:42 PM EDT Plan of Treatment DateTypeDepartmentCare Team (Latest Contact Info)Aeaurfqtkpx05/30/2025 9:40 AM EDTFollow-Up [facility] [address] [place] [address] Jessica Rausch, PHILOSOPHY INSTRUCTOR [address] [place] [address] Health MaintenanceDue DateLast DoneCommentsCT Nizjxumvgixh1966FIT-DNA 1966FIT1966FOBT07/16/19669090Ovrowevgbmfbi1966Depression Screening 1978Pneumococcal Vaccine: Pediatrics (0 to 5 Years) and At-Risk Patients (6 to 64 Years) (1 of 2 - PCV)1985Adult Vhjgbwl2807/16/1988Colonoscopy /Colorectal Cancer Obtnwkypy29/14/2024OVID-19 Vaccine ( season)509/, 10/21/2021, 01/01/2021, Additional history existsInfluenza Vaccine (#1)06/23/2025Hepatitis B TbzpujfkUqsqspprz37/30/2008, 11/05/2007, 10/04/2007Zoster JdrfhnquXdhzmwejn74/04/2024, 01/09/2024HIB Vaccines Aged OutNo longer eligible based [...] ImplantedTypeAreaManufacturerDevice IdentifierShelf Expiration DateModel / Serial / LotMonitor,Cardiac,Lux,Dxii+[facility] - [id number] - [id number] Implanted:Qty: 1 on 09/16/2024 by Jose Miguel Spivey MD at [facility] HospitalImplantable Loop RecorderBosMahnomen Health Center01/28/2026M312 / [id number] / Procedures Procedure NamePriorityDate/TimeAssociated DiagnosisCommentsECG 12 LEAD UNIT UHWDRETMXHctdila09/21/2025 2:06 PM EDT Paroxysmal atrial fibrillation (CMS/HCC) ECG 12-NEPDZaibknb46/01/2025 11:34 AM EDT ABLATION A-FIB W/ ZKUQbdwees55/01/2025 11:07 AM EDT Paroxysmal atrial fibrillation (CMS/HCC) ACTIVATED CLOTTING QCTQBynpukh49/01/2025 10:58 AM EDT KHMDDEVCQNFtilmjw33/01/2025 10:32 AM EDT ABAKBIJHNDAVuxmqtn39/01/2025 10:32 AM EDT HIGH SENSITIVITY TROPONIN HGonhjix75/01/2025 10:32 AM EDT BILIRUBIN, KFJYHIKarojzw90/01/2025 10:32 AM EDT BILIRUBIN, NYPXZIftiars11/01/2025 10:32 AM EDT LACTATE YLEQJXBSEXYSCJqkpzhd97/01/2025 10:32 AM EDT ACTIVATED CLOTTING BLOKDmbhnle51/01/2025 10:22 AM EDT ACTIVATED CLOTTING UJZPQudncvc50/01/2025 10:03 AM EDT ACTIVATED CLOTTING XQGOVxmwkoo72/01/2025 9:43 AM EDT ANESTHESIA ARTERIAL LINE ZEHKCCFJMOjcatnr15/01/2025 8:56 AM EDT ND AN ELECTIVE ENDOTRACHEAL LTLYFCOzftpur17/01/2025 8:46 AM EDT ECG 12-MHHOSzqlker91/01/2025 8:31 AM EDT POCT GLUCOSE METER UNSOLICITED JOXYYJTBnvywxf82/01/2025 8:00 AM EDT PROTIME-VRTChmsbjb61/01/2025 7:54 AM EDT CARDIAC DEVICE CHECK CHECK - TRYYJGXsgznlg93/04/2025 9:40 AM EDT Awareness of heartbeats CARDIAC DEVICE CHECK - REMOTE - LOOP RECORDER (ILR)Ctangro8106/23/2025 12:00 AM EDTCARDIAC DEVICE CHECK CHECK - FSLEQGSibqbou80/07/2025 2:54 PM EDT Awareness of heartbeats CARDIAC DEVICE CHECK CHECK - OXOGAJQkitqfw40/22/2025 12:47 PM EDT Awareness of heartbeats from Last 3 Months Results * ECG 12 lead unit performed (08/12/2025 2:06 PM EDT)Specimen (Source)Anatomical Location / LateralityCollection Method / VolumeCollection TimeReceived Time Narrative Authorizing ProviderResult TypeResult StatusJessica SMITH ORDERABLES Final Result * ECG 12 lead (07/23/2025 11:34 AM EDT) Only the most recent of2 resultswithin the time period is included. ComponentValueRef RangeTest MethodAnalysis TimePerformed AtPathologist Signature Ventricular Pfjk50JKSLZ MUSEAtrial Zsag91ISRLZ MUSEPR Mzorxklh217kjEN MUSEQRS FFPEUCSY770iqNM MUSEQT Ciakjoet912qeGS MUSEQTC CALCULATION(BAZETT)510msGE MUSEP Hgkv47tfxwhxhHH KOJPF-Slkf-63puerdjlMK MUSET Wave Kvxp656wsxkopmIL MUSESpecimen (Source)Anatomical Location / LateralityCollection Method / VolumeCollection TimeReceived Time07/23/2025 11:29 AM EDT1 4:37 PM EDT Impressions GE MUSE - 07/23/2025 4:37 PM EDT Normal sinus rhythm Incomplete right bundle branch block ST & T wave abnormality, consider anterolateral ischemia Prolonged QT Abnormal ECG When compared with ECG of 23-JUL-2025 08:17, No significant change was found Confirmed by Demetrice NATHAN, FELIPE Alaniz (57) on 07/23/2025 4:37:20 PM Narrative Procedure Note Felipe Nathan MD - 07/23/2025 IMPRESSION: Normal sinus rhythm Incomplete right bundle branch block ST & T wave abnormality, consider anterolateral ischemia Prolonged QT Abnormal ECG When compared with ECG of 23-JUL-2025 08:17, No significant change was found Confirmed by Demetrice NATHAN SAMER J. (57) on 07/23/2025 4:37:20 PM Authorizing ProviderResult TypeResult StatusJose Miguel ZABALA ORDERABLESFinal ResultPerforming OrganizationAddressCity/State/ZIP CodePhone Number GE MUSE * ABLATION A-FIB W/ PVI (07/23/2025 11:07 AM EDT)Anatomical RegionLaterality ModalityOtherSpecimen (Source)Anatomical Location / LateralityCollection Method / VolumeCollection TimeReceived Time Narrative 07/23/2025 11:08 AM EDT Table formatting from the original result was not included. ATRIAL FIBRILLATION ABLATION PROCEDURE NOTE DATE OF PROCEDURE: ??07/23/2025 PERFORMING PHYSICIAN: Dr. Jose Miguel Spivey PULP PRESS TENDER: LORIN CONSENT: Patient NAME OF THE PROCEDURE: [...] Miguel Spivey MD Cardiac Electrophysiology ?? Authorizing ProviderRefugio Spivey [facility] [place]LECTROP[place]OLOGY PROCEDURESFinal Result * Activated clotting time (07/23/2025 10:58 AM EDT) Only the most recent of4 resultswithin the time period is included. ComponentValueRef RangeTest MethodAnalysis TimePerformed AtPathologist Signature Activated Clotting Lskz69699 - 152 07/23/2025 11:00 AM [facility])Specimen (Source)Anatomical Location / LateralityCollection Method / VolumeCollection TimeReceived TimeBloodVenous blood specimen / Xocfywl7807/23/2025 10:58 AM EDT1 11:00 AM EDT Narrative Authorizing ProviderResemiliano BOTELLO POINT OF CARE TEST DOCKED DEVICE UNSOLICITED RESULTSFinal ResultPerforming OrganizationAddress City/State/ZIP CodePhone Number [facility]) [address] [place] [address] * (ABNORMAL) High Sensitivity Troponin I (07/23/2025 10:32 AM EDT)ComponentValue Ref RangeTest MethodAnalysis TimePerformed AtPathologist SignatureHigh Sensitivity Troponin I84(HH)<20 ng/L1 12:25 PM [facility])Specimen (Source)Anatomical Location / LateralityCollection Method / VolumeCollection TimeReceived TimeBloodVenous blood specimen / UnknownArterial Line / Lezqluw2407/23/2025 10:32 AM EDT1 10:32 AM EDT Narrative Authorizing Selam BOTELLO BLOOD ORDERABLES Final ResultPerforming OrganizationAddressCity/State/ZIP CodePhone Number [facility]) [address] [place] [address] * (ABNORMAL) Hemoglobin (07/23/2025 10:32 AM EDT)ComponentValueRef RangeTest MethodAnalysis TimePerformed AtPathologist JjojehiejWotcwniudk00.2(L)13.0 - 17.0 g/dL07/23/2025 10:53 AM [facility] ([facility])Specimen (Source) Anatomical Location / LateralityCollection Method / VolumeCollection Time Received TimeBloodVenous blood specimen / UnknownArterial Line / Unknown 07/23/2025 10:32 AM EDT1 10:32 AM EDT Narrative Authorizing ProviderResult TypeResult StatusPamichelle Spivey MDLAB BLOOD ORDERABLES Final ResultPerforming OrganizationAddressCity/State/ZIP CodePhone Number [facility]) [address] [place] [address] * (ABNORMAL) Lactate dehydrogenase (07/23/2025 10:32 AM EDT)ComponentValueRef RangeTest MethodAnalysis TimePerformed AtPathologist XwurohbjpFE402(L)140 - 271 U/L1 11:11 AM [facility] ([facility])Specimen (Source) Anatomical Location / LateralityCollection Method / VolumeCollection Time Received TimeBloodVenous blood specimen / UnknownArterial Line / Unknown 07/23/2025 10:32 AM EDT1 10:32 AM EDT Narrative Authorizing ProviderResult TypeResult StatusJose Miguel BOTELLO BLOOD ORDERABLES Final ResultPerforming OrganizationAddressCity/State/ZIP CodePhone Number [facility]) [address] [place] [address] * Haptoglobin (07/23/2025 10:32 AM EDT)ComponentValueRef RangeTest Method Analysis TimePerformed AtPathologist NfcvbxiuuVljbhatonla677.032.0 - 197.0 mg/dL07/23/2025 1:17 PM [facility])Comment:Testing performed using a new methodology, turbidimetry. Normal ranges have been updated. Old normal range was 26-164 mg/dL.Specimen (Source)Anatomical Location / LateralityCollection Method / VolumeCollection TimeReceived TimeBloodVenous blood specimen / UnknownArterial Line / Ozocprf8907/23/2025 10:32 AM EDT 07/23/2025 10:32 AM EDT Narrative Authorizing ProviderResult TypeResult StatusJose Miguel BOTELLO BLOOD ORDERABLES Final ResultPerforming OrganizationAddressCity/State/ZIP CodePhone Number [facility] ([facility]) [address] [place] [address] * Bilirubin, direct (07/23/2025 10:32 AM EDT)ComponentValueRef RangeTest Method Analysis TimePerformed AtPathologist SignatureBilirubin, Direct0.10 - 0.2 mg/dL07/23/2025 11:11 AM EDTACOMA[facility] ([facility])Specimen (Source) Anatomical Location / LateralityCollection Method / VolumeCollection Time Received TimeBloodVenous blood specimen / UnknownArterial Line / Unknown 07/23/2025 10:32 AM EDT1 10:32 AM EDT Narrative Authorizing ProviderResult TypeResult Francia BOTELLO BLOOD ORDERABLES Final ResultPerforming OrganizationAddressCity/State/ZIP CodePhone Number [facility] ([facility]) [address] [facility] [place] [address] * Bilirubin, total (07/23/2025 10:32 AM EDT)ComponentValueRef RangeTest Method Analysis TimePerformed AtPathologist SignatureTotal Bilirubin0.60.3 - 1.0 mg/dL07/23/2025 11:11 AM [facility] ([facility])Specimen (Source) Anatomical Location / LateralityCollection Method / VolumeCollection Time Received TimeBloodVenous blood specimen / UnknownArterial Line / Unknown 07/23/2025 10:32 AM EDT1 10:32 AM EDT Narrative Authorizing ProviderResult TypeResult Francia BOTELLO BLOOD ORDERABLES Final ResultPerforming OrganizationAddressCity/State/ZIP CodePhone Number [facility] ([facility]) [address] [place] [address] * ANESTHESIA ARTERIAL LINE PLACEMENT (07/23/2025 8:56 [...] procedure well with no complications. Staffing Performed: resident/INVESTIGATOR CASH SHORTAGE/CAA Anesthesiologist: Luis Alberto David MD Resident/INVESTIGATOR CASH SHORTAGE: Jarret Perez MD Performed by: Jarret Perez MD Authorized by: Luis Alberto David MD ?? Authorizing ProviderResult TypeResult Teresita FALCON ORDERABLESFinal Result * ND AN ELECTIVE ENDOTRACHEAL AIRWAY (07/23/2025 8:46 AM EDT) Luis Alberto Gerard MD - 07/23/2025 8:46 AM EDT Luis Alberto David MD 07/23/2025 12:28 PM Airway Date/Time: 07/23/2025 8:46 AM Reason: elective Airway not difficult General Information and Staff Patient location during procedure: [place] Anesthesiologist: Luis Alberto David MD Resident/INVESTIGATOR CASH SHORTAGE/CAA: Jarret Perez MD Performed: resident/INVESTIGATOR CASH SHORTAGE/CAA Patient Condition Indications for airway management: anesthesia [...] other approaches attempted: 0 Authorizing ProviderResult TypeResult StatusLuis Alberto FALCON ORDERABLESFinal Result * POCT glucose meter (07/23/2025 8:00 AM EDT)ComponentValueRef RangeTest Method Analysis TimePerformed AtPathologist SignatureGlucose QAL98813 - 105 mg/dL 07/23/2025 8:15 AM [facility] ([facility])Comment:ngrothaSpecimen (Source)Anatomical Location / LateralityCollection Method / VolumeCollection TimeReceived TimeBloodCapillary blood specimen / Djyxrhn5907/23/2025 8:00 AM EDT 07/23/2025 8:15 AM EDT Narrative [facility] ([facility]) - 07/23/2025 8:15 AM EDT Waived Testing in the ED is performed under the ED CLIA certificate #[id number]. Authorizing ProviderResult TypeResult StatusPamichelle BOTELLO BLOOD ORDERABLES Final ResultPerforming OrganizationAddressCity/State/ZIP CodePhone Number [facility] ([facility]) [address] [place] [address] * Protime-INR (07/23/2025 7:54 AM EDT)ComponentValueRef RangeTest MethodAnalysis TimePerformed AtPathologist SpddozmoxEnkeaca72.912.3 - 14.8 Xljhhhp9607/23/2025 8:23 AM [facility] ([facility])INR1.070.90 - 1.1010 8:23 AM EDT [facility] ([facility])Comment: ACCCP RECOMMENDED INR FOR WARFARIN THERAPY CONDITION ?INR [...] TimeReceived TimeBloodVenous blood specimen / UnknownVenipuncture / Huvupuy9307/23/2025 7:54 AM EDT1 8:04 AM EDT Narrative Authorizing ProviderResult TypeResult StatusJose Miguel BOTELLO BLOOD ORDERABLES Final ResultPerforming OrganizationAddressCity/State/ZIP CodePhone Number [facility]) [address] [place] [address] * CARDIAC DEVICE CHECK - REMOTE - LOOP RECORDER (ILR) (06/26/2025 9:40 AM EDT) Only the most recent of3 resultswithin the time period is included. Specimen (Source)Anatomical Location / LateralityCollection Method / Volume Collection TimeReceived Time Narrative Authorizing ProviderResult TypeResult Francia Spivey [facility] [place] CARDIAC DEVICE PROCEDURESFinal ResultPerforming OrganizationAddressCity/State/ZIP Code Phone Number [facility] * Cardiac device check - Remote loop recorder (ILR) (06/23/2025 12:00 AM EDT) Anatomical RegionLateralityModalityOtherSpecimen (Source)Anatomical Location / LateralityCollection Method / VolumeCollection TimeReceived Time06/23/2025 Narrative Authorizing ProviderResult TypeResult Neeta Nathan [facility] IMPL[place] CARDIAC DEVICE PROCEDURESFinal Result from Last 3 Months Insurance Advance Directives * Full Code (Latest Code Status on File) Date ActivatedDate NhwyfbsqrdoZbtaomcz08/1/2025 11:18 AM07/23/2025 5:38 PM Care Teams Team MemberRelationshipSpecialtyStart DateEnd Date Nelida Stock FNP-C [address] [place] [address] PCP - GeneralNurse Cgndidjqhddn85/20/25
[2025-08-12 15:17] LABS: NT Pro B Type Natriuretic Pept 378.0 pg/mL (<=900.0)
== END 2025-08-12 14:51 | disposition home or self-care (01) ==
LOC: LAB 14:50
PROVIDERS: PCP Nurse Practitioner; Visit Provider Nurse Practitioner Family
DX: I50.33 Acute on chronic diastolic (congestive) heart failure (principal)
CPT/HCPCS: 36415; 83880

== ENCOUNTER 2025-08-21 10:09 | Outpatient (OUT) | payer OTHER, SELFPAY ==
--- OUTSIDE RECORDS SUMMARY | 2025-08-12 13:40 | XMS_ITS | Encounter Summary ---
Author Organization [facility] Address [address] [place] [address] Care Team Providers Care Control Panel Operator Name Role Phone Nelida Stock Primary Care Provider [phone] Reason for Visit * ReasonCommentsFollow-upPatient is here [...] urinating. 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); Aortic root dilation; Renal infarction; Primary hypertension; Coronary-myocardial bridge Social History Tobacco UseTypesPacks/DayYears UsedDateSmoking Tobacco: FormerCigarettesPassive Smoke Exposure: PastSmokeless Tobacco: NeverAlcohol UseStandard Drinks/Week CommentsYes3 (1 standard drink = 0.6 oz pure alcohol)3 times per week beerUT Safety & EnvironmentAnswerDate RecordedFear of Current or Ex-PartnerNot on file 12/14/2023Emotionally AbusedNot on file12/14/2023hysically AbusedNot on file 12/14/2023Sexually AbusedNot on file12/14/2023hysically or Sexually AbusedNot on file12/14/2023Sex and Gender InformationValueDate RecordedSex Assigned at OqfgjGtdv85/01/2025 7:22 AM EDTLegal PxlBxzt7904/20/2022 11:54 PM EDTGender UqjuhvmjSapt13/01/2025 7:22 AM EDTSexual OrientationHeterosexual or Straight 07/23/2025 7:22 AM EDTdocumented as of this encounter Last Filed Vital Signs Vital SignReadingTime TakenCommentsBlood Qwsbqiyr251/7808/12/2025 1:42 PM EDT Usadg634708/12/2025 1:42 PM EDTTemperature--Respiratory Rate--Oxygen Mkolfeimca97% 08/12/2025 1:42 PM EDTInhaled Oxygen Concentration--Dxhsix458 kg (225 lb) 08/12/2025 1:42 PM UWYCssmzx822.5 cm (6' 3 )08/12/2025 1:42 PM EDTBody Mass Index28.121 1:42 PM EDTdocumented in this encounter Functional Status * BPAnswerDate of RusmuomxwkQugltu650/7808/12/2025 1:42 PM Laurita Sebatsian MA * PulseAnswerDate of WmzfgiufmhEdyogx5889/21/2025 1:42 PM Laurita Sebastian MA * Patient PositionAnswerDate of WtgftuhpzaRusvhhUjomtek99/21/2025 1:42 PM EDT Laurita Turcios MA * BPAnswerDate of NbdtkdtujpDaqade992/7808/12/2025 1:42 PM Laurita Sebastian MA * PulseAnswerDate of OlbicwaudbGngmvs4463/21/2025 1:42 PM Laurita Sebastian MA * WqI1VrjdluNrgn of WfeiltbnjiNoibts4962/21/2025 1:42 PM Laurita Sebastian MA * BP LocationAnswerDate of AssessmentAuthorLeft arm08/12/2025 1:42 PM EDT Laurita Turcios MA * Patient PositionAnswerDate of FjcrpbzjujRzkwoiXxinush30/21/2025 1:42 PM EDT Laurita Turcios MA documented as of this encounter Progress Notes * Jessica Rausch, BRASS ROLLER - 08/12/2025 1:40 PM EDT Images from the original note were not included. Cardiovascular Medicine [facility] SUBJECTIVE Chief Complaint Patient presents with Follow-up Patient is here today S/P ablation. Patient states [...] afternoon.Before than he was taking them as needed. Hypertension Edema Congestive Heart Failure Left atrial enlargment Stroke Atrial Fibrillation Dizziness Dizziness/lightheaded with standing and with urinating. Syed Howard is a 60 y.o. male here for follow-up. PMHx: chronic diastolic heart failure, hypertension, left atrial enlargement, myocardial bridging involving the LAD, aortic root dilatation as well as prior renal infarction with unclear etiology. Prior event monitor did not show atrial fibrillation. He was evaluated by hematology and blood testingfor hypercoagulable state were negative. He was investigated for possible myeloproliferative disorder by bone marrow biopsy. He was previously maintained on Eliquis for anticoagulation but this was changed later on to aspirin 325 mg daily due to cost. Cardiac MRI in the past raise the possibility of cardiomyopathy. He had severely enlarged atria without a clear reason. A prior echocardiogram in 2018 with strain imaging did not show a pattern consistent with amyloid heart disease. Recently he was admitted at [facility] with a stroke In August 2023. He presented with right-sided weakness. Imaging showed left occipital lobe infarct predominantly involving the cortex. Aspirin was stopped and Eliquis was started 1 week post the stroke. In March 2024 he was admitted to [facility] with atrial flutter with 2-1 block and was started on Tikosyn. He reverted to sinus rhythm. His echocardiogram during that admission showed low normal ventricular systolic function. 08/12/2025 Since last seen he underwent an a.fib ablation. Prior to his ablation, he was admitted to a hospital in [place] for c/o chest pain. He was dx'd with an NSTEMI. He underwent a cardiac cath which found non- obstructive coronary arteries. His weight has been fluctuating more recently. He feels like his lasix PRN hadn't been working. He notes he had SOB with just short distances. He was instructed to start taking lasix daily and this has helped. His weight was up to 230# then with taking lasix daily it has come down to 225#. He c/o MOELLER - this is unchanged for him. Denies CP, orthopnea, PND, palpitatoins, dizziness/LH, syncope. Hypertension Associated symptoms include shortness of breath. Pertinent negatives include no chest pain, headaches, neck pain, orthopnea, palpitations or PND. Edema Pertinent negative symptoms include no abdominal pain, no chest pain, no fever, no hemoptysis, no palpitations, no PND, no syncope and no vomiting. Past medical history is significant for CHF. Congestive Heart Failure Associated symptoms include shortness of breath. Pertinent negatives include no abdominal pain, chest pain, claudication, near-syncope or palpitations. Stroke Pertinent negatives include no abdominal pain, chest pain, chills, fever, headaches, neck pain, rash, sore throat, swollen glands or vomiting. Atrial Fibrillation Symptoms include dizziness and shortness of breath. Symptoms are negative for chest pain, palpitations and syncope. Past medical history includes atrial fibrillation and CHF. Dizziness Pertinent negatives include no abdominal pain, chest pain, chills, fever, headaches, neck pain, rash, sore throat, swollen glands or vomiting. Shortness of Breath This is a recurrent problem. The current episode started more than 1 month ago. The problem occurs intermittently. The problem has been waxing and waning. The average episode lasts 3 minutes. Associated symptoms include leg swelling. Pertinent negatives include no abdominal pain, chest pain, claudication, coryza, ear pain, fever, headaches, hemoptysis, leg pain, neck pain, orthopnea, PND, rash, rhinorrhea, sore throat, sputum production, swollen glands, syncope, vomiting or wheezing. The symptoms are aggravated by exercise. 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 (CMS/HCC) At increased risk of exposure to COVID-19 virus Atrial flutter with rapid ventricular response (CMS/HCC) Gout Gouty arthritis Insomnia Ischemia and infarction of kidney Left arm numbness Left shoulder pain Macrocytosis without anemia Numbness of fingers Shortness of breath Neck pain Atrial flutter (CMS/HCC) Acute abdominal pain Acute ischemia of small intestine due to thrombosis of mesenteric vein Atrial fibrillation (CMS/HCC) History of stroke Ischemic bowel disease S/P cervical discectomy Superior mesenteric artery thrombosis Acute stress disorder Anxiety Colon cancer screening Cervical radiculopathy Chest pain Left elbow pain Diarrhea Dystonia Fatigue Night sweat Past Medical History: Diagnosis Date Aortic root dilation CHF (congestive heart failure) (CMS/HCC) Coronary-myocardial bridge GERD (gastroesophageal reflux disease) Hypertension Left atrial enlargement Myocardial infarction (CMS/HCC) Renal infarction Seizures (CMS/HCC) ONCE OR TWICE WITH MEDICATION 15 YRS AGO Stroke (CMS/HCC) Superior mesenteric artery thrombosis Family History Problem Relation Name Age of Onset Cancer Mother Coronary artery disease Father Cancer Maternal Grandmother Cancer Maternal Grandfather Social History Tobacco Use Smoking status: Former Types: Cigarettes Passive exposure: Past Smokeless tobacco: Never Substance Use Topics Alcohol use: Yes Alcohol/week: 3.0 standard drinks of alcohol Types: 3 Cans of beer per week Comment: 3 times per week beer Drug use: Not Currently Types: Marijuana Comment: vape pen at night before bed Allergies Allergen Reactions Bee Venom Protein (Honey Bee) Unknown Colchicine Other and Unknown Sleepiness Sleepiness Sleepiness Sleepiness Pollen Extracts Unknown Review of Systems Constitutional: Positive for weight gain. Negative for chills, decreased appetite and fever. HENT: Negative for ear pain, rhinorrhea and sore throat. Cardiovascular: Positive for dyspnea on exertion and leg swelling. Negative for chest pain, claudication, irregular heartbeat, near-syncope, orthopnea, palpitations, paroxysmal nocturnal dyspnea and syncope. Respiratory: Positive for shortness of breath. Negative for hemoptysis, sputum production and wheezing. Hematologic/Lymphatic: Negative for bleeding problem. Does not bruise/bleed easily. Skin: Negative for rash. Musculoskeletal: Negative for neck pain. Gastrointestinal: Negative for abdominal pain and vomiting. Neurological: Positive for dizziness. Negative for headaches. Review of Systems Cardiovascular: Positive for dyspnea on exertion. Musculoskeletal: Positive for arthritis, back pain, gout and joint pain. All other systems reviewed and are negative. OBJECTIVE Visit Vitals BP 122/78 (BP Location: Left arm, Patient Position: Sitting) Pulse 76 Ht 1.905 m (6' 3 ) Wt 102 kg (225 lb) SpO2 96% BMI 28.12 kg/m?? Smoking Status Former BSA 2.32 m?? Medications: Current Outpatient Medications: allopurinol (Zyloprim) 300 mg tablet, Take 300 mg by mouth in the morning., Disp: , Rfl: apixaban (Eliquis) 5 mg tablet, Take 1 tablet (5 mg) by mouth in the morning and at bedtime., Disp:180 tablet, Rfl: 3 aspirin 325 mg tablet, Take 325 mg by mouth in the morning., Disp: , Rfl: atorvastatin (Lipitor) 40 mg tablet, Take 1 tablet (40 mg) by mouth at bedtime., Disp: 90 tablet, Rfl: 3 baclofen (Lioresal) 20 mg tablet, if needed at bedtime., Disp: , Rfl: buPROPion SR (Wellbutrin SR) 150 mg 12 hr tablet, Take 300 mg by mouth in the morning., Disp: , Rfl: busPIRone (Buspar) 10 mg tablet, Take 1 tablet by mouth two times daily., Disp: , Rfl: dofetilide (Tikosyn) 250 mcg capsule, TAKE 1 CAPSULE (250 MCG) BY MOUTH TWO TIMES DAILY., Disp: 60 capsule, Rfl: 11 gabapentin (Neurontin) 300 mg capsule, 600 mg two times daily., Disp: , Rfl: pantoprazole (ProtoNix) 40 mg EC tablet, Take 40 mg by mouth in the morning., Disp: , Rfl: tadalafil (Cialis) 20 mg tablet, Take 1 tablet by mouth if needed., Disp: , Rfl: temazepam (Restoril) 30 mg capsule, Take 1 capsule by mouth at bedtime., Disp: , Rfl: traMADol (Ultram) 50 mg tablet, TAKE 1 TABLET BY MOUTH TWICE DAILY NEEDED FOR PAIN (M48.02) DUE NOW 30 DAYS, Disp: , Rfl: esomeprazole (NexIUM) [address] capsule, Take 40 mg by mouth before breakfast. Do not open capsule. (Patient not taking: Reported on 08/12/2025), Disp: , Rfl: furosemide (Lasix) 40 mg tablet, Take 1 tablet (40 mg) by mouth two times daily. Can take an additional tablet as needed, Disp: 225 tablet, Rfl: 3 metoprolol succinate XL (Toprol-XL) 25 mg 24 hr tablet, Take 1 tablet (25 mg) by mouth in the morning. Do not crush or chew. (Patient not taking: Reported on 08/12/2025), Disp: 90 tablet, Rfl: 0 Physical Exam Constitutional: Appearance: Normal appearance. He is normal weight. HENT: Head: Normocephalic and atraumatic. Right Ear: External ear normal. Left Ear: External ear normal. Eyes: Extraocular Movements: Extraocular movements intact. Pupils: Pupils are equal, round, and reactive to light. Neck: Vascular: No carotid bruit. Comments: No JVD Cardiovascular: Rate and Rhythm: Normal rate and regular rhythm. Pulses: Normal pulses. Heart sounds: Normal heart sounds. Pulmonary: Effort: Pulmonary effort is normal. Breath sounds: Normal breath sounds. Abdominal: General: Bowel sounds are normal. Palpations: Abdomen is soft. Musculoskeletal: General: Normal range of motion. Cervical back: Neck supple. Right lower leg: No edema. Left lower leg: No edema. Skin: General: Skin is warm and dry. Neurological: General: No focal deficit present. Mental Status: He is alert and oriented to person, place, and time. Psychiatric: Mood and Affect: Mood normal. Behavior: Behavior normal. Thought Content: Thought content normal. Judgment: Judgment normal. Labs: BMP Cr 1.27, eGFR 58 NTproBNP 378 07/04/2025 Cr 0.95, BUN 10, K 3.9, Na 139, eGFR 93 Mag 1.8 Labs 03/25/2023 Cr 0.78, BUN 12, K 4.2, eGFR >90, Na 134 Testing/Procedures: ATRIAL FIBRILLATION ABLATION PROCEDURE NOTE DATE OF PROCEDURE: 07/23/2025 PERFORMING PHYSICIAN: Dr. Jose Miguel Spivey NAME OF THE PROCEDURE: Pulmonary Vein Isolation [...] results using intravenous adenosine infusion. 8. Fluroscopy. POST PROCEDURE DIAGNOSIS 1. Paroxysmal atrial fibrillation s/p PVI (WACA) with PFA. 2. CTI flutter s/p prior ablation with bidirectional block demonstrated again 2. EP study revealing no retrograde accessory pathway. 3. Normal LA voltage except small area noted in the posterior aspect that is 2- 3cms diameter. 4. Elevated LA pressures. PLAN: 1. Anticoagulation after 2 hrs of sheath removal. 2. Protonix 40mg bid x 1 month. 3. Groin precautions. Jose Miguel Spivey MD Cardiac Electrophysiology ECHO 07/03/2025 LV is enlarged with mild LVH and segmental wall motion abnormalities, LVEF 50-55% RV is enlarged with normal RV function No significant valvular heart disease RVSP 38mmHg Aortic root dilated measuring 4.1cm Cardiac cath 07/04/2025 at [facility] Non-obstructive coronary artery disease Normal left heart filling pressures ATRIAL FLUTTER ABLATION & LOOP IMPLANT PROCEDURE NOTE DATE OF PROCEDURE: 09/16/2024 PERFORMING PHYSICIAN: Dr. Jose Miguel Spivey. CONSENT: Patient NAME OF THE PROCEDURE: Flutter ablation and Comprehensive EP study. INDICATIONS FOR PROCEDURE: Atrial flutter PROCEDURES PERFORMED: 1. Sonosite guided venous access as noted below and images stored in PACS. 2. Comprehensive EP study and catheter ablation for persistent atrial flutter. This includes right atrial recording and pacing, His bundle recording and right ventricular recording and pacing. 3. Intracardiac EP 3D mapping. 4. Intracardiac echocardiogram 5. Left atrial and coronary sinus recording and pacing to assess ablation results. 6. Conscious sedation. 7. LOOP monitor placement. POST PROCEDURE DIAGNOSIS 1. Symptomatic atrial flutter s/p CTI ablation. 2. EP study revealing no retrograde accessory conduction. 3. Successful placement of LOOP implant with excellent sensing parameters. RECOMMENDATIONS: 1. Occlusive dressing to be changed after 7 days. 2. Do not wet the incision. 3. Anticoagulation after 4 hrs of sheath removal with DOAC 4. Groin precautions. Jose Miguel Spivey MD Cardiac Electrophysiology ECHO (05/17/2022) ASSESSMENT/PLAN: Diagnosis Plan 1. Paroxysmal atrial fibrillation (CMS/HCC) ECG 12 lead unit performed 2. Acute on chronic diastolic heart failure (CMS/HCC) furosemide (Lasix) 40 mg tablet 3. Atrial flutter, unspecified type (CMS/HCC) 4. Status post catheter ablation of atrial fibrillation 5. 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 Aortic root dilation 7. Renal infarction 8. Primary hypertension 9. Coronary-myocardial bridge #Acute on Chronic diastolic heart failure -NYHA II -Mildly fluid overloaded on exam. He recently has been taking lasix 40mg BID. Pt stats his weight is still up 7-8lbs but he feels like the fluid isn't coming off like it use to. NTproBNP mildly elevated at 378 today. -Will have him increase lasix to 80mg BID for 2-3 days then back to 40mg BID. -Follow-up in 1 week. -Plan to initiate Farxiga at next visit. -Discussed importance of heart healthy diet, trying to make healthier options and low Na+ food choices along with limited ETOH intake. He states understanding. -Encouraged routine exercise. #A.fib s/p PVI (WACA) with PFA ablation 07/23/25 #A.flutter s/p prior ablation with bidirectional block demonstrated again on recent ablation -EKG today shows he is maintaining SR -Continue tikosyn, Eliquis, metoprolol #HTN -Controlled -Continue Lisinopril 2.5mg daily and Toprol 25mg daily #Myocardial bridging -Continue BB #Hx renal infarct #Hx of CVA -On Eliquis, ASA, statin #Mildly dilated aortic root -4.1 cm per 06/2025 TTE -Continue strict BP and HR control -Continue routine monitoring Follow-up in 1 week or sooner if needed. Jessica Rausch CNP [facility] Cardiovascular Medicine documented in this encounter Plan of Treatment Not on file documented as of this encounter Procedures Procedure NamePriorityDate/TimeAssociated DiagnosisCommentsECG 12 LEAD UNIT DPQDNOKXXLptijki26/21/2025 2:06 PM EDT Paroxysmal atrial fibrillation (CMS/HCC) documented in this encounter Results * ECG 12 lead unit performed (08/12/2025 2:06 PM EDT)Specimen (Source)Anatomical Location / LateralityCollection Method / VolumeCollection TimeReceived Time Narrative Authorizing ProviderResult TypeResult StatusMelsybil Rausch CNPECG ORDERABLES Final Result documented in this encounter Visit Diagnoses Diagnosis Paroxysmal atrial fibrillation (CMS/HCC)- Primary Atrial fibrillation Acute on chronic diastolic heart failure (CMS/HCC) Acute on chronic diastolic heart failure Atrial flutter, unspecified type (CMS/HCC) Status post catheter ablation of atrial fibrillation 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
--- OUTSIDE RECORDS SUMMARY | 2025-08-21 09:40 | XMS_ITS | Encounter Summary ---
Author Organization [facility] Address [address] [place] [address] Care Team Providers Care Media Buyer Name Role Phone Nelida Stock-Bi Primary Care Provider [phone] Reason for Visit * ReasonCommentsFollow-upPatient is here today for a 1 week follow up. Patient denies chest pain, MOELLER/SOB, palpitations/racing heart, dizziness/lightheaded HypertensionRenal infarctionCongestive Heart Failurecoronary-myocardial bridge Aortic root dilationLeft atrial enlargement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Atrial FlutterAtrial FibrillationEdemaBilateral leg swelling much better than last visit. Encounter Details DateTypeDepartmentCare Team (Latest Contact Info)Wtlesyqgmgq21/30/2025 9:40 AM EDTFollow-Up [facility] [place] [address] [place] [id number] Jessica Rausch, JOYCE [address] [place] [address] Chronic diastolic heart failure (CMS/HCC) (Primary Dx); Paroxysmal atrial fibrillation (CMS/HCC); Status post catheter ablation of atrial [...] file12/14/2023Sex and Gender InformationValueDate RecordedSex Assigned at PbgdrWxap12/01/2025 7:22 AM EDTLegal SqvWfkw3904/20/2022 11:54 PM EDTGender PnszxpquUghd25/01/2025 7:22 AM EDTSexual OrientationHeterosexual or Straight 07/23/2025 7:22 AM EDTdocumented as of this encounter Last Filed Vital Signs Vital SignReadingTime TakenCommentsBlood Mfmauxox061/ 9:39 AM EDT Wmivv796208/21/2025 9:39 AM EDTTemperature--Respiratory Rate--Oxygen Ckwvrayubr30% 08/21/2025 9:39 AM EDTInhaled Oxygen Concentration--Sjygav564 kg (227 lb) 08/21/2025 9:39 AM SATFqrdao884.5 cm (6' 3 )08/21/2025 9:39 AM EDTBody Mass Index28.371 9:39 AM EDTdocumented in this encounter Functional Status * BPAnswerDate of SqzxanikapWenqdd490/7410/30/2025 9:39 AM Laurita Sebastian MA * PulseAnswerDate of EpynusetiiQpiskl3846/30/2025 9:39 AM Laurita Sebastian MA * Patient PositionAnswerDate of FfomcmddxaYezbafNrucblw92/30/2025 9:39 AM EDT Laurita Turcios MA * BPAnswerDate of WqgwyavsbuRofvhu193/7410/30/2025 9:39 AM Laurita Sebastian MA * PulseAnswerDate of FgwszrnidhXawaij7719/30/2025 9:39 AM Laurita Sebastian MA * AgC0MmpbnrRqpg of QzsyedmdynYbugta2056/ 9:39 AM Laurita Sebastian MA * BP LocationAnswerDate of AssessmentAuthorRight arm08/21/2025 9:39 AM EDT Laurita Turcios MA * Patient PositionAnswerDate of HgjblfyxzvRfuqerWzkaaoi59/30/2025 9:39 AM EDT Laurita Turcios MA documented as of this encounter Progress Notes * Jessica Rausch, JOYCE - 08/21/2025 9:40 AM EDT Images from the original note were not included. Cardiovascular Medicine [facility] SUBJECTIVE Chief Complaint Patient presents with Follow-up Patient is here today for a 1 week follow up. Patient denies chest pain, MOELLER/SOB, palpitations/racing heart, dizziness/lightheaded Hypertension Renal infarction Congestive Heart Failure coronary-myocardial bridge Aortic root dilation Left atrial enlargement 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 Atrial Flutter Atrial Fibrillation Edema Bilateral leg swelling much better than last visit. Syed Howard is a 60 y.o. male [...] heart disease. Recently he was admitted at [facility] with a stroke In August 2023. He presented with right-sided weakness. Imaging showed left occipital lobe infarct predominantly involving the cortex. Aspirin was stopped and Eliquis was started 1 week post the stroke. In March 2024 he was admitted to [facility] with atrial flutter with 2-1 block and was started on Tikosyn. He reverted to sinus rhythm. His echocardiogram during that admission showed low normal ventricular systolic function. 08/12/2025 Since last seen he underwent an a.fib ablation. Prior to his ablation, he was admitted to a hospital in [place] for c/o chest pain. He was dx'd [...] Denies CP, orthopnea, PND, palpitatoins, dizziness/LH, syncope. 08/21/2025 He is feeling much better since last seen. He is currently taking lasix TID, 40mg His weight is back down to his baseline of 217lbs. Breathing is much better, leg swelling is much better, he is sleeping better. He hasn't been taking metoprolol since being on the Tikosyn due to low HR and being symptomatic with this. Hypertension Associated symptoms include shortness of breath. [...] and are negative. OBJECTIVE Visit Vitals BP 112/74 (BP Location: Right arm, Patient Position: Sitting) Pulse 71 Ht 1.905 m (6' 3 ) Wt 103 kg (227 lb) SpO2 95% BMI 28.37 kg/m?? Smoking Status Former BSA 2.33 m?? Medications: Current Outpatient Medications: allopurinol (Zyloprim) [...] TIMES DAILY., Disp: 60 capsule, Rfl: 11 furosemide (Lasix) 40 mg tablet, Take 1 tablet (40 mg) by mouth two times daily. Can take an additional tablet as needed (Patient taking differently: Take 40 mg by mouth three times daily. Can take an additional tablet as needed), Disp: 225 tablet, Rfl: 3 gabapentin (Neurontin) 300 mg capsule, 600 mg [...] FOR PAIN (M48.02) DUE NOW 30 DAYS (Patient taking differently: Take 50 mg by mouth if needed.), Disp: , Rfl: esomeprazole (NexIUM) [address] capsule, Take 40 mg by mouth before breakfast. Do not open capsule. (Patient not taking: Reported on 08/21/2025), Disp: , Rfl: metoprolol succinate XL (Toprol-XL) 25 mg 24 hr tablet, Take 1 tablet (25 mg) by mouth in the morning. Do not crush or chew. (Patient not taking: Reported on 08/21/2025), Disp: 90 tablet, Rfl: 0 Physical Exam [...] Cervical back: Neck supple. Right lower leg: Edema present. Left lower leg: Edema present. Comments: Trace bilat edema Skin: General: Skin is warm and dry. [...] with DOAC 4. Groin precautions. Jose Miguel Spievy MD Cardiac Electrophysiology ECHO (05/17/2022) ASSESSMENT/PLAN: Diagnosis Plan 1. Chronic diastolic heart failure (CMS/HCC) Basic metabolic panel Basic metabolic panel 2. Paroxysmal atrial fibrillation (CMS/HCC) 3. Status post catheter ablation of atrial fibrillation 4. 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 Aortic root dilation 6. Renal infarction 7. Primary hypertension 8. Coronary-myocardial bridge #Chronic diastolic heart failure -NYHA II -He appears compensated on exam. -He notes his weight is back down to baseline around 217#. -He notes he has been taking lasix 40mg TID instead of BID and this seems to be helping keep his weight controlled. -Will have him get a BMP today. If renal function stable, will plan to initiate Farxiga. -Discussed importance of heart healthy diet, trying to make healthier options and low Na+ food choices along with limited ETOH intake. He states understanding. -Encouraged routine exercise. #A.fib s/p PVI ([facility]) with PFA ablation 07/23/25 #A.flutter s/p prior ablation with bidirectional block demonstrated again on recent ablation -RRR on exam -Continue tikosyn, Eliquis -Consider stopping tikosyn after next visit. -He notes he has been off of metoprolol since being on Tikosyn as he was having symptomatic bradycardia. Plan to re-initiate after stopping Tikosyn. #HTN -Controlled -Continue Lisinopril 2.5mg daily #Myocardial bridging -Resume BB when able #Hx renal infarct #Hx of CVA -On Eliquis, ASA, statin #Mildly dilated aortic root -4.1 cm per 06/2025 TTE -Continue strict BP and HR control -Continue routine monitoring Follow-up in 2 months or sooner if needed. Jessica Rausch CNP [facility] Cardiovascular Medicine documented in this encounter Plan of Treatment NameTypePriorityAssociated DiagnosesOrder ScheduleBasic metabolic panelLab Routine Chronic diastolic heart failure (CMS/HCC) Expected: 08/21/2025 (Approximate), Expires: 08/21/2026asic metabolic panelLab Routine Chronic diastolic heart failure (CMS/HCC) Expected: 08/21/2025 (Approximate), Expires: 08/21/2026documented as of this encounter Visit Diagnoses Diagnosis Chronic diastolic heart failure (CMS/HCC)- Primary Chronic diastolic heart failure Paroxysmal atrial fibrillation (CMS/HCC) Atrial fibrillation Status post catheter ablation of atrial fibrillation 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
--- OUTSIDE RECORDS SUMMARY | 2025-08-21 10:13 | XMS_ITS | Encounter Summary ---
Author Organization [facility] Address [address] [place] [address] Care Team Providers Care Cipher Expert Name Role Phone Nelida Stock WATER SUPERINTENDENT-Bi Primary Care Provider [phone] Encounter Details DateTypeDepartmentCare Team (Latest Contact Info)Rnyzvlnawdu46/21/2025Orders Only [facility] [place] [address] [place] [address] Alecia Rodrigues MA Acute on [...] file12/14/2023Sex and Gender InformationValueDate RecordedSex Assigned at CkbulMqww04/01/2025 7:22 AM EDTLegal ZxoFaxv9604/20/2022 11:54 PM EDTGender BpttayybNmve38/01/2025 7:22 AM EDTSexual OrientationHeterosexual or Straight 07/23/2025 7:22 AM EDTdocumented as of this encounter Functional Status * BPAnswerDate of HgndwffsxjDfhuud986/7810/ 1:42 PM Laurita Sebastian MA * PulseAnswerDate of KsholpuxhmFzuwiu5439/21/2025 1:42 PM Laurita Sebastian MA * Patient PositionAnswerDate of YelprgeegeEtkwjoAhtdsfl82/21/2025 1:42 PM EDT Laurita Turcios MA * BPAnswerDate of OvrrhinlqjNykdxy209/7810 1:42 PM Laurita Sebastian MA * PulseAnswerDate of IwlyklyhwuGehixo2565/21/2025 1:42 PM Laurita Sebastian MA * BbX4OjevxeBozj of XdnztdhsoeFjqvji2592/21/2025 1:42 PM Laurita Sebastian MA * BP LocationAnswerDate of AssessmentAuthorLeft arm08/12/2025 1:42 PM EDT Laurita Turcios MA * Patient PositionAnswerDate of EgoljswbboPgrsiaSyfccud07/21/2025 1:42 PM EDT Laurita Turcios MA documented as of this encounter Plan of Treatment NameTypePriorityAssociated DiagnosesOrder ScheduleB-type natriuretic peptideLab Routine Acute on chronic diastolic heart failure (CMS/HCC) Expected: 08/12/2025 (Approximate), Expires: 08/12/2026documented as of this encounter Visit Diagnoses Diagnosis Acute on chronic diastolic heart failure (CMS/HCC)- Primary Acute on chronic diastolic heart failure documented in this encounter Care Teams Team MemberRelationshipSpecialtyStart DateEnd Date Nelida Stock FNP-C [address] [id number] PCP - GeneralNurse Ypbjadzltgcr09/20/25documented as of this encounter
--- OUTSIDE RECORDS SUMMARY | 2025-08-21 10:13 | XMS_ITS | Continuity of Care Document ---
Author Organization [facility]. Address [address] [place] [phone] Phone [phone] Care Team Providers Care Fourth Hand Name Role Phone Taina Colindres Care Team Information Security Assurance Analyst [phone] Assessments Date Code Description Provider 06/28/2019 N28.0 Ischemia and infarction of k augustinaney Don Hunter MD 06/28/2019 E87.6 Hypokalemia Tish Wilson 06/28/2019 I50.9 Heart failure, unspecified S ankur Hunter MD 06/28/2019 R74.8 Abnormal levels of other ser um enzymes Don Hunter MD
--- OUTSIDE RECORDS SUMMARY | 2025-08-21 10:13 | XMS_ITS | Encounter Summary ---
Author Organization [facility] Address [address] [place] [address] Care Team Providers Care Spider Assembler Name Role Phone Nelida Stock DROP SHIPMENT CLERK-C Primary Care Provider [phone] Encounter Details DateTypeDepartmentCare Team (Latest Contact Info)Didvweegebs93/22/2025Orders Only [facility] [place] [address] [place] [address] ProviderEloy MD [address] [place], [place] [phone] Social History Tobacco UseTypesPacks/DayYears UsedDateSmoking Tobacco: FormerCigarettesPassive Smoke Exposure: PastSmokeless Tobacco: NeverAlcohol UseStandard Drinks/Week CommentsYes3 (1 standard drink = 0.6 oz pure alcohol)3 times per week beerUT Safety & EnvironmentAnswerDate RecordedFear of Current or Ex-PartnerNot on file 12/14/2023Emotionally AbusedNot on file12/14/2023hysically AbusedNot on file 12/14/2023Sexually AbusedNot on file4Physically or Sexually AbusedNot on file12/14/2023Sex and Gender InformationValueDate RecordedSex Assigned at AtzwtBmbx78/01/2025 7:22 AM EDTLegal XprVdcv5404/20/2022 11:54 PM EDTGender DcndcclzAqnj60/01/2025 7:22 AM EDTSexual OrientationHeterosexual or Straight 07/23/2025 7:22 AM EDTdocumented as of this encounter Plan of Treatment Not on file documented as of this encounter Procedures Procedure NamePriorityDate/TimeAssociated DiagnosisCommentsECG 12-LEADRoutine 08/12/2025 1:30 PM EDTdocumented in this encounter Results * ECG 12 lead (08/12/2025 1:30 PM EDT) Narrative Authorizing ProviderResult TypeResult StatusHistorical Provider MDECG ORDERABLES Final Result documented in this encounter Visit Diagnoses Not on filedocumented in this encounter Care Teams Team MemberRelationshipSpecialtyStart DateEnd Date Neldia Stock FNP-C [address] [place] [address] PCP - GeneralNurse Hluzsyowwlwq70/20/25documented as of this encounter
--- OUTSIDE RECORDS SUMMARY | 2025-08-21 10:13 | XMS_ITS | Clinical Summary ---
Author Organization [facility] Address [address] [place] [address] Care Team Providers Care Automotive Engineering Technician Name Role Phone No, Physician Primary Care Provider Unavailabl e Allergies Active AllergyReactionsCriticalityNoted DateCommentsBee Venom Protein (Honey Bee)AjsyhoedeplOcly47/11/7387TtezkeimydMtinspp29/11/2025 Medications MedicationSigDispense QuantityRefillsLast FilledStart DateEnd DateStatus temazepam [...] EDTExpired Active Problems ProblemNoted DateDiagnosed DateChest pain07/03/2025Renal gbuqsuk9806/26/2019 Assessment & Plan (06/29/2019 3:54 PM EDT): Possibly embolic. Agree with systemic anticoagulation and hypercoagulable work- up. Can be complete as an outpatient. Patient is at high risk for atrial fibrillation given his severe left atrial enlargement. Recommended 30-day event monitor. If this is negative then consider an implantable loop recorder. We will arrange for 30-day event monitor. Elevated amkrjzax51/04/2019 Assessment & Plan (06/29/2019 3:53 PM EDT): [...] failure. Reviewed right left heart catheterization from [facility] in 2016. Diastolic heart failure at that [...] unfortunately his mother's side she is a English immigrant and does not know much about her family history. Resolved Problems ProblemNoted DateDiagnosed DateResolved DateShortness of xjbqvk6206/28/2019 06/29/2019 Assessment & Plan (06/28/2019 2:48 PM EDT): Unexplained shortness of breath Mild pulmonary hypertension Mild elevation of troponin Rule out pulmonary embolism. Given renal infarction, will plan ventilation/perfusion scan. Encounters DateTypeDepartmentCare DnkrMqtxrgemvoj53/12/2025 12:25 PM EDT - 07/04/2025 1:40 PM EDTSurgery [facility] [address] [place] [address] Terrence Medina MD Coronary Gydyjqtov87/11/2025 12:06 AM EDT - 07/04/2025 6:54 PM EDTHospital Encounter [facility] [address] [place] [address] [facility], Generic Prashant Taylor MD Kiza, Thiago Anna, DO Discharge Disposition: Homefrom Last 3 Months Social History Tobacco UseTypesPacks/DayYears UsedDateSmoking Tobacco: FormerCigarettes Smokeless Tobacco: Never Tobacco Cessation:Counseling Given: Not Answered Alcohol UseStandard Drinks/WeekCommentsYes4 (1 standard drink = 0.6 oz pure alcohol)only during events and when he goes out every mondayMEMORIAL HE[facility] UtilitiesAnswer Date RecordedIn the past 12 months has the [place] Department of [employer], gas, oil, or water [employer] threatened to shut off services in your [...] were you homeless or living in a chcf (including now)?No07/03/2025Sex and Gender InformationValueDate Recorded Sex Assigned at BirthNot on fileLegal GihFtir7703/08/2014 3:14 PM EDTGender IyshbozkSumj54/04/2019 8:32 AM EDTSexual VpizefquqjlEctybwjb36/04/2019 9:16 AM EDT Last Filed Vital Signs Vital SignReadingTime TakenCommentsBlood Ioputbre966/8209 4:31 PM EDT Jodeh259307/04/2025 4:31 PM WPAEeeworgnspn81.4 ??C (97.5 ??F)07/04/2025 3:24 PM EDTRespiratory Dfpe3714 4:31 PM EDTOxygen Ebxknnhogd00%07/04/2025 3:24 PM EDTInhaled Oxygen Concentration--Ejrenl93.8 kg (220 lb)07/03/2025 12:21 AM KNRWtcjrr177.5 cm (6' 3 )07/03/2025 12:21 AM EDTBody Mass Index27.509 12:21 AM EDT Plan of Treatment DateTypeDepartmentCare Team (Latest Contact Info)Pxkdaodtziu89/23/2025 10:20 AM ESTOffice Visit [facility] [address], 3rd [place] [phone] Day, [place] [address] Health MaintenanceDue DateLast DoneCommentsCT Zyilecqnravx1966Fecal DNA 1966Fecal occult blood test (FOBT,FIT)1966PSA Level1966MMR Vaccines (1 of 1 - Standard series)1967Wellness Visit1969HIV Bjznkfdhn74/24/1981Hepatitis C Opdntbkyr20/24/1984Tetanus/Diphtheria/Pertussis (1 - Tdap)1985Flexible /24/2016Pneumococcal Vaccine: 50+ Years (1 of 1 - PCV)2016Depression Screening/Follow-Up (PHQ-12/01)06/26/2020 06/26/20193276Oeiaxecubhh15/14/202402/Colorectal Cancer Screening/Monitoring 4CLASS III : OFFICE VISIT/OVID-19 Vaccine ( season), 10/21/2021, 01/01/2021, Additional history existsInfluenza Vaccine (#1)06/23/2025LASS III : HIIIWYKDJZ06/12/2025 07/04/2025, 07/03/2025, 06/29/2019, Additional history existsCLASS III : SBPTQAMYM29, 07/03/2025, 06/29/2019, Additional history exists Class III: Cwnlgwgxu39/12/14549907/04/2025, 5CLASS III : EKG0307/04/2025, 07/03/2025, 07/03/2025, Additional history existsRSV Vaccines (1 - 1-dose 75+ series)2041Hepatitis B YyprfcucEulnjdxsp75/30/2008, 11/05/2007, 10/04/2007Zoster HcxwsnsjAveocxxzb87/04/2024, 01/09/2024HIB VaccinesAged OutNo longer eligible based on [...] topic Procedures Procedure NamePriorityDate/TimeAssociated DiagnosisCommentsLEFT HEART CATH Pdjtfqi8707/04/2025 1:59 PM EDT CORONARY FZWMJFHWUXZHytbpzp16/12/2025 1:59 PM EDT EKG007/04/2025 11:37 AM EDTCBC WITH AUTO LDTSRMOJYLINUvqyvzd98/12/2025 7:30 AM EDT PEJPScykp21/12/2025 7:30 AM EDT CBC AND TIQZMDYUAXAKVmnfegh74/12/2025 7:30 AM EDT BASIC METABOLIC LYCYWZjkigfq16/12/2025 7:30 AM EDT MAGNESIUM BYANTKateseg93/12/2025 7:30 AM EDT YEBPWHKCXDPpktxus35/12/2025 7:30 AM EDT TITHDmpyr09/11/2025 11:42 PM EDT YRJYMziqt42/11/2025 5:15 PM EDT ECHOCARDIOGRAM 2D TGCSWFUPMuanlum59/11/2025 8:10 AM EDT QAURPtdra37/11/2025 6:29 AM EDT ECG 12-EXVJXBRW43/11/2025 5:09 AM EDT CBC WITH AUTO WSKNZCSEEIKHSgybftl78/11/2025 2:41 AM EDT CBC AND TZKHRKBEJRQGWxduzjc47/11/2025 2:41 AM EDT BASIC METABOLIC PQHZPUdwclzx58/11/2025 2:41 AM EDT MAGNESIUM CRMIYRauwhxn30/11/2025 2:41 AM EDT DFPJBRQXMXRvnxdtk55/11/2025 2:41 AM EDT TROPONIN X 2 (NOW AND REPEAT IN 2 HOURS)Timed07/03/2025 2:41 AM EDT ECG 12-LEETQOSP24/11/2025 1:53 AM EDT YYGRfzrozm64/11/2025 12:58 AM EDT HEMOGLOBIN C1RFrddwiu91/11/2025 12:58 AM EDT LIPID NFFMZPSLM80/11/2025 12:58 AM EDT TROPONIN X 2 (NOW [...] TimeReceived Time Narrative Authorizing ProviderResult TypeResult StatusGeneric [facility] [place] HospitalistsSCANNED ORDERSFinal Result * (ABNORMAL) APTT Heparin Coverage (07/04/2025 7:30 AM EDT) Only the most recent of4 resultswithin the time period is included. ComponentValueRef RangeTest MethodAnalysis TimePerformed AtPathologist Signature APTT92(H)23 - 34 gqajefl4407/04/2025 8:35 AM EDTMH LABSpecimen (Source)Anatomical Location / LateralityCollection Method / VolumeCollection TimeReceived TimeBlood BLOOD SPECIMEN / UnknownVenipuncture / Xcvdbiz7307/04/2025 7:30 AM EDT07/04/2025 7:51 AM EDT Narrative LAB - 07/04/2025 8:35 AM EDT Therapeutic range for APTT's is 68 - 104 seconds Authorizing ProviderResult TypeResult StatusPrashant BOTELLO BLOOD ORDERABLES Final ResultPerforming OrganizationAddressCity/State/ZIP CodePhone Number LAB [address] [place] [address] * (ABNORMAL) CBC Auto Differential (07/04/2025 7:30 AM EDT) Only the most recent of2 resultswithin the time period is included. ComponentValueRef RangeTest MethodAnalysis TimePerformed AtPathologist Signature WBC6.004.50 - 11.00 K/mcL07/04/2025 7:55 AM EDTMH LABRBC3.97(L)4.50 - 5.90 M/mcL 07/04/2025 7:55 AM EDTMH LJSEpmjcwkgqb35.113.5 - 17.5 g/dL07/04/2025 7:55 AM EDT KGHRpdohuilpi61.341.0 - 53.0 %07/04/2025 7:55 AM EDTMH ZMJQXF249.5(H)80.0 - 100.0 fL07/04/2025 7:55 AM EDTM AXEBOG70.5(H)26.0 - 34.0 pg07/04/2025 7:55 AM [facility] AQZYKJS73.331.0 - 37.0 g/dL07/04/2025 7:55 AM EDTM WTVUnekwlhxh663477 - 400 K/[facility]07/04/2025 7:55 AM EDTM LABRDW - CV12.411.6 - 14.8 %07/04/2025 7:55 AM EDTM WNLEEE14.79.4 - 12.4 fL07/04/2025 7:55 AM EDTM ARYDgtjwbepoqk26.8% 07/04/2025 7:55 AM EDTM XNKEciendpxthy31.0%07/04/2025 7:55 AM EDTM LAB Monocytes6.7%07/04/2025 7:55 AM EDTM LABEosinophils1.8%07/04/2025 7:55 AM [facility] LABBasophils0.5%07/04/2025 7:55 AM EDTM LABIG Percent0.20%07/04/2025 7:55 AM [facility] LABComment:The IG parameter is the percentage of metamyelocytes, myelocytes and promyelocytes. An immature granulocyte count (IG) of 1% or more suggests the possibility of infection, an IG count of 3% is very likely related to an infection.Neutrophils Abs3.351.70 - 7.00 K/[facility]07/04/2025 7:55 AM EDTM LAB Lymphocytes Abs2.100.90 - 4.00 K/[facility]07/04/2025 7:55 AM EDTM LABMonocytes Abs 0.400.30 - 0.90 K/[facility]07/04/2025 7:55 AM EDTM LABEosinophils Abs0.110.00 - 0.50 K/[facility]07/04/2025 7:55 AM EDTM LABBasophils Abs0.030.00 - 0.30 K/[facility]07/04/2025 7:55 AM EDTM LABIG Absolute0.010.00 - 0.30 K/mcL07/04/2025 7:55 AM [facility] LAB Nucleated RBC0.0%07/04/2025 7:55 AM ED[facility] LABNucleated RBC Abs0.000.00 - 0.00 K/mcL07/04/2025 7:55 AM [facility] LABSpecimen (Source)Anatomical Location / LateralityCollection Method / VolumeCollection TimeReceived TimeBloodBLOOD SPECIMEN / UnknownVenipuncture / Sdskdsh7307/04/2025 7:30 AM EDT07/04/2025 7:51 AM EDT Narrative Authorizing ProviderResult TypeResult StatusEric Wilfrido CASTAÑEDA BLOOD ORDERABLESFinal ResultPerforming OrganizationAddressCity/State/ZIP CodePhone Number LAB [address] [place] [address] * Phosphorus (07/04/2025 7:30 AM EDT) Only the most recent of2 resultswithin the time period is included. ComponentValueRef RangeTest MethodAnalysis TimePerformed AtPathologist Signature Phosphorus3.02.7 - 4.5 mg/dL07/04/2025 8:27 AM EDFORM[facility] LABSpecimen (Source) Anatomical Location / LateralityCollection Method / VolumeCollection Time Received TimeBloodBLOOD SPECIMEN / UnknownVenipuncture / Awdebgy3907/04/2025 7:30 AM EDT07/04/2025 7:51 AM EDT Narrative Authorizing ProviderResult TypeResult StatusEric Wilfrido CASTAÑEDA BLOOD ORDERABLESFinal ResultPerforming OrganizationAddressty/State/ZIP CodePhone Number LAB [address] [place] [address] * Magnesium Level (07/04/2025 7:30 AM EDT) Only the most recent of2 resultswithin the time period is included. ComponentValueRef RangeTest MethodAnalysis TimePerformed AtPathologist Signature Magnesium1.81.6 - 2.4 mg/dL07/04/2025 8:27 AM [facility] LABSpecimen (Source) Anatomical Location / LateralityCollection Method / VolumeCollection Time Received TimeBloodBLOOD SPECIMEN / UnknownVenipuncture / Wfrhyxl7007/04/2025 7:30 AM EDT07/04/2025 7:51 AM EDT Narrative Authorizing ProviderResult TypeResult StatusEric Wilfrido CASTAÑEDA BLOOD ORDERABLESFinal ResultPerforming OrganizationAddressCity/State/ZIP CodePhone Number LAB [address] [place] [address] * (ABNORMAL) Basic Metabolic Panel (07/04/2025 7:30 AM EDT) Only the most recent of2 resultswithin the time period is included. ComponentValueRef RangeTest MethodAnalysis TimePerformed AtPathologist Signature Cuklgd522982 - 145 mmol/L07/04/2025 8:27 AM EDTMH LABPotassium3.93.5 - 5.1 mmol/L07/04/2025 8:27 AM EDTMH IFAEpyettap83721 - 108 mmol/L07/04/2025 8:27 AM EDTMH TTXEcnspawqxbj0217 - 32 mmol/L07/04/2025 8:27 AM EDTMH LABAnion Sjd5596 - 20 mmol/L07/04/2025 8:27 AM EDTMH AVWOpyzxln541(H)65 - 99 mg/dL07/04/2025 8:27 AM EDTMH VNRUUV288 - 25 mg/dL07/04/2025 8:27 AM EDTMH LABCreatinine0.950.50 - 1.30 mg/dL07/04/2025 8:27 AM EDTMH ELOlOZH86>=60 mL/min/1.73 m207/04/2025 8:27 AM EDTMH LABComment:Estimated GFR was calculated using the 2020 CKD-EPI creatinine equation.BUN/Creatinine Ratio10.510.0 - 20.009 8:27 AM EDTMH LABCalcium9.28.4 - 10.2 mg/dL07/04/2025 8:27 AM EDTMH LABSpecimen (Source) Anatomical Location / LateralityCollection Method / VolumeCollection Time Received TimeBloodBLOOD SPECIMEN / UnknownVenipuncture / Dppufxo6907/04/2025 7:30 AM EDT07/04/2025 7:51 AM EDT Narrative LAB - 07/04/2025 8:27 AM EDT [facility] has implemented the eGFR calculation approach that does not have a coefficient for race that conforms to the NKF-ASN Task Force Recommendations. Authorizing ProviderResult TypeResult StatusThiago CASTAÑEDA BLOOD ORDERABLESFinal ResultPerforming OrganizationAddressCity/State/ZIP CodePhone Number LAB [address] [place] [address] * Echocardiogram complete w contrast (07/03/2025 8:10 AM EDT)ComponentValueRef RangeTest MethodAnalysis TimePerformed AtPathologist SignatureEF 52.4142011655591%Stellar CVAortic valve area3.22915994266241yl?Stellar CVAV peak gradient3.286278086223dyXbBTJB SYNAPSE CVAV mean gradient 1.6218317994862krCrJQZG SYNAPSE CVSpecimen (Source)Anatomical Location / LateralityCollection Method / VolumeCollection TimeReceived Time07/03/2025 7:31 AM EDT Narrative Stellar CV - 07/03/2025 9:40 AM EDT Summary [...] Thiago Bob Referring Physician: ? Rajan Gallegos Dispute Specialist: ? Jennifer Grace RDCS, RVT Attending Physician: ? Generic [facility] Patient Info Site Location: ? Exam Location: ? [facility] Name: ? Syed Howard Age: ? 59 years : ? 1965 Gender: ? Male Accession #: ? [id number] Ht: ? 191 cm Wt: ? 100 kg BSA: ? 2.31 m2 HR: ? 63 bpm BP: ? 126 / ? 82 mmHg Heart Rhythm: ? Sinus Rhythm Technical Quality: ? Fair, Technically difficult Exam Date: ? 07/03/2025 7:31 AM Patient Status: ? INPATIENT Exam Type: ? ECHOCARDIOGRAM COMPLETE W CONTRAST Study Info Indications ?R07.9 - Chest pain, ??unspecified [id number] BMI: ? 27.50 kg/m2 History/Risk Factors Chest [...] ? 12 cm ? PV Regurgitation Doppler DC Peak Gradient ?7 mmHg ? DC Peak End Diastolic Velocity ?133 cm/s Mitral Valve Name ? Value ?Normal MV Doppler MV Peak Velocity ?0.57 m/s ? MV Peak Gradient ?1 mmHg ? MV Mean Gradient ?0 mmHg ? MV VTI ? 15 cm ? MV Decel [place] ? 401 cm/s2 ? MV PHT ? [...] ? 16-34 RA Dimensions RA Systolic Major Meno Length (4C) ? 6.6 cm ? 2.1-2.7 [...] Physician: Thiago Bob Referring Physician: Rajan Gallegos Dispute Specialist: Jennifer Grace RDCS, RVT Attending Physician: Mesfin [facility] Patient Info Site Location: Exam Location: [facility] Name: Syed Howard Age: 59 years : 1965 Gender: Male Ht: 191 cm Wt: 100 kg BSA: 2.31 m2 HR: 63 bpm BP: 126 / 82 mmHg Heart Rhythm: Sinus Rhythm Technical Quality: Fair, Technically difficult Exam Date: 07/03/2025 7:31 AM Patient Status: INPATIENT Exam Type: ECHOCARDIOGRAM COMPLETE W CONTRAST Study Info Indications R07.9 - Chest pain, unspecified [id number] BMI: 27.50 kg/m2 History/Risk Factors Chest Pain: [...] PV VTI 12 cm PV Regurgitation Doppler DC Peak Gradient 7 mmHg DC Peak End Diastolic Velocity 133 cm/s Mitral Valve Name Value Normal MV Doppler MV Peak Velocity 0.57 m/s MV Peak Gradient 1 mmHg MV Mean Gradient 0 mmHg MV VTI 15 cm MV Decel [place] 401 cm/s2 MV PHT 39 ms MV [...] ml/m2 16-34 RA Dimensions RA Systolic Major Meno Length (4C) 6.6 cm 2.1-2.7 RA Area [...] ComponentValueRef RangeTest MethodAnalysis TimePerformed AtPathologist Signature Ventricular Uqxv30TMGTFCWKqguzl Qfhe24SDXZXPXP-G Tlzylllj763wqKSXPQYI Duration 110msMUSEQ-T Foxyxszz969hhTNRFGJU Calculation (Bezet)462msMUSEP Pxvj51pswmllw MUSER Meno-21degreesMUSET Tueg13cexzfygCGTUHlspphld (Source)Anatomical Location / LateralityCollection Method / VolumeCollection [...] TimeReceived TimeBloodBLOOD SPECIMEN / Unknown Venipuncture / Kpvhwei6407/03/2025 2:41 AM EDT07/03/2025 2:46 AM EDT Narrative Authorizing ProviderResult TypeResult StatusEric Wilfrido Bob DOLAB BLOOD ORDERABLESFinal ResultPerforming OrganizationAddressCity/State/ZIP CodePhone Number LAB [address] [place] [phone] * (ABNORMAL) CBC (07/03/2025 12:58 AM EDT)ComponentValueRef RangeTest Method Analysis TimePerformed AtPathologist SignatureWBC6.104.50 - 11.00 K/mcL 07/03/2025 1:08 AM [facility] LABRBC4.00(L)4.50 - 5.90 M/mcL07/03/2025 1:08 AM EDT GYFIydbvhkxrw33.213.5 - 17.5 g/dL07/03/2025 1:08 AM [facility] VLAJrddwjixwa09.8 41.0 - 53.0 %07/03/2025 1:08 AM EDTM TRTVDM520.5(H)80.0 - 100.0 fL07/03/2025 1:08 AM EDTM XLCZLH75.5(H)26.0 - 34.0 pg07/03/2025 1:08 AM [facility] YKHKAKN72.0 31.0 - 37.0 g/dL07/03/2025 1:08 AM [facility] JUPQjqzgakjd226189 - 400 K/[facility] 07/03/2025 1:08 AM [facility] LABRDW - CV12.511.6 - 14.8 %07/03/2025 1:08 AM [facility] TFACAE67.69.4 - 12.4 fL07/03/2025 1:08 AM EDTM LABNucleated RBC0.0%07/03/2025 1:08 AM [facility] LABNucleated RBC Abs0.000.00 - 0.00 K/[facility]07/03/2025 1:08 AM EDT LABSpecimen (Source)Anatomical Location / LateralityCollection Method / VolumeCollection TimeReceived TimeBloodBLOOD SPECIMEN / UnknownVenipuncture / Adzuyub6807/03/2025 12:58 AM EDT07/03/2025 1:03 AM EDT Narrative Authorizing ProviderResult TypeResult StatusEric Tamelaelsagianna Vicci [employer] Merchclarke DOLThe [employer] BLOOD ORDERABLESFinal ResultPerforming OrganizationAddressCity/State/ZIP CodePhone Number LAB [address] [place] [address] * Hemoglobin A1c (07/03/2025 12:58 AM EDT)ComponentValueRef RangeTest Method Analysis TimePerformed AtPathologist SignatureHemoglobin A1C5.04.2 - 5.6 % 07/03/2025 2:12 AM EDTM LABEstimated Average Cxhfkbo3015 - 114 mg/dL 07/03/2025 2:12 AM [facility] LABComment:Specimen (Source)Anatomical Location / LateralityCollection Method / VolumeCollection TimeReceived TimeBloodBLOOD SPECIMEN / UnknownVenipuncture / Qqtbcad5007/03/2025 12:58 AM EDT07/03/2025 1:03 AM EDT Narrative Authorizing ProviderResult TypeResult StatusEric Brittza Kiza DOLAB BLOOD ORDERABLESFinal ResultPerforming OrganizationAddressCity/State/ZIP CodePhone Number LAB [address] [place] [address] * (ABNORMAL) Lipid Panel (07/03/2025 12:58 AM EDT)ComponentValueRef RangeTest MethodAnalysis TimePerformed AtPathologist PypvjnxaqXddpaxeztxe040760 - 199 mg/dL07/03/2025 1:40 AM [facility] LABComment: National Cholesterol Education Program Guidelines: Cholesterol Desirable: <200 mg/dL Borderline High: ?200-239 mg/dL High: ? greater than or equal to 240 mg/dL Flzuvfivytqig041(H)30 - 150 mg/dL07/03/2025 1:40 AM [facility] LABComment: National Cholesterol Education Program Guidelines: ??Triglyceride Normal: <150 mg/dL Borderline High: ?150-199 mg/dL High: ? 200-499 mg/dL Very High: ?greater than or equal to 500 mg/dL DVF7498 - 59 mg/dL07/03/2025 1:40 AM [facility] LABComment: National Cholesterol Education Program Guidelines: HDL Cholesterol Low: <40 mg/dL Near Optimal: ?40-59 mg/dL High: ?greater than or equal to 60 mg/dL Chol/HDL Ratio2.3lzomb7207/03/2025 1:40 AM [facility] LABComment: Males Cholesterol/HDL Ratio: Average risk: ? 5.0 1/2 average risk: ?? 3.4 2 x average risk: ?? 9.6 LDL Plnewojjxg6922 - 130 mg/dL07/03/2025 1:40 AM [facility] LABComment: National Cholesterol Education Program Guidelines: LDL Cholesterol Optimal: <100 mg/dL Near Optimal/above Optimal: ?100-129 mg/dL Borderline High: ? 130-159 mg/dL High: ?160-189 mg/dL Very High: ? greater than or equal to 190 mg/dL Non HDL Xmzzbklqtbn12iv/dL07/03/2025 1:40 AM EDH LABComment: National Cholesterol Education [...] ORDERABLESFinal ResultPerforming OrganizationAddressCity/State/ZIP CodePhone Number LAB [address] [facility] [place] [address] from Last 3 Months Insurance Advance Directives For more information, please contact: [phone] * Full Code (Latest Code Status on File) Date ActivatedDate InactivatedComments07/04/2025 1:56 PM07/04/2025 9:05 PM * Full Code Date ActivatedDate InactivatedComments07/03/2025 12:30 AM07/04/2025 1:56 PM * Full Code Date ActivatedDate InactivatedComments06/26/2019 1:45 PM07/03/2025 12:06 AM Care Teams Team MemberRelationshipSpecialtyStart DateEnd Date No, Physician [facility] PCP - General07/03/25
--- OUTSIDE RECORDS SUMMARY | 2025-08-21 10:13 | XMS_ITS | Patient Health Record ---
Author Organization [facility] Address [address] [place] [address] Care Team Providers Care Solar Sales Manager Name Role Phone Flaco Molinaie Primary Care Provider [phone] Reason For Referral No Information Problems Problem Type SNOMED Code ICD Code Onset Dates Problem Status W/U Status Risk Notes Problem Acute stress disorder (78478189) Acute st ress disorder (F43.0) Activeconfirmed Plan Of Treatment No Information Insurance Providers Payer Name Payer Address Payer Phone Subscriber Number Group Number Insured Name Patient Relationship to Insured Coverage Start Date Coverage End Date [employer] [address] [place] [phone] [id number] SHELLI MILLIGAN Self - patient is the insured 3
--- OUTSIDE RECORDS SUMMARY | 2025-08-21 10:13 | XMS_ITS | Clinical Summary ---
Author Organization [facility] Address [address] [place] [address] Care Team Providers Care Internship Name Role Phone Nelida Stock PC MAINTENANCE TECHNICIAN-Bi Primary Care Provider [phone] Allergies Active AllergyReactionsCriticalityNoted DateCommentsBee Venom Protein (Honey Bee)Bmbrpgs0509/05/2023olchicineOther,Vjzxuhb0110/04/2013 Sleepiness Sleepiness Sleepiness Sleepiness Pollen RbeninmvPdzbfhv59/14/2023 Medications MedicationSigDispense QuantityRefillsLast FilledStart DateEnd DateStatus buPROPion [...] ctive Additional Information Patient not taking.Reported on 08/21/2025 dofetilide (Tikosyn) 250 mcg capsule Indications:PAF (paroxysmal atrial fibrillation) (CMS/HCC)TAKE 1 CAPSULE (250 MCG) BY MOUTH TWO TIMES DAILY. 60 capsule 1105Active pantoprazole (ProtoNix) 40 mg EC tablet Take 40 mg by mouth in the morning.5Active furosemide (Lasix) 40 mg tablet Indications:Acute on chronic diastolic heart failure (CMS/HCC)Take 1 tablet (40 mg) by mouth two times daily. Can take an additional tablet as needed 225 tablet /6Active Additional Information Patient taking differently:40 mg oral3 times daily, Can take an additional tablet as needed, Reported on 08/21/2025 furosemide (Lasix) 40 mg tablet Indications:Chronic diastolic [...] 90 tablet Discontinued Active Problems ProblemNoted DateDiagnosed DnwoJkdbrofw83/21/3541Vsioovtk22/21/2025Fatigue 08/12/2025Night sweat08/12/2025ervical xahcvtmzygsbr28/23/2025Left elbow pain 07/15/2025hest pain07/03/2025ute stress khrdihtm08/10/7324Wutecjt53/10/2025 Colon cancer /10/2025ute ischemia of small intestine due to thrombosis of mesenteric vein10/08/2024trial rvrsuhbizxqo41/17/2024History of kmlchz6610/08/2024Ischemic bowel exzdswa0910/08/2024S/P cervical discectomy 10/08/2024Superior mesenteric artery hwghrkytid92/17/2024trial flutter 08/13/2024cute abdominal pain2024Neck pain06/12/2024t increased risk of exposure to COVID-19 virus04/18/2024trial flutter with rapid ventricular yywydhuh64/27/4260Iniw11/27/2024Gouty sawmmeetc22/27/2790Mfxbxrbj40/27/2024 Ischemia and infarction of mgsvuk7004/18/2024Left arm /27/2024Left shoulder pain04/18/2024Macrocytosis without vojxex0304/18/2024Numbness of fingers 04/18/2024Shortness of hebigt0004/18/2024cid cduztg90rthritis arpal tunnel mzkujcrc73hanges in skin vbyhkak98DD (degenerative disc disease), hnmftnil44/08/2023 09/29/2023ysphagia, uispgcwxlqq58ystonia musculorum bdhyidtyp10MyalgiaRight sided weakness Spasmodic laopdyuifuy63Stroke due to embolism of basilar kdneko78Impairment of gykntdp4909/20/2023 09/29/2023Stroke due to occlusion of basilar pizixn64Edema cute on chronic diastolic heart henylon99 Acute pulmonary edema Overview (09/29/2023): Last Assessment & Plan: Findings on chest x-ray and CT abdomen suggestive of vascular congestion and heart failure. Previous history of heart failure. Reviewed right left heart catheterization from [facility] in 2016. Diastolic heart failure at [...] unfortunately his mother's side she is a [place] immigrant and does not know much about her family history. Elevated lrqjyiax59 Overview (09/29/2023): Last Assessment & Plan: Trivial elevation, unclear etiology Possibly from renal infarct? D-dimer negative, unlikely pulmonary embolism Suspect related to diastolic dysfunction and decompensated diastolic heart failure. No coronary artery disease based on heart catheterization from 12/2016 only with myocardial bridging segments. 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); Aortic root dilation; Renal infarction; Primary hypertension; Coronary-myocardial bozjbc7408/13/2025Orders Only [facility] [address] [place] [address] Eloy Cruz MD 08/12/2025 1:40 PM EDTFollow-Up [facility] [address] [place] [address] Jessica Rausch CNP Paroxysmal atrial fibrillation (CMS/HCC) (Primary Dx); Acute on chronic diastolic heart failure (CMS/HCC); Atrial flutter, unspecified type (CMS/HCC); Status post catheter ablation of atrial fibrillation; 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); Aortic root dilation; Renal infarction; Primary hypertension; Coronary-myocardial rkayhe6308/12/2025Orders Only [facility] [address] [place] [address] Alecia Rodrigues MA Acute on chronic diastolic heart failure (CMS/HCC) (Primary Dx)07/30/2025Orders Only [facility] [address] [place] [phone] Bettina Gordon RN Acute on chronic diastolic heart failure (CMS/HCC) (Primary Dx)07/23/2025 8:30 AM EDT - 07/23/2025 12:00 PM EDTSurgery [facility] [place] [facility] [address] [place] [phone] Jose Miguel Spivey MD Ablation a-fib w/ pvi [52777 (CPT??)]07/23/2025 8:24 AM EDTAnesthesia Event [facility] [place] [facility] [address] [place] [phone] Luis Alberto David MD Meehl, Austin, MD 07/23/2025 7:22 AM EDT - 07/23/2025 2:25 PM EDTHospital Encounter [facility] [address] [place] [phone] Jose Miguel Spivey MD Paroxysmal atrial fibrillation (CMS/HCC) Discharge Disposition: Home or Self Care (01)07/23/20253539Pjhgfg17/19/2025Telephone [facility] [address] [facility] [place] [address] Alecia Rodrigues MA 07/09/20252764Owsvjo86/11/2025Refill [facility] [address] [place] [phone] Jose Miguel Spivey MD PAF (paroxysmal atrial fibrillation) (CMS/HCC)07/01/2025Orders Only [facility] [address] [place] [phone] Alecia Rodrigues MA Paroxysmal atrial fibrillation (CMS/HCC) (Primary Dx)06/30/2025Telephone [facility] [address] [place] [phone] Alecia Rodrigues MA 06/23/2025Orders Only [facility] [address] [place] [phone] Felipe Sorto MD 06/20/2025 8:00 AM EDTAncillary Procedure [facility] [address] [place] [phone] Awareness of dwckgesnjg74/27/2025[facility] [address] [place] [phone] Sabina Lopez MA Chronic diastolic heart failure (CMS/HCC)from Last 3 Months Family History Medical HistoryRelationNameCommentsCoronary artery diseaseFatherCancerMaternal GrandfatherCancerMaternal GrandmotherCancerMotherRelationNameStatusComments FatherDeceasedMaternal GrandfatherMaternal GrandmotherMotherAlive Social History Tobacco UseTypesPacks/DayYears UsedDateSmoking Tobacco: FormerCigarettesPassive Smoke Exposure: PastSmokeless Tobacco: Never Tobacco Cessation:Counseling Given: Not Answered Alcohol UseStandard Drinks/WeekCommentsYes3 (1 standard drink = 0.6 oz pure alcohol)3 times per week beerUT Safety & EnvironmentAnswerDate RecordedFear of Current or Ex-PartnerNot on file12/14/2023Emotionally AbusedNot on file 12/14/2023hysically AbusedNot on file12/14/2023Sexually AbusedNot on file 12/14/2023hysically or Sexually AbusedNot on file12/14/2023Sex and Gender InformationValueDate RecordedSex Assigned at MqmfnZqvy20/01/2025 7:22 AM EDT Legal MtrTszj8804/20/2022 11:54 PM EDTGender UsxtbwveJapj43/01/2025 7:22 AM EDT Sexual OrientationHeterosexual or Anailrcu64/01/2025 7:22 AM EDT Last Filed Vital Signs Vital SignReadingTime TakenCommentsBlood Hfouadip331/7408/21/2025 9:39 AM EDT Jtnwp350908/21/2025 9:39 AM DYAFaturkeiqgg92 ??C (96.8 ??F)07/23/2025 11:15 AM EDT Respiratory Scdd8802 12:15 PM EDTOxygen Clgfyqoayk38%08/21/2025 9:39 AM EDTInhaled Oxygen Concentration--Zycetx553 kg (227 lb)08/21/2025 9:39 AM EDT Yjcdvr275.5 cm (6' 3 )08/21/2025 9:39 AM EDTBody Mass Index28.371 9:39 AM EDT Plan of Treatment Health MaintenanceDue DateLast DoneCommentsCT Vahsicgzxiqs1966FIT-DNA 1966FIT1966FOBT07/16/19667531Xmmxfnmdnhvjc1966Depression Screening 1978Pneumococcal Vaccine: Pediatrics (0 to 5 Years) and At-Risk Patients (6 to 64 Years) (1 of 2 - PCV)1985Adult Ieaafqo9607/16/1988Colonoscopy /Colorectal Cancer Txiaqqqxh07/14/2024OVID-19 Vaccine ( season)509/, 10/21/2021, 01/01/2021, Additional history existsInfluenza Vaccine (#1)06/23/2025Hepatitis B YcykkxczYzwlilfwv02/30/2008, 11/05/2007, 10/04/2007Zoster RaxyukxrAcfqmgrxb24/04/2024, 01/09/2024HIB Vaccines Aged OutNo longer eligible based [...] ImplantedTypeAreaManufacturerDevice IdentifierShelf Expiration DateModel / Serial / LotMonitor,Cardiac,Lux,Dxii+[facility] - [id number] - [id number] Implanted:Qty: 1 on 09/16/2024 by Jose Miguel Spivey [facility] HospitalImplantable Loop RecorderBoston Kjzkjxxmvp84/08/[id number] / [id number] / Procedures Procedure NamePriorityDate/TimeAssociated DiagnosisCommentsECG 12 LEAD UNIT BGKPLMQVTNgwxjlg04/21/2025 2:06 PM EDT Paroxysmal atrial fibrillation (CMS/HCC) ECG 12-JVJLWccsqqk74/21/2025 1:30 PM EDTECG 12-EDEBCbydiph30/01/2025 11:34 AM EDT ABLATION A-FIB W/ RDTCdyudnb02/01/2025 11:07 AM EDT Paroxysmal atrial fibrillation (CMS/HCC) ACTIVATED CLOTTING ANVLWqwnfyi29/01/2025 10:58 AM EDT RMVOHCQRMPNxrytgn29/01/2025 10:32 AM EDT TMRTVAFCIQWUoktsld14/01/2025 10:32 AM EDT HIGH SENSITIVITY TROPONIN ZKdwkdey82/01/2025 10:32 AM EDT BILIRUBIN, PPWKTQEtvwcip79/01/2025 10:32 AM EDT BILIRUBIN, ILXNTOzclacp43/01/2025 10:32 AM EDT LACTATE INHZFUNOHSNHTXqqfook59/01/2025 10:32 AM EDT ACTIVATED CLOTTING HLFAZlokrhb91/01/2025 10:22 AM EDT ACTIVATED CLOTTING BLXOQaagcvi00/01/2025 10:03 AM EDT ACTIVATED CLOTTING DBKBEcjzynt66/01/2025 9:43 AM EDT ANESTHESIA ARTERIAL LINE ZKXGMUWWXCzvplye04/01/2025 8:56 AM EDT UT AN ELECTIVE ENDOTRACHEAL RDMVJDPzmpnio48/01/2025 8:46 AM EDT ECG 12-LFFQZzejhwr64/01/2025 8:31 AM EDT POCT GLUCOSE METER UNSOLICITED KVZREICNrctywt05/01/2025 8:00 AM EDT PROTIME-MNERntkoup53/01/2025 7:54 AM EDT CARDIAC DEVICE CHECK CHECK - JANBCTJmbqmod72/04/2025 9:40 AM EDT Awareness of heartbeats CARDIAC DEVICE CHECK - REMOTE - LOOP RECORDER (ILR)Mkhiaum4806/23/2025 12:00 AM EDTCARDIAC DEVICE CHECK CHECK - YOZCTCDscoqwu86/07/2025 2:54 PM EDT Awareness of heartbeats from Last 3 Months Results * ECG 12 lead unit performed (08/12/2025 2:06 PM EDT)Specimen (Source)Anatomical Location / LateralityCollection Method / VolumeCollection TimeReceived Time Narrative Authorizing ProviderResult TypeResult StatusMelsybil Rausch [facility] ORDERABLES Final Result * ECG 12 lead (08/12/2025 1:30 PM EDT) Only the most recent of3 resultswithin the time period is included. Narrative Authorizing ProviderResult TypeResult StatusHistorical Provider MDECG ORDERABLES Final Result * ABLATION A-FIB W/ PVI (07/23/2025 11:07 AM EDT)Anatomical RegionLaterality ModalityOtherSpecimen (Source)Anatomical Location / LateralityCollection Method / VolumeCollection TimeReceived Time Narrative 07/23/2025 11:08 AM EDT Table formatting from the original result was not included. ATRIAL FIBRILLATION ABLATION PROCEDURE NOTE DATE OF PROCEDURE: ??07/23/2025 PERFORMING PHYSICIAN: Dr. Jose Miguel Spivey FILE DRAWER FINISHER: LORIN CONSENT: Patient NAME OF THE PROCEDURE: [...] MD Cardiac Electrophysiology ?? Authorizing ProviderResult TypeResult StatusJose Miguel Spivey [facility] ELECTROPHYSIOLOGY PROCEDURESFinal Result * Activated clotting time (07/23/2025 10:58 AM EDT) Only the most recent of4 resultswithin the time period is included. ComponentValueRef RangeTest MethodAnalysis TimePerformed AtPathologist Signature Activated Clotting Jfcu04720 - 152 07/23/2025 11:00 AM [facility] ([facility])Specimen (Source)Anatomical Location / LateralityCollection Method / VolumeCollection TimeReceived TimeBloodVenous blood specimen / Kkpeqde8307/23/2025 10:58 AM EDT1 11:00 AM EDT Narrative Authorizing ProviderResult TypeResult StatusJose Miguel Spivey MDLAB POINT OF CARE TEST DOCKED DEVICE UNSOLICITED RESULTSFinal ResultPerforming OrganizationAddress City/State/ZIP CodePhone Number [facility]) [address] [place] [address] * (ABNORMAL) High Sensitivity Troponin I (07/23/2025 10:32 AM EDT)ComponentValue Ref RangeTest MethodAnalysis TimePerformed AtPathologist SignatureHigh Sensitivity Troponin I84(HH)<20 ng/L1 12:25 PM [facility] ([facility])Specimen (Source)Anatomical Location / LateralityCollection Method / VolumeCollection TimeReceived TimeBloodVenous blood specimen / UnknownArterial Line / Qysontt8207/23/2025 10:32 AM EDT1 10:32 AM EDT Narrative Authorizing ProviderResult TypeResult StatusJose Miguel BOTELLO BLOOD ORDERABLES Final ResultPerforming OrganizationAddressCity/State/ZIP CodePhone Number [facility]) [address] [place] [address] * (ABNORMAL) Hemoglobin (07/23/2025 10:32 AM EDT)ComponentValueRef RangeTest MethodAnalysis TimePerformed AtPathologist WxenztynpQeirorbjzq39.2(L)13.0 - 17.0 g/dL07/23/2025 10:53 AM [facility])Specimen (Source) Anatomical Location / LateralityCollection Method / VolumeCollection Time Received TimeBloodVenous blood specimen / UnknownArterial Line / Unknown 07/23/2025 10:32 AM EDT1 10:32 AM EDT Narrative Authorizing ProviderResult TypeResult StatusJose Miguel BOTELLO BLOOD ORDERABLES Final ResultPerforming OrganizationAddressCity/State/ZIP CodePhone Number [facility]) [address] [place] [address] * (ABNORMAL) Lactate dehydrogenase (07/23/2025 10:32 AM EDT)ComponentValueRef RangeTest MethodAnalysis TimePerformed AtPathologist PegkbrctbPK075(L)140 - 271 U/L1 11:11 AM [facility])Specimen (Source) Anatomical Location / LateralityCollection Method / VolumeCollection Time Received TimeBloodVenous blood specimen / UnknownArterial Line / Unknown 07/23/2025 10:32 AM EDT1 10:32 AM EDT Narrative Authorizing ProviderResult TypeResult StatusJose Miguel BOTELLO BLOOD ORDERABLES Final ResultPerforming OrganizationAddressCity/State/ZIP CodePhone Number [facility] ([facility]) [address] [place] [address] * Haptoglobin (07/23/2025 10:32 AM EDT)ComponentValueRef RangeTest Method Analysis TimePerformed AtPathologist XkmntjkqfGegusgebaje866.032.0 - 197.0 mg/dL07/23/2025 1:17 PM [facility]AC[facility] ([facility])Comment:Testing performed using a new methodology, turbidimetry. Normal ranges have been updated. Old normal range was 26-164 mg/dL.Specimen (Source)Anatomical Location / LateralityCollection Method / VolumeCollection TimeReceived TimeBloodVenous blood specimen / UnknownArterial Line / Ehducrw2007/23/2025 10:32 AM EDT 07/23/2025 10:32 AM EDT Narrative Authorizing ProviderResult TypeResult StatusJose Miguel BOTELLO BLOOD ORDERABLES Final ResultPerforming OrganizationAddressCity/State/ZIP CodePhone Number [facility] ([facility]) [address] [facility] [place] [address] * Bilirubin, direct (07/23/2025 10:32 AM EDT)ComponentValueRef RangeTest Method Analysis TimePerformed AtPathologist SignatureBilirubin, Direct0.10 - 0.2 mg/dL07/23/2025 11:11 AM EDAC[facility] ([facility])Specimen (Source) Anatomical Location / LateralityCollection Method / VolumeCollection Time Received TimeBloodVenous blood specimen / UnknownArterial Line / Unknown 07/23/2025 10:32 AM EDT1 10:32 AM EDT Narrative Authorizing ProviderResult TypeResult StatusJose Miguel Spivey MDLAB BLOOD ORDERABLES Final ResultPerforming OrganizationAddressCity/State/ZIP CodePhone Number [facility] ([facility]) [address] [facility] [place] [address] * Bilirubin, total (07/23/2025 10:32 AM EDT)ComponentValueRef RangeTest Method Analysis TimePerformed AtPathologist SignatureTotal Bilirubin0.60.3 - 1.0 mg/dL07/23/2025 11:11 AM EDTPRES[facility] ([facility])Specimen (Source) Anatomical Location / LateralityCollection Method / VolumeCollection Time Received TimeBloodVenous blood specimen / UnknownArterial Line / Unknown 07/23/2025 10:32 AM EDT1 10:32 AM EDT Narrative Authorizing ProviderResult TypeResult StatusJose Miguel BOTELLO BLOOD ORDERABLES Final ResultPerforming OrganizationAddressCity/State/ZIP CodePhone Number [facility] ([facility]) [address] [facility] [place] [address] * ANESTHESIA ARTERIAL LINE PLACEMENT (07/23/2025 8:56 [...] procedure well with no complications. Staffing Performed: resident/LPN RN/CAA Anesthesiologist: Luis Alberto David MD Resident/LPN RN: Jarret Perez MD Performed by: Jarret Perez MD Authorized by: Luis Alberto David MD ?? Authorizing ProviderResult TypeResult StatusMutiffany David MDANESTHESIA ORDERABLESFinal Result * UT AN ELECTIVE ENDOTRACHEAL AIRWAY (07/23/2025 8:46 AM EDT) Narrative Luis Alberto David MD - 07/23/2025 8:46 AM EDT Luis Alberto David MD 07/23/2025 12:28 PM Airway Date/Time: 07/23/2025 8:46 AM Reason: elective Airway not difficult General Information and Staff Patient location during procedure: [place] Anesthesiologist: Luis Alberto David MD Resident/LPN RN/CAA: Jarret Perez MD Performed: resident/LPN RN/JENNIFER Patient Condition Indications for airway management: anesthesia [...] EDT)ComponentValueRef RangeTest Method Analysis TimePerformed AtPathologist SignatureGlucose IQK21707 - 105 mg/dL 07/23/2025 8:15 AM EDTPRES[facility] ([facility])Comment:ngrothaSpecimen (Source)Anatomical Location / LateralityCollection Method / VolumeCollection TimeReceived TimeBloodCapillary blood specimen / Wplhbhc2307/23/2025 8:00 AM EDT 07/23/2025 8:15 AM EDT Narrative [facility] ([facility]) - 07/23/2025 8:15 AM EDT Waived Testing in the ED is performed under the ED CLIA certificate #[id number]. Authorizing ProviderResult TypeResult StatusJose Miguel BOTELLO BLOOD ORDERABLES Final ResultPerforming OrganizationAddressCity/State/ZIP CodePhone Number [facility] ([facility]) [address] [place] [address] * Protime-INR (07/23/2025 7:54 AM EDT)ComponentValueRef RangeTest MethodAnalysis TimePerformed AtPathologist ZuritdkuvEkeijgu28.912.3 - 14.8 Wftnlfc4607/23/2025 8:23 AM EDTPRES[facility] ([facility])INR1.070.90 - 1.1010 8:23 AM EDT [facility] ([facility])Comment: [facility] RECOMMENDED INR FOR WARFARIN THERAPY CONDITION [...] TimeReceived TimeBloodVenous blood specimen / UnknownVenipuncture / Gsagtwm6907/23/2025 7:54 AM EDT1 8:04 AM EDT Narrative Authorizing ProviderResult TypeResult StatusPamichelle BOTELLO BLOOD ORDERABLES Final ResultPerforming OrganizationAddressCity/State/ZIP CodePhone Number [facility] ([facility]) [address] [place] [address] * CARDIAC DEVICE CHECK - REMOTE - LOOP RECORDER (ILR) (06/26/2025 9:40 AM EDT) Only the most recent of2 resultswithin the time period is included. Specimen (Source)Anatomical Location / LateralityCollection Method / Volume Collection TimeReceived Time Narrative Authorizing ProviderResult TypeResult StatusPamichelle Patric [facility] IMPLANTABLE CARDIAC DEVICE PROCEDURESFinal ResultPerforming OrganizationAddressCity/State/ZIP Code Phone Number [facility] * Cardiac device check - Remote loop recorder (ILR) (06/23/2025 12:00 AM EDT) Anatomical RegionLateralityModalityOtherSpecimen (Source)Anatomical Location / LateralityCollection Method / VolumeCollection TimeReceived Time06/23/2025 Narrative Authorizing ProviderResult TypeResult StatusFelipe Sorto [facility] IMPLANTABLE CARDIAC DEVICE PROCEDURESFinal Result from Last 3 Months Insurance Advance Directives * Full Code (Latest Code Status on File) Date ActivatedDate JkxwiloiynbPbaywajs91/1/2025 11:18 AM07/23/2025 5:38 PM Care Teams Team MemberRelationshipSpecialtyStart DateEnd Date Nelida Stock [place] [address] PCP - GeneralNurse Xppfdlvbdmxd28/20/25
--- OUTSIDE RECORDS SUMMARY | 2025-08-21 10:13 | XMS_ITS | Clinical Summary ---
Author Organization [facility] Address [address] [place], [place] [id number] Care Team Providers Care Marine Engine Mechanic Name Role Phone Taina Colindres MD Primary Care Provider [phone] Allergies Active AllergyReactionsCriticalityNoted DateCommentsBeesOther: See Comments 12/26/2012 Mild, swelling,reddness ColchicineOther: See Zkmxwhpk11/13/2013 Sleepiness Medications MedicationSigDispense QuantityRefillsLast FilledStart DateEnd DateStatus [...] InformationValueDate RecordedSex Assigned at BirthNot on fileLegal FwxSudr1112/04/2012 4:09 PM ESTGender IdentityNot on fileSexual OrientationNot on file Last Filed Vital Signs Vital SignReadingTime TakenCommentsBlood Yzbqlmop398/8704 2:17 PM EDT Kphnh381401/23/2014 2:17 PM OULCmbugyzaida98.7 ??C (98.1 ??F)01/23/2014 2:17 PM EDTRespiratory Rate--Oxygen Urmxrefszy79%12/26/2012 11:09 AM ESTInhaled Oxygen Concentration--Ubsbny20.6 kg (197 lb 9.6 oz)01/23/2014 2:17 PM PPUHtxtjo468.3 cm (6' 2.92 )01/23/2014 2:17 PM EDTBody Mass Index24.75001/23/2014 2:17 PM EDT Plan of Treatment Health MaintenanceDue DateLast DoneCommentsAnxiety Rbwqghfyq30/24/1984Depression Snomcppel81/24/1984HIV Uiervjwjt84/24/1984Hepatitis C Espndmcxk98/24/1984 DTaP,Tdap,Td Vaccine (1 - Tdap)1985Lipid Wglmxoqrk33/24/2001CT Izxkxvalsqmt35/24/2011Cologuard (FIT-DNA)07/16/20118696Cxkfhcuinim96/24/2011 Colorectal Cancer Npbdobfrv63/24/2011Diabetes Skosdqiql21/24/2011Fecal Occult Blood2011Prostate Cancer Screening Stdwsxwejh85/24/2011Sigmoidoscopy 2011Pneumococcal Vaccine: 50+ (1 of 1 - PCV)2016Shingrix Vaccine (1 of 2)2016Covid-19 Vaccine (1 - 2024- season)2025Influenza Vaccine (#1)2025 Insurance Care Teams Team MemberRelationshipSpecialtyStart Date Taina Colindres MD [address] [place] [address] PCP - GeneralFamily Medicine12/04/12
--- OUTSIDE RECORDS SUMMARY | 2025-08-21 10:14 | XMS_ITS | Clinical Summary ---
Author Organization [facility] Address [address] [place] [address] Care Team Providers Care Heating Repair Technician Name Role Phone Nelida Stock BLASTING ENTRYMAN Unavailable ToiGiovana turner Unavailable [phone] Allergies Active AllergyReactionsCriticalityNoted DateCommentsBee QspvtHzvsiub65/14/2023 ColchicineOther,Pjkwlhm2610/04/2013 Sleepiness Sleepiness Medications MedicationSigDispense QuantityRefillsLast FilledStart DateEnd DateStatus allopurinol (Zyloprim) 300 MG tablet Take 300 mg by mouth DailyActive apixaban (Eliquis) 5 MG tablet Twice daily09/13/2023ctive Aspirin Low Dose 81 MG EC tablet Take 81 mg by mouth Daily10/17/2023ctive atorvastatin (Lipitor) 80 MG tablet Every eotjwmx0104/12/2024ctive buPROPion SR (Wellbutrin SR) 150 MG 12 [...] Assigned at BirthMale 02/12/2024 11:52 AM EDTLegal QciIofj5201/04/2023 7:07 PM EDTGender IdentityMale 02/12/2024 11:52 AM EDTSexual ThlfhofnfdbIbbhxkj77/22/2024 11:52 AM EDT Last Filed Vital Signs Vital SignReadingTime TakenCommentsBlood Tyqzdnyd342/7602 1:39 PM EST Beuax9838 1:39 PM ESTTemperature--Respiratory Rate--Oxygen Mzcttpfuwe34% 11/28/2024 1:39 PM ESTInhaled Oxygen Concentration--Ttdykb01.9 kg (220 lb 3.2 oz)08/14/2024 1:49 PM AVLYhyumi675.4 cm (6' 1 )08/14/2024 1:49 PM EDTBody Mass Index29.0508/14/2024 1:49 PM EDT Plan of Treatment Not on file Insurance Care Teams Team MemberRelationshipSpecialtyStart DateEnd Date Nelida Stock NP [address] [place] [address] Referring PhysicianFamily Medicine07/16/24 Giovana Cm DO [address] [place] [address] Referring PhysicianNeurolog11/28/24
--- OUTSIDE RECORDS SUMMARY | 2025-08-21 10:14 | XMS_ITS | Clinical Summary ---
Author Organization [facility] Address [address] 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 Name Role Phone Nelida Stock APRN-UPHOLSTERY SEWER Primary Care Provider [phone] Allergies Active AllergyReactionsCriticalityNoted DateCommentsBee Venom Protein (Honey Bee)Kqpouec8909/05/20238604ZjzuflwzmaNvmzp12/13/2013 Sleepiness Pollen CvggfjujJjoyiga39/14/2023 Medications MedicationSigDispense QuantityRefillsLast FilledStart DateEnd DateStatus traMADol [...] ProblemNoted DateDiagnosed DateCerebrovascular accident (CVA)09/20/2023 Impairment of wxrvdrl9209/20/2023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 09/04/2023 Resolved Problems ProblemNoted DateDiagnosed DateResolved DateTIA (transient ischemic attack) /Status post CVA1/ Encounters DateTypeDepartmentCare AwetOmdxtbprhna61/04/2025Refill [facility] [address] [facility] [address] [place] [id number] Terell Enriquez MD 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 (Multi); Thalamic pain celltnxc23/10/2025 3:11 PM EDT - 07/02/2025 11:22 PM EDTEmergency [facility] [address] [place] [address] Rajan Gallegos, NSTEMI (non-ST elevated myocardial infarction) (Multi) (Primary Dx) Discharge Disposition: Short Term Acute Aobrjdfk00/10/4575Tvecng54/03/2025Refill [facility] [address] [facility] [address] [place] [phone] Terell Enriquez MD Stroke due to occlusion [...] do you have a drink containing alcohol?Patient vkafraio66/20/2023Q2: How many drinks containing alcohol do you have on a typical day when you are drinking?Patient declined 10/11/2023Q3: How often do you have six or more drinks on one occasion?Patient iifrobjh57/20/2023Overall Financial Resource Strain (CARDIA)AnswerDate Recorded How hard is it for you to pay for the very basics like food, housing, medical care, and heating?Not hard at all3PHQ-2AnswerDate RecordedPatient Health Questionnaire-2 Yazil233/20/2023PRAPARE - TransportationAnswerDate RecordedIn the past 12 months, [...] InformationValueDate RecordedSex Assigned at BirthNot on fileLegal YfmWxzl41/25/2022 1:29 PM ESTGender IdentityNot on fileSexual OrientationNot on file Last Filed Vital Signs Vital SignReadingTime TakenCommentsBlood Gatrbygo566/8109 11:00 PM EDT Tecfx790407/02/2025 11:00 PM LMKVedevmyzltj45.6 ??C (97.9 ??F)07/02/2025 3:24 PM EDTRespiratory Aivd364007/02/2025 11:00 PM EDTOxygen Wcwgkxezqf68%07/02/2025 11:00 PM EDTInhaled Oxygen Concentration--Ulywwl84.8 kg (220 lb)07/02/2025 3:24 PM EDT Cwzrtk692.5 cm (6' 3 )07/02/2025 3:24 PM EDTBody Mass Index27.509 3:24 PM EDT Plan of Treatment Health MaintenanceDue DateLast DoneCommentsCT Eahrpxeoxcyt1966FIT-DNA (Cologuard)1966FIT1966HIV Zetpyyaez98/24/9161Fmdkqzqbvcghu1966 Yearly Adult Rzggxvaf1966MMR Vaccines (1 of 1 - Standard series)1967 Hepatitis C Lxybhfuhr66/24/1984Pneumococcal Vaccine (1 of 2 - PCV)1985 DTaP/Tdap/Td Vaccines (1 - Tdap)1988PSA Prostate Cancer Screening 07/16/20168752Iwplrftwjmw07/14/202402/Colorectal Cancer Ppoeujnig25/14/2024 Luysticgcsvkyu22/19/202506/, 10/12/2023, 09/05/2023Influenza Vaccine (#1) 5COVID-19 Vaccine (2 - season)09/01/reatinine Level/07/2025, 09/11/2024, 10/11/2023, Additional history exists Diabetes Gmxgjwbsk68, 09/11/2024, 10/12/2023, Additional history existsPotassium Level, 09/11/2024, 10/11/2023, Additional history existsLipid Panel, 09/04/2023Hepatitis B CgmdvoldFfmhyrhnr86/30/2008, 11/05/2007, 10/04/2007Zoster VaccinesCompleted 03/26/2024, 01/09/2024HIB VaccinesAged OutNo [...] topic Procedures Procedure NamePriorityDate/TimeAssociated DiagnosisCommentsSERIAL TROPONIN, 1 KRYFKPJS12/10/2025 4:34 PM EDT ECG 12-HZITNRSA31/10/2025 4:15 PM EDT SERIAL TROPONIN-AURSMJCMOET61/10/2025 3:37 PM EDT PROTIME-EOQZQCC4107/02/2025 3:37 PM EDT TROPONIN SERIES- (INITIAL, 1 HR)STAT07/02/2025 3:37 PM EDT COMPREHENSIVE METABOLIC EVEZEAQFY55/10/2025 3:37 PM EDT CBC WITH AUTO ANZNMOZQDEMGYFZB03/10/2025 3:37 PM EDT XR CHEST 1 XKVBPBNP19/10/2025 3:32 PM EDT ECG 12-SJVWDLHU21/10/2025 3:20 PM EDT BLDUWFRRHCOXPF81/19/2024 LIPID FQDJKZHMH00/20/2023 5:24 PM EST from Last 3 Months or Most Recently Relevant to Health Maintenance Results * (ABNORMAL) Troponin, High Sensitivity, 1 Hour (07/02/2025 4:34 PM EDT) ComponentValueRef RangeTest MethodAnalysis TimePerformed AtPathologist SignatureTroponin I, High Kbrwwkxgpui39(HH)0 - 20 ng/L LAB IMMUNOASSAY METHOD 07/02/2025 5:24 PM [facility] LABComment:Previous result verified on 07/02/2025 1559 on specimen/case [id number] called with component [facility] for procedure Troponin I, High Sensitivity, Initial with value 89 ng/L.Specimen (Source)Anatomical Location / LateralityCollection Method / VolumeCollection TimeReceived TimeBloodVenous blood specimen / Unknown Venipuncture / Wibfcnq7207/02/2025 4:34 PM EDT07/02/2025 4:43 PM EDT [facility] LAB - 07/02/2025 5:24 PM EDT Less [...] performed using a different testing methodology at [facility] than at other [facility]. Direct result comparisons should only be made within the same method. Authorizing ProviderResult TypeResult StatusRajan Gallegos [facility] BLOOD ORDERABLESFinal ResultPerforming OrganizationAddressCity/State/ZIP CodePhone Number [facility] [address] [place] [address] * ECG 12 lead (07/02/2025 4:15 PM EDT) Only the most recent of2 resultswithin the time period is included. ComponentValueRef RangeTest MethodAnalysis TimePerformed AtPathologist Signature Ventricular Tqen55ZOVYPRNRzpepv Ixdn55AUDGUCDPW Kulhsshd479ykKBBWKWG Zymmtnul622 msMUSEQT Xjjjkoch465opRLODXTB Calculation(Bazett)494msMUSEP Oqiv14asbbijaONVAK Sumner-36degreesMUSET Mcjt92smxhstrYMQCTAL Evtcs10imhdaCEVNW Ipvxj361dzPUBWS Onset 114msMUSEP Tgslfr596tvPGRNU Isjflz732nhHFLXDNH Gwhvrgmvfw703kfLUJEYcabgctv (Source)Anatomical Location / LateralityCollection Method / VolumeCollection [...] and clinical correlation Confirmed by Estephanie Gomez ([id number]) on 07/03/2025 6:06:16 PM Procedure Note Estephanie [...] x10*3/uL LAB HEMATOLOGY METHOD 07/02/2025 3:41 PM [facility] LABnRBC0.00.0 - 0.0 /100 WBCs LAB HEMATOLOGY METHOD 07/02/2025 3:41 PM [facility] LABRBC4.09(L)4.50 - 5.90 x10*6/uL LAB HEMATOLOGY METHOD 07/02/2025 3:41 PM [facility] QHBFdjxpaxrql73.513.5 - 17.5 g/dL LAB HEMATOLOGY METHOD 07/02/2025 3:41 PM [facility] UUQCslsymawlj21.041.0 - 52.0 % LAB HEMATOLOGY METHOD 07/02/2025 3:41 PM [facility] PLYWGR012(H)80 - 100 fL LAB HEMATOLOGY METHOD 07/02/2025 3:41 PM [facility] OWGBMT54.5(H)26.0 - 34.0 pg LAB HEMATOLOGY METHOD 07/02/2025 3:41 PM [facility] CMOEZZQ41.532.0 - 36.0 g/dL LAB HEMATOLOGY METHOD 07/02/2025 3:41 PM [facility] ZHPGKI28.211.5 - 14.5 % LAB HEMATOLOGY METHOD 07/02/2025 3:41 PM [facility] XAZEdiroocmb437705 - 450 x10*3/uL LAB HEMATOLOGY METHOD 07/02/2025 3:41 PM [facility] LABNeutrophils %68.040.0 - 80.0 % LAB HEMATOLOGY METHOD 07/02/2025 3:41 PM [facility] LABImmature Granulocytes %, Automated0.30.0 - 0.9 % LAB HEMATOLOGY METHOD 07/02/2025 3:41 PM [facility] LABComment:Immature Granulocyte Count (IG) includes promyelocytes, myelocytes and metamyelocytes but does not i nclude bands. Percent differential counts (%) should be interpreted in the context of the absolute cell counts (cells/UL).Lymphocytes %23.213.0 - 44.0 % LAB HEMATOLOGY METHOD 07/02/2025 3:41 PM [facility] LABMonocytes %7.72.0 - 10.0 % LAB HEMATOLOGY METHOD 07/02/2025 3:41 PM [facility] LABEosinophils %0.50.0 - 6.0 % LAB HEMATOLOGY METHOD 07/02/2025 3:41 PM [facility] LABBasophils %0.30.0 - 2.0 % LAB HEMATOLOGY METHOD 07/02/2025 3:41 PM [facility] LABNeutrophils Absolute4.231.20 - 7.70 x10*3/uL LAB HEMATOLOGY METHOD 07/02/2025 3:41 PM [facility] LABComment:Percent differential counts (%) should be interpreted in the context of the absolute cell counts (ce lls/uL).Immature Granulocytes Absolute, Automated0.020.00 - 0.70 x10*3/uL LAB HEMATOLOGY METHOD 07/02/2025 3:41 PM [facility] LABLymphocytes Absolute1.441.20 - 4.80 x10*3/uL LAB HEMATOLOGY METHOD 07/02/2025 3:41 PM [facility] LABMonocytes Absolute0.480.10 - 1.00 x10*3/uL LAB HEMATOLOGY METHOD 07/02/2025 3:41 PM [facility] LABEosinophils Absolute0.030.00 - 0.70 x10*3/uL LAB HEMATOLOGY METHOD 07/02/2025 3:41 PM [facility] LABBasophils Absolute0.020.00 - 0.10 x10*3/uL LAB HEMATOLOGY METHOD 07/02/2025 3:41 PM [facility] LABSpecimen (Source)Anatomical Location / LateralityCollection Method / VolumeCollection TimeReceived TimeBlood Venous blood specimen / UnknownVenipuncture / Yubfigi0907/02/2025 3:37 PM EDT 07/02/2025 3:37 PM EDT Narrative Authorizing ProviderResult TypeResult StatusCameron D Lemantonio DOLAB BLOOD ORDERABLESFinal ResultPerforming OrganizationAddressCity/State/ZIP CodePhone Number [facility] [address] [place] [address] * (ABNORMAL) Troponin I, High Sensitivity, Initial (07/02/2025 3:37 PM EDT) ComponentValueRef RangeTest MethodAnalysis TimePerformed AtPathologist SignatureTroponin I, High Etaciwlzghh97(HH)0 - 20 ng/L LAB IMMUNOASSAY METHOD 07/02/2025 3:59 PM [facility] LABSpecimen (Source)Anatomical Location / LateralityCollection Method / VolumeCollection TimeReceived TimeBlood Venous blood specimen / UnknownVenipuncture / Khyaknn1707/02/2025 3:37 PM EDT 07/02/2025 3:37 PM EDT Narrative [facility] - 07/02/2025 3:59 PM EDT [...] performed using a different testing methodology at [facility] than at other [facility]. Direct result comparisons should only be made within the same method. Authorizing ProviderResult TypeResult StatusCameron Becca El [facility] BLOOD ORDERABLESFinal ResultPerforming OrganizationAddressCity/State/ZIP CodePhone Number [facility] [address] [place] [address] * (ABNORMAL) Protime-INR (07/02/2025 3:37 PM EDT)ComponentValueRef RangeTest MethodAnalysis TimePerformed AtPathologist CifupyqloRwxmkau36.8(H)9.8 - 12.4 seconds LAB COAGULATION METHOD 07/02/2025 3:42 PM [facility] LABINR1.3(H)0.9 - 1.1 LAB COAGULATION METHOD 07/02/2025 3:42 PM [facility] LABSpecimen (Source)Anatomical Location / LateralityCollection Method / VolumeCollection TimeReceived TimeBlood Venous blood specimen / UnknownVenipuncture / Bodmsli4407/02/2025 3:37 PM EDT 07/02/2025 3:37 PM EDT Narrative Authorizing ProviderResult TypeResult StatusCamerokonrad Gallegos [facility] BLOOD ORDERABLESFinal ResultPerforming OrganizationAddressCity/State/ZIP CodePhone Number [facility] [address] [place] [address] * (ABNORMAL) Comprehensive Metabolic Panel (07/02/2025 3:37 PM EDT)Component ValueRef RangeTest MethodAnalysis TimePerformed AtPathologist SignatureGlucose 9774 - 99 mg/dL LAB CHEMISTRY METHOD 07/02/2025 3:52 PM [facility] FQUZvqmcu121992 - 145 mmol/L LAB CHEMISTRY METHOD 07/02/2025 3:52 PM [facility] LABPotassium4.13.5 - 5.3 mmol/L LAB CHEMISTRY METHOD 07/02/2025 3:52 PM [facility] WBMHaziaqyh81878 - 107 mmol/L LAB CHEMISTRY METHOD 07/02/2025 3:52 PM [facility] EDSImhoymfdqqt0088 - 32 mmol/L LAB CHEMISTRY METHOD 07/02/2025 3:52 PM [facility] LABAnion Hig6278 - 20 mmol/L LAB CHEMISTRY METHOD 07/02/2025 3:52 PM [facility] LABUrea Jlqztipz741 - 23 mg/dL LAB CHEMISTRY METHOD 07/02/2025 3:52 PM [facility] LABCreatinine0.950.50 - 1.30 mg/dL LAB CHEMISTRY METHOD 07/02/2025 3:52 PM [facility] LABeGFR>90>60 mL/min/1.73m*2 LAB CHEMISTRY METHOD 07/02/2025 3:52 PM [facility] LABComment: Calculations of estimated GFR are performed using the 2020 CKD-EPI Study Refit equation without therace variable for the IDMS-Traceable creatinine methods. https://jasn.asnjournals.org/content//ASN.6162550588 Calcium9.08.6 - 10.3 mg/dL LAB CHEMISTRY METHOD 07/02/2025 3:52 PM [facility] LABAlbumin4.13.4 - 5.0 g/dL LAB CHEMISTRY METHOD 07/02/2025 3:52 PM [facility] LABAlkaline Npufcogtrbf3302 - 120 U/L LAB CHEMISTRY METHOD 07/02/2025 3:52 PM [facility] LABTotal Protein6.0(L)6.4 - 8.2 g/dL LAB CHEMISTRY METHOD 07/02/2025 3:52 PM [facility] DAVCJW41(H)9 - 39 U/L LAB CHEMISTRY METHOD 07/02/2025 3:52 PM [facility] LABBilirubin, Total1.00.0 - 1.2 mg/dL LAB CHEMISTRY METHOD 07/02/2025 3:52 PM [facility] FIISTA7468 - 52 U/L LAB CHEMISTRY METHOD 07/02/2025 3:52 PM [facility] LABComment:Patients treated with Sulfasalazine may generate falsely decreased results for ALT.Specimen (Source) Anatomical Location / LateralityCollection Method / VolumeCollection Time Received TimeBloodVenous blood specimen / UnknownVenipuncture / Unknown 07/02/2025 3:37 PM EDT07/02/2025 3:37 PM EDT Narrative Authorizing ProviderResult TypeResult StatusCamdallin SARMIENTOAB BLOOD ORDERABLESFinal ResultPerforming OrganizationAddressCity/State/ZIP CodePhone Number [facility] [address] [place] [address] * XR chest 1 view (07/02/2025 3:32 PM EDT)Anatomical RegionLateralityModality Thoracic, ChestComputed RadiographySpecimen (Source)Anatomical Location / LateralityCollection Method / VolumeCollection TimeReceived Time07/02/2025 3:57 PM EDT07/02/2025 3:57 PM EDT Impressions 07/02/2025 3:56 PM EDT 1. No evidence of acute cardiopulmonary process. ? MACRO: None ?? Signed by: Fidel Trevino 07/02/2025 3:56 PM Dictation workstation: ?? [id number] Narrative 07/02/2025 3:56 PM EDT Interpreted By: Fidel Trevino, STUDY: XR CHEST 1 VIEW; ??07/02/2025 3:32 pm ?? INDICATION: Signs/Symptoms:chest pain. ? COMPARISON: 09/04/2023 ?? ACCESSION NUMBER(S): [id number] ?? ORDERING CLINICIAN: RAJAN GALLEGOS ?? FINDINGS: [...] INDICATION: Signs/Symptoms:chest pain. COMPARISON: 09/04/2023 ACCESSION NUMBER(S): [id number] ORDERING CLINICIAN: RAJAN GALLEGOS FINDINGS: CARDIOMEDIASTINAL SILHOUETTE: Cardiomediastinal silhouette is mildly enlarged. LUNGS: Lungs are clear. ABDOMEN: No remarkable upper abdominal findings. BONES: No acute osseous changes. Prior ACDF partially visualized. IMPRESSION: 1. No evidence of acute cardiopulmonary process. MACRO: None Signed by: Fidel Trevino 07/02/2025 3:56 PM Dictation workstation: [id number] Authorizing ProviderResult TypeResult StatusCamerokonrad Gallegos [facility] XR PROCEDURESFinal Result * Echocardiogram (04/10/2024) Narrative 04/10/2024 Ordered by an unspecified provider. Authorizing ProviderResult TypeResult StatusGeneric Provider ScanningCV ECHO PROCEDURESFinal Result * Lipid Panel (10/11/2023 5:24 PM EST)ComponentValueRef RangeTest MethodAnalysis TimePerformed AtPathologist LsvmvmgzeXrzfzkfutkl7331 - 199 mg/dL LAB CHEMISTRY METHOD 10/12/2023 12:18 [facility] LABComment: ?Age ?Desirable ?? Borderline High ?? [...] be performed immediately prior to Metamizole dosing. HDL-Ogzpgnudqad44.0mg/dL LAB CHEMISTRY METHOD 10/12/2023 12:18 [facility] LABComment: Age ? Very Low ?? Low ? Normal ?High ?? 0-19 Y < 35 < 40 40-45 ---- 20-24 Y ---- < 40 >45 ---- >24 Y ---- < 40 40-60 >60 Cholesterol/HDL Ratio1.9 LAB CHEMISTRY METHOD 10/12/2023 12:18 [facility] LABComment: Ref Values Desirable < 3.4 High Risk > 5.0 LDL Eamxibllgs39<=99 mg/dL LAB CHEMISTRY METHOD 10/12/2023 12:18 [facility] LABComment: ?Near ?? Borderline ?AGE ?Desirable ??Optimal ?High ? High ? Very High 0-19 Y 0 - 109 --- 110-129 >/= 130 ---- 20-24 Y 0 - 119 --- 120-159 >/= 160 ---- >24 Y 0 - 99 100-129 130-159 160-189 >/=190 KZPM835 - 40 mg/dL LAB CHEMISTRY METHOD 10/12/2023 12:18 [facility] HKWKliefqwzctzak5379 - 149 mg/dL LAB CHEMISTRY METHOD 10/12/2023 12:18 [facility] LABComment: Age ? Desirable ?? Borderline High [...] immediately prior to Metamizole dosing. Non HDL Qkthujclgtw377 - 149 mg/dL LAB CHEMISTRY METHOD 10/12/2023 12:18 [facility] LABComment: ?Age ? Desirable ?? Borderline High ?? High ? Very High 0-19 Y 0 - 119 120 - 144 >/= 145 >/= 160 20-24 Y 0 - 149 150 - 189 >/= 190 ---- >24 Y 30 mg/dL above LDL Cholesterol goal Specimen (Source)Anatomical Location / LateralityCollection Method / Volume Collection TimeReceived TimeBloodVenous blood specimen / UnknownVenipuncture / Uvfvzoz3210/11/2023 5:24 PM EST10/11/2023 5:28 PM EST Narrative Authorizing ProviderResult TypeResult StatusJeff Aguilera DOL[facility] BLOOD ORDERABLESFinal ResultPerforming OrganizationAddressCity/State/ZIP CodePhone Number [facility] [address] [place] [address] from Last 3 Months or Most Recently Relevant to Health Maintenance Insurance * Guarantor: Syed Howard Yonathan TypeRelation to PatientDate of BirthPhone Billing AddressPersonal/[address] [place] [address] * Guarantor: LeeSyed Yonathan TypeRelation to PatientDate of BirthPhone Billing AddressPersonal/JmlufbCgss1965 [place] [address] MemberSubscriberPlan / Payer (Effective 2019-Present)Name:Syed Howard Konrad Relation to Subscriber:SelfName:Syed Howard Konrad Payer ID:Not on file Type:Not on file Address: [address] [place] [phone] Advance Directives For more information, please contact: [phone] (Available ) * Full Code (Latest Code Status on File) Date ActivatedDate TcnmbzswmhfLxrsxcuy76/20/2023 8:24 PMQuestionAnswerComments Plan of Care:* Code Status Discussion Not Completed Decision Maker:* Provider Rationale:* Patient condition does not warrant discussion * Full Code Date ActivatedDate FnagdltcxjjFtlrvovx07/13/2023 7:07 PM09/06/2023 3:29 PM QuestionAnswerCommentsPlan of Care:* Code Status Discussion Completed Decision Maker:* Proxy Care Teams Team MemberRelationshipSpecialtyStart DateEnd Date Nelida Stock, PARK MAINTAINER-UPHOLSTERY SEWER Didi Muro [facility] [address] PCP - Xyaxdwf42/20/23
[2025-08-21 10:42] LABS: Anion Gap 14.2; Blood Urea Nitrogen 16.0 mg/dL (7.0-18.0); Calcium 8.7 mg/dL (8.5-10.1); Carbon Dioxide 27.8 mmol/L (21.0-32.0); Chloride 102 mmol/L (98-107); Estimated GFR (African America >60 (>=60 mL/min/1.73m^2); Estimated GFR (Non-African Ame >60 (>=60 mL/min/1.73m^2); Glucose 96 mg/dL (74-106); Potassium 4.0 mmol/L (3.5-5.1); Sodium 140 mmol/L (136-145)
== END 2025-08-21 10:10 | disposition home or self-care (01) ==
LOC: LAB 10:10
PROVIDERS: PCP Nurse Practitioner; Visit Provider Nurse Practitioner Family
DX: I50.32 Chronic diastolic (congestive) heart failure (principal)
CPT/HCPCS: 36415; 80048